=== PATIENT | male | born 1940 | race Caucasian/White ===

== ENCOUNTER → 2018-04-19 06:56 | Outpatient (CLI) | payer MEDICARE, OTHER, SELFPAY ==
[2018-04-19 07:56] LABS: AST(SGOT) 24 U/L (15-37); Alanine Aminotransfer ALT/SGPT 26 U/L (16-61); Albumin, Serum 3.6 g/dL (3.2-5.0); Alkaline Phosphatase 50 U/L (45-117); Bilirubin, Direct 0.14 mg/dL (0.00-0.30); Cholesterol 126 mg/dL (200); Globulin 3.3 g/dL (2.2-4.2); High Density Lipoprotein 50 mg/dL; Protein, Total 6.9 g/dL (6.4-8.2); Triglycerides 82 mg/dL; Very Low Density Lipoprotein 16 mg/dL (5-40)
== END ==
PROVIDERS: Family Provider Family Medicine; PCP Family Medicine; Visit Provider Internal Medicine Cardiovascular Disease
DX: I10 Essential (primary) hypertension (principal); E78.2 Mixed hyperlipidemia
CPT/HCPCS: 36415; 80061; 80076

== ENCOUNTER → 2018-05-01 06:09 | Outpatient (CLI) | payer MEDICARE, OTHER, SELFPAY ==
--- NOTE | 2018-05-01 16:20 | STRESSREP ---
Stress Test Report Exercise myocardial perfusion stress test. 78 year old man with a history of coronary artery disease status post pacemaker placement. Medications: Aspirin nitroglycerin rosuvastatin omeprazole. Stress protocol. Resting EKG demonstrates normal sinus rhythm with a rate of 60 bpm. Previous inferior infarct cannot be excluded resting blood pressures 130/84 mmHg. The patient exercised according to regular Macario protocol for total duration of 9 minutes maximum heart rate attained was 136 bpm is 95% maximum predicted heart rate the maximum workload attained was 10.1 metabolic equivalents. At rest there were no ST or T-wave changes noted suggest ischemia peak exercise upsloping ST changes only were noted with no meet the criteria for ischemia. No clinical angina was noted. The resting blood pressure 730/84 with a peak blood pressure 164/82 mmHg rate pressure product was 21,900. Myocardial perfusion protocol. 11.3 mCi of technetium 99m sestamibi was injected at rest. Patient exercised according to regular Macario protocol for total duration of 9 minutes. At peak exercise 33.1 mCi of technetium 99m sestamibi was injected stress images were obtained stress and rest images were reconstructed and compared in the short axis vertical long and horizontal long axis. Gated images were also obtained pre- Perfusion SPECT analysis: Review of the stress images demonstrate normal uptake of tracer noted in all areas of the myocardium. The resting images similarly demonstrate normal uptake of tracer noted in all areas of myocardium. No areas of reversibility noted suggest ischemia and no previous infarct is noted. Gated SPECT analysis: The gated ejection fraction is 58%. Conclusion: Normal pharmacologic myocardial perfusion stress test. Preserved ejection fraction.
== END ==
PROVIDERS: Family Provider Family Medicine; PCP Family Medicine; Visit Provider Internal Medicine Cardiovascular Disease
DX: I25.10 Atherosclerotic heart disease of native coronary artery without angina pectoris (principal)
CPT/HCPCS: 78452; 93017; A9500; A4216

== ENCOUNTER → 2018-06-08 10:03 | Outpatient (CLI) | payer MEDICARE, OTHER, SELFPAY ==
[2018-06-08 11:36] LABS: PSA,Total- Diagnostic 3.37 ng/mL (0.0-4.0)
== END ==
PROVIDERS: Family Provider Family Medicine; PCP Family Medicine; Visit Provider Nurse Practitioner Adult Health
DX: R97.20 Elevated prostate specific antigen [PSA] (principal)
CPT/HCPCS: 36415; 84153

== ENCOUNTER 2019-04-12 20:27 | Inpatient (IN) | payer MEDICARE, OTHER, SELFPAY ==
[2019-04-12] VITALS (7 sets, daily range): BP systolic 103–122; BP diastolic 63–80; PULSE 98–129; RESP 16–22; TEMP 38.8–38.9; O2SAT 94–98; BMI 25.1
[2019-04-12 21:32] LABS: Lactic Acid 1.7 mmol/L (0.4-2.0)
[2019-04-12 21:39] LABS: Absolute Lymphocyte Count 0.38 X10^3/uL (0.83-4.51); Absolute Neutrophil Count 9.5 X10^3/uL (2.0-7.7); Basophil# 0.02 X10^3/uL; Basophil% 0.2 % (0-1); Eosinophil# 0.04 X10^3/uL; Eosinophils% 0.4 % (0-5); Hematocrit 44.1 % (40-54); Hemoglobin 15.2 g/dL (13.0-16.5); Lymphocyte # 0.38 X10^3/ul (4.0); Lymphocyte % 3.8 % (19-41); Mean Corp Hgb Conc 34.5 g/dL (32-36); Mean Corpuscular Hgb 30.9 pg (27.0-32.0); Mean Corpuscular Volume 89.6 fL (80-94); Mean Platelet Vol. 10.1 fl (6.2-12.0); Monocyte# 0.19 X10^3/uL; Monocyte% 1.9 % (0-10); NRBC Flagged by Analyzer 0 % (0-5); Neutrophil # 9.46 X10^3/uL (2.7-7.7); Neutrophil % 93.3 % (47-70); POSITIVE DIFFERENTIAL YES; Platelet Count 160 K/mm3 (150-450); RBC Distribution Width CV 12.3 % (11.6-14.6); RBC Distribution Width SD 40.7 fl (35.1-43.9); Red Blood Count 4.92 M/mm3 (4.6-6.2); White Blood Count 10.1 K/mm3 (4.4-11.0)
[2019-04-12 21:43] LABS: International Normalized Ratio 1.1; Partial Thromboplast Time 25.7 Seconds (24.1-36.2); Prothrombin Time (Protime)PT. 13.8 SECONDS (11.7-14.9)
--- NOTE | 2019-04-12 21:45 | RAD_ITS ---
STUDY: X-RAY CHEST REASON FOR EXAM: Male, 79 years old. Cough TECHNIQUE: Frontal and lateral views COMPARISON: January 04, 2017 FINDINGS: Stable sternotomy wires and left-sided pacemaker. The lungs are expanded. Mild right basilar interstitial prominence. Stable right upper lobe granulomas similar to previous study. Normal size heart. Normal mediastinum and mina. Normal visualized pulmonary arteries. Normal visualized aortic arch and descending thoracic aorta. Mild degenerative changes of the thoracic spine. Normal visualized ribs, clavicles, and shoulders. There is no demonstrated abnormality of the visualized soft tissue structures of the upper abdomen. RAD/Chest PA and Lateral IMPRESSION: Mild right basilar interstitial prominence. Electronically Signed: Aashish Reyes DO at 21:58 EDT Tel [phone], Service support ,
[2019-04-12 21:47] LABS: ALB/GLOB Ratio 1.1 RATIO (0.9-2.4); AST(SGOT) 24 U/L (15-37); Alanine Aminotransfer ALT/SGPT 22 U/L (16-61); Albumin, Serum 3.8 g/dL (3.2-5.0); Alkaline Phosphatase 56 U/L (45-117); Anion Gap 7 (5-15); BUN 18 mg/dL (7-18); BUN/Creat Ratio 14.5 RATIO (10-20); Calcium,Total 8.4 mg/dL (8.5-10.1); Chloride 107 mmol/L (98-107); Creatinine, Serum 1.24 mg/dL (0.70-1.30); EST Glomerular Filtration Rate 60 mL/min (>60); Est Glom Filt Rate - Afr Amer 72 mL/min (>60); Estimated Creatinine Clearance 48.31 ml/min; Globulin 3.4 g/dL (2.2-4.2); Glucose 118 mg/dL (74-106); Potassium 3.4 mmol/L (3.5-5.1); Protein, Total 7.2 g/dL (6.4-8.2); Sodium Level 136 mmol/L (136-145)
[2019-04-12 21:51] LABS: Differential Indicated SCAN CRITERIA MET
[2019-04-12 22:17] LABS: Anisocytosis RARE; Platelet Estimate ADEQUATE (ADEQ)
[2019-04-12] MEDS: 0.9% Normal Saline 1,000 ML 999 ML IV (22:24)
[2019-04-12] MEDS: Acetaminophen 500 MG Tablet 1000 MG PO (22:24)
[2019-04-12] MEDS: Ondansetron 4 MG/2 ML Vial IV (22:24)
[2019-04-12 22:33] LABS: Mucous, Urine 0 SEEN /hpf (<or=2+); Squamous Epithelial Cells - UA 0 SEEN /hpf (0-5)
[2019-04-12 22:35] LABS: Color, Urine Yellow (Yellow); Glucose, Dipstick Normal (Normal); Ketone-Dipstick Negative (Negative); Leukocyte Esterase-Dipstick 100 /ul (Negative); Nitrite-Dipstick Positive (Negative); Occult Blood-Urine 25 /ul (Negative); Protein-Dipstick 30 mg/dl (Negative); Specific Gravity, Urine 1.005 (1.002-1.030); Urine Bilirubin Dipstick Negative (Negative); Urine Clarity Cloudy (Clear); Urine Urobilinogen 4 mg/dl (Normal)
[2019-04-12 22:41] LABS: Bacteria 2+ /hpf (None Seen); Red Blood Cells-Urine 0-5 SEEN /hpf (0-5); White Blood Cells 50-100 SEEN /hpf (0-5)
[2019-04-12] MEDS: Ceftriaxone 1 GM/50 ML BAG IV (22:57)
--- NOTE | 2019-04-12 23:36 | PCM.HP.STD ---
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 His took his temperature today and it was 103 and therefore brought him into the ER today. In the ER he was found to meet Sirs criteria with tachycardia and his fever. He does not have a white count however on labs UA demonstrated UTI. He was given a dose of IV Rocephin and started on some gentle fluids. Lactic acid was 1.7. Chest x-ray was also obtained because he has a history of coughing the last several days and this was essentially normal without a sign of consolidation or pneumonia. Past Medical History Past Medical History (Chronic Problems): Chronic Problems (Last Reviewed 04/18/18 @ 15:24 by Bill Asif MD) Valvular heart disease (Chronic) Presence of permanent cardiac pacemaker (Chronic) Mobitz (type) II atrioventricular block (Chronic) PPM placement Peripheral vascular disease (Chronic) endarterectomy 09/27/2006 Atherosclerosis of [place] coronary artery of [place] heart without angina pectoris (Chronic) PTCA of RCA 1998; CABG with DINERO to LAD, SVG to RCA 09/27/2006; Hypertension (Chronic) GERD (gastroesophageal reflux disease) (Chronic) Hyperlipidemia (Chronic) Medical History: Medical History (Last Reviewed 04/18/18 @ 15:24 by Bill Asif MD) Mobitz (type) II atrioventricular block (Chronic) I44.1 PPM placement Peripheral vascular disease (Chronic) I73.9 endarterectomy 09/27/2006 Atherosclerosis of [place] coronary artery of [place] heart without angina pectoris (Chronic) I25.10 PTCA of RCA 1998; CABG with DINERO to LAD, SVG to RCA 09/27/2006; Hypertension (Chronic) I10 GERD (gastroesophageal reflux disease) (Chronic) K21.9 Hyperlipidemia (Chronic) E78.5 Fever and chills (Acute) R50.9 Weakness (Acute) R53.1 Mitral valve prolapse I34.1 History of left heart catheterization Z98.890 Allergies No Known Allergies Allergy (Verified 04/12/19 20:28) Home Medications: Ambulatory Orders Medication Instructions Recorded Aspirin [Aspirin, Baby] 81 mg PO DAILY@0800 11/10/14 Nitroglycerin (INPATIENT USE) 0.4 mg SUBLINGUAL Q5M PRN 01/03/17 [Nitrostat] lisinopril 2.5 mg tablet 5 mg PO DAILY tab 04/18/18 Omeprazole [Prilosec] 20 mg PO DAILY 04/13/19 Rosuvastatin Calcium [Crestor] 40 mg PO DAILY 04/13/19 Surgical History: Surgical History (Last Reviewed 04/18/18 @ 15:24 by Bill Asif MD) Presence of permanent cardiac pacemaker (Chronic) Z95.0 H/O endarterectomy Z98.890 Hx of CABG Z95.1 Surgical History: cholecystectomy, coronary bypass surgery Psychiatric History: No pertinent psych hx Smoking Status: Never smoker Alcohol: None Drugs: None - *Family History Maternal Family History: Family History (Last Reviewed 04/18/18 @ 15:24 by Bill Asif MD) Mother Cancer History Items: Cancer Paternal Family History: Family History (Last Reviewed 04/18/18 @ 15:24 by Bill Asif MD) Mother Cancer History Items: Heart Disease Sibling Family History: Family History (Last Reviewed 04/18/18 @ 15:24 by Bill Asif MD) Mother Cancer History Items: No pertinent history Review of Systems Constitutional: Reports: Chills, Fever, Weakness. Denies: Weight Change HEENT: Denies: Head Aches, Sinus Congestion, Sinus Drainage Cardiovascular: Denies: Chest Pain, Palpitations Respiratory: Reports: Cough. Denies: Shortness of breath at rest, Sputum production Gastrointestinal: Denies: Abdominal Pain, Nausea, Vomiting Genitourinary: Reports: Dysuria. Denies: Frequency, Hematuria Musculoskeletal: Denies: Joint Pain, Joint Tenderness Skin: Denies: Rash, Wounds Neurological: Denies: Numbness, Tingling, Focal weakness Psychiatric: Denies: Anxiety, Depression Hematologic/ Lymphatic: Denies: Easy Bruising, Easy Bleeding VTE Information - Inpt Only VTE Present on Admission: No - Physical Exam General: Alert, Oriented x3, Cooperative, No apparent distress HEENT: Atraumatic, PERRLA, EOMI, Normocephalic Oral: Moist Mucosa Neck: Supple, No JVD Lungs: Clear to auscultation, Normal air movement, No rhonchi, No wheeze, No rales Cardiovascular: Regular rate, Regular Rhythm, Normal S1, Normal S2, No murmurs Abdomen: Soft, Non Tender, Non-Distended, No Hepato-splenomegaly Extremities: No edema, Capillary Refill Less than 3 Seconds Skin: No rashes, No breakdown Neurological: Neuro grossly intact, Sensory exam intact to light touch and pain Psych/Mental Status: Normal Affect, Appropriate Vital Signs Temp Pulse Resp BP Pulse Ox 101.8 F H 102 H 20 H 114/71 96 04/12/19 23:01 04/12/19 23:00 04/12/19 23:00 04/12/19 23:00 04/12/19 23:00 Oxygen Flow Rate (L/min) 2 Oxygen Delivery Method Nasal Cannula Weight: 170 lb Body Mass Index (BMI) 25.1 Laboratory Tests Past 24 Hrs 04/12/19 04/12/19 04/12/19 20:55 20:55 20:55 WBC 10.1 RBC 4.92 Hgb 15.2 Hct 44.1 MCV 89.6 MCH 30.9 MCHC 34.5 RDW Std Deviation 40.7 RDW Coeff of Donell 12.3 Plt Count 160 MPV 10.1 Immature Gran % (Auto) 0.400 Neut % (Auto) 93.3 H Lymph % (Auto) 3.8 L [place] % (Auto) 1.9 Eos % (Auto) 0.4 Baso % (Auto) 0.2 Absolute Neuts (auto) 9.5 H Absolute Lymphs (auto) 0.38 L Absolute Nucleated RBC 0.00 Nucleated RBC % 0 Differential Comment SEE COMMENT Platelet Estimate ADEQUATE Anisocytosis RARE PT 13.8 INR 1.1 APTT 25.7 Sodium Potassium Chloride Carbon Dioxide Anion Gap BUN Creatinine Estim Creat Clear Calc Est GFR (MDRD) Af Amer Est GFR (MDRD) Non-Af BUN/Creatinine Ratio Glucose Lactic Acid 1.7 Calcium Total Bilirubin AST ALT Alkaline Phosphatase Total Protein Albumin Globulin Albumin/Globulin Ratio Urine Color Urine Clarity Urine pH Ur Specific [place] Urine Protein Urine Glucose (UA) Urine Ketones Urine Occult Blood Urine Nitrite Urine Bilirubin Urine Urobilinogen Ur Leukocyte Esterase Urine RBC Urine WBC Ur Squamous Epith Cells Urine Bacteria Urine Mucus 04/12/19 04/12/19 20:55 22:30 WBC RBC Hgb Hct MCV MCH MCHC RDW Std Deviation RDW Coeff of [place] Plt Count MPV Immature Gran % (Auto) Neut % (Auto) Lymph % (Auto) [place] % (Auto) Eos % (Auto) Baso % (Auto) Absolute Neuts (auto) Absolute Lymphs (auto) Absolute Nucleated RBC Nucleated RBC % Differential Comment Platelet Estimate Anisocytosis PT INR APTT Sodium 136 Potassium 3.4 L Chloride 107 Carbon Dioxide 22.0 Anion Gap 7 BUN 18 Creatinine 1.24 Estim Creat Clear Calc 48.31 Est GFR (MDRD) Af Amer 72 Est GFR (MDRD) Non-Af 60 BUN/Creatinine Ratio 14.5 Glucose 118 H Lactic Acid Calcium 8.4 L Total Bilirubin 0.90 AST 24 ALT 22 Alkaline Phosphatase 56 Total Protein 7.2 Albumin 3.8 Globulin 3.4 Albumin/Globulin Ratio 1.1 Urine Color Yellow Urine Clarity Cloudy Urine pH 7.0 Ur Specific [place] 1.005 Urine Protein 30 H Urine Glucose (UA) Normal Urine Ketones Negative Urine Occult Blood 25 H Urine Nitrite Positive H Urine Bilirubin Negative Urine Urobilinogen 4 H Ur Leukocyte Esterase 100 H Urine RBC 0-5 SEEN Urine WBC 50-100 SEEN Ur Squamous Epith Cells 0 SEEN Urine Bacteria 2+ Urine Mucus 0 SEEN Assessment/Plan All Active Problems (Last Reviewed 04/18/18 @ 15:24 by Bill Asif MD) Fever and chills (Acute) Weakness (Acute) 1. Sepsis secondary to UTI -Continue with Rocephin -IV fluids at 75, lactate is normal -Blood cultures and urine cultures are pending 2. HLD/HTN/Mobitz type II AV block status post pacemaker placement -Blood pressure and vital signs are stable -Continue with his home blood pressure medications -Continue with aspirin 3. GERD -Stable -Continue with PPI DVT: Lovenox Code Visit Inpatient E&M: 97267 Init Hosp L2
--- NOTE | 2019-04-12 23:40 | ED.VISSUMM ---
- ER Visit Summary Date of Service: 04/12/19 Chief Complaint: Fever History of Present Illness: The patient is a [address] Marv Rojas and Dr. Asif. He reports he has a fever that began today. States that yesterday he had a cough and a sore throat. However, those symptoms have resolved. He denies any abdominal pain. Reports he been nauseated and vomited 3 times today. No blood in his emesis. He had one episode of diarrhea. No blood in the stools. He denies any dysuria or frequency. He does complain of generalized weakness and confusion. Physical Examination: Vitals: 102.0, 114/78, 102, 20, 96% room air which is not hypoxic. General: Well-nourished and well-developed. Head: Normocephalic atraumatic. Neck: Supple, no lymphadenopathy. No JVD. Nontender. Cardiovascular: Regular rate and rhythm. No murmurs. Respiratory: No respiratory distress. Clear to auscultation bilaterally. Abdominal: Soft, nontender, nondistended, normal bowel sounds. No guarding, rebound, or peritoneal signs. Back: Nontender. No CVA tenderness. Extremities: Nontender, no edema. Skin: Normal color, no rash. Neurologic: Alert and oriented ?3. Cranial nerves II through XII are intact. Normal strength and sensation. Psych: Normal affect. Test Results: CBC shows segmented with a 93 lymphs at 4. Chem-7 shows potassium 3.4, glucose 118, calcium 8.4. LFTs are normal. Coags are normal. UA does show an infection. Chest x-ray shows chronic changes. Emergency Department Course and Treatment: Patient was given a liter of normal saline. He was given Tylenol p.o. and Rocephin IV. He had urine and blood cultures sent. Treatment Plan: Patient was discussed with Dr. Browning. He will be admitted to the hospital for further evaluation and treatment. Disposition: Admitted in improved condition. Impression: 1. Sepsis. 2. UTI. This note was generated with [employer] software. It may contain incorrect words, spelling, and punctuation that were not noted in review of the chart prior to signing
[2019-04-13] VITALS (14 sets, daily range): BP systolic 92–119; BP diastolic 49–65; PULSE 75–90; RESP 15–22; TEMP 36.8–38.7; O2SAT 94–100; BMI 25.2
[2019-04-13] MEDS: 0.9% Normal Saline 1,000 ML 75 ML IV ×2 (01:48→15:22)
[2019-04-13 06:46] LABS: Absolute Lymphocyte Count 0.42 X10^3/uL (0.83-4.51); Absolute Neutrophil Count 10.4 X10^3/uL (2.0-7.7); Basophil# 0.02 X10^3/uL; Basophil% 0.2 % (0-1); Eosinophil# 0.09 X10^3/uL; Eosinophils% 0.8 % (0-5); Hematocrit 38.8 % (40-54); Hemoglobin 13.2 g/dL (13.0-16.5); Lymphocyte # 0.42 X10^3/ul (4.0); Lymphocyte % 3.6 % (19-41); Mean Corpuscular Hgb 30.8 pg (27.0-32.0); Mean Corpuscular Volume 90.4 fL (80-94); Mean Platelet Vol. 9.9 fl (6.2-12.0); Monocyte# 0.53 X10^3/uL; Monocyte% 4.6 % (0-10); NRBC Flagged by Analyzer 0 % (0-5); Neutrophil # 10.37 X10^3/uL (2.7-7.7); Neutrophil % 90.1 % (47-70); POSITIVE DIFFERENTIAL YES; POSITIVE MORPHOLOGY YES; Platelet Count 121 K/mm3 (150-450); RBC Distribution Width CV 12.8 % (11.6-14.6); RBC Distribution Width SD 41.8 fl (35.1-43.9); Red Blood Count 4.29 M/mm3 (4.6-6.2); White Blood Count 11.5 K/mm3 (4.4-11.0)
[2019-04-13 06:58] LABS: Differential Indicated SCAN CRITERIA MET
[2019-04-13 07:16] LABS: Anion Gap 5 (5-15); BUN 18 mg/dL (7-18); BUN/Creat Ratio 16.1 RATIO (10-20); Calcium,Total 7.8 mg/dL (8.5-10.1); Chloride 108 mmol/L (98-107); Creatinine, Serum 1.12 mg/dL (0.70-1.30); EST Glomerular Filtration Rate 67 mL/min (>60); Est Glom Filt Rate - Afr Amer 81 mL/min (>60); Estimated Creatinine Clearance 53.48 ml/min; Glucose 99 mg/dL (74-106); Potassium 3.8 mmol/L (3.5-5.1); Sodium Level 139 mmol/L (136-145)
--- NOTE | 2019-04-13 08:37 | PCM.PROGNOTE ---
Subjective: Chief complaint: Follow-up after admission for acute cystitis with sepsis. Patient seen and examined. No acute events overnight. Today, he feels better, complains of some dysuria. Denies any more fever. He denied cough or sputum production. He has no more nausea. Denies abdominal pain, constipation or diarrhea. His blood pressure has been borderline but he is asymptomatic, other vital signs are stable. - Physical Exam General: Alert, Oriented x3, Cooperative, No apparent distress HEENT: Atraumatic, PERRLA, EOMI, Normocephalic Oral: Moist Mucosa, No Gingival or Mucosal Lesions/ Ulcerations Neck: Supple, No JVD, Negative Carotid Bruits, Trachea Midline, Thyroid Normal Size and Texture Lungs: Clear to auscultation, Normal air movement, No rhonchi, No rales, Diminished Cardiovascular: Regular rate, Regular Rhythm, Normal S1, Normal S2, PMI Normal Abdomen: Bowel Sounds Present, Soft, Non Tender, Non-Distended, No Hepato-splenomegaly Extremities: No clubbing, No cyanosis, No edema Skin: No rashes, No breakdown Lymphatic: No Cervical, Supraclavicular, or Inguinal Adenopathy Neurological: Cranial nerves II-XII grossly intact, Motor Exam 5/5 strength throughout Psych/Mental Status: Normal Affect, Appropriate, Alert and oriented to time, place, person, mood and affect Vital Signs Temp Pulse Resp BP Pulse Ox 99.0 F 83 20 H 94/51 L 94 04/13/19 05:30 04/13/19 07:10 04/13/19 05:30 04/13/19 05:30 04/13/19 05:30 Oxygen Flow Rate (L/min) 2 Oxygen Delivery Method Room Air Weight: 170 lb 10.205 oz Body Mass Index (BMI) 25.2 Intake and Output for Last 24 Hours 04/11/19 04/12/19 04/13/19 23:59 23:59 23:59 Intake Total 259 / 259 Balance 259 / 259 Laboratory Tests Past 24 Hrs 04/12/19 04/12/19 04/12/19 20:55 20:55 20:55 WBC 10.1 RBC 4.92 Hgb 15.2 Hct 44.1 MCV 89.6 MCH 30.9 MCHC 34.5 RDW Std Deviation 40.7 RDW Coeff of [place]ell 12.3 Plt Count 160 MPV 10.1 Immature Gran % (Auto) 0.400 Neut % (Auto) 93.3 H Lymph % (Auto) 3.8 L [place] % (Auto) 1.9 Eos % (Auto) 0.4 Baso % (Auto) 0.2 Absolute Neuts (auto) 9.5 H Absolute Lymphs (auto) 0.38 L Absolute Nucleated RBC 0.00 Nucleated RBC % 0 Differential Comment SEE COMMENT Platelet Estimate ADEQUATE Anisocytosis RARE PT 13.8 INR 1.1 APTT 25.7 Sodium Potassium Chloride Carbon Dioxide Anion Gap BUN Creatinine Estim Creat Clear Calc Est GFR (MDRD) Af Amer Est GFR (MDRD) Non-Af BUN/Creatinine Ratio Glucose Lactic Acid 1.7 Calcium Total Bilirubin AST ALT Alkaline Phosphatase Total Protein Albumin Globulin Albumin/Globulin Ratio Urine Color Urine Clarity Urine pH Ur Specific [place] Urine Protein Urine Glucose (UA) Urine Ketones Urine Occult Blood Urine Nitrite Urine Bilirubin Urine Urobilinogen Ur Leukocyte Esterase Urine RBC Urine WBC Ur Squamous Epith Cells Urine Bacteria Urine Mucus 04/12/19 04/12/19 04/13/19 20:55 22:30 05:34 WBC 11.5 H RBC 4.29 L Hgb 13.2 Hct 38.8 L MCV 90.4 MCH 30.8 MCHC 34.0 RDW Std Deviation 41.8 RDW Coeff of [place] 12.8 Plt Count 121 L MPV 9.9 Immature Gran % (Auto) 0.700 Neut % (Auto) 90.1 H Lymph % (Auto) 3.6 L [place] % (Auto) 4.6 Eos % (Auto) 0.8 Baso % (Auto) 0.2 Absolute Neuts (auto) 10.4 H Absolute Lymphs (auto) 0.42 L Absolute Nucleated RBC 0.00 Nucleated RBC % 0 Differential Comment COMMENT Platelet Estimate Anisocytosis PT INR APTT Sodium 136 Potassium 3.4 L Chloride 107 Carbon Dioxide 22.0 Anion Gap 7 BUN 18 Creatinine 1.24 Estim Creat Clear Calc 48.31 Est GFR (MDRD) Af Amer 72 Est GFR (MDRD) Non-Af 60 BUN/Creatinine Ratio 14.5 Glucose 118 H Lactic Acid Calcium 8.4 L Total Bilirubin 0.90 AST 24 ALT 22 Alkaline Phosphatase 56 Total Protein 7.2 Albumin 3.8 Globulin 3.4 Albumin/Globulin Ratio 1.1 Urine Color Yellow Urine Clarity Cloudy Urine pH 7.0 Ur Specific [place] 1.005 Urine Protein 30 H Urine Glucose (UA) Normal Urine Ketones Negative Urine Occult Blood 25 H Urine Nitrite Positive H Urine Bilirubin Negative Urine Urobilinogen 4 H Ur Leukocyte Esterase 100 H Urine RBC 0-5 SEEN Urine WBC 50-100 SEEN Ur Squamous Epith Cells 0 SEEN Urine Bacteria 2+ Urine Mucus 0 SEEN 04/13/19 05:34 WBC RBC Hgb Hct MCV MCH MCHC RDW Std Deviation RDW Coeff of [place] Plt Count MPV Immature Gran % (Auto) Neut % (Auto) Lymph % (Auto) [place] % (Auto) Eos % (Auto) Baso % (Auto) Absolute Neuts (auto) Absolute Lymphs (auto) Absolute Nucleated RBC Nucleated RBC % Differential Comment Platelet Estimate Anisocytosis PT INR APTT Sodium 139 Potassium 3.8 Chloride 108 H Carbon Dioxide 26.0 Anion Gap 5 BUN 18 Creatinine 1.12 Estim Creat Clear Calc 53.48 Est GFR (MDRD) Af Amer 81 Est GFR (MDRD) Non-Af 67 BUN/Creatinine Ratio 16.1 Glucose 99 Lactic Acid Calcium 7.8 L Total Bilirubin AST ALT Alkaline Phosphatase Total Protein Albumin Globulin Albumin/Globulin Ratio Urine Color Urine Clarity Urine pH Ur Specific [place] Urine Protein Urine Glucose (UA) Urine Ketones Urine Occult Blood Urine Nitrite Urine Bilirubin Urine Urobilinogen Ur Leukocyte Esterase Urine RBC Urine WBC Ur Squamous Epith Cells Urine Bacteria Urine Mucus Medical Necessity - Tobacco Use Smoking Status: Never smoker Tobacco Use: Non-smoker Assessment/Plan This is a 79 years old male patient presented to the emergency room because of fever and weakness, found to have acute cystitis with sepsis and he was admitted for treatment. #1 acute cystitis/sepsis: He is on IV Rocephin. On admission, patient was febrile but this morning, he has normal fever. Blood pressure is borderline, asymptomatic, other vital signs are stable. Blood and urine cultures are pending. Plan to continue same treatment. #2 Mobitz type II AV block: Status post pacemaker. Heart rate stable, no symptoms. #3 CAD status post stents and CABG: Stable, no chest pain or shortness of breath. Continue aspirin, statins and lisinopril. #4 hypertension: Blood pressure is borderline, patient is asymptomatic. He is only on 2.5 mg of lisinopril. #5 hyperlipidemia: Continue statins. #6 GERD: Continue PPI. #7 peripheral vascular disease: Stable, continue aspirin and statins. #8 DVT prophylaxis: Subcu Lovenox. This note was generated with [employer] dictation software. It may contain incorrect words, spelling, and punctuation that were not noted in checking the note before signing. Code Visit Inpatient E&M: 55981 Subs Hosp L2
[2019-04-13] MEDS: Enoxaparin 40 MG/0.4 ML Syringe SC (09:08)
[2019-04-13] MEDS: Pantoprazole Sodium 20 MG Tablet PO (09:11)
--- NOTE | 2019-04-13 11:24 | CASEMGMT ---
RAUL BELTRAN assessment: Face to Face with patient for initial transition planning/care coordination assessment. RAUL BELTRAN introduced self and role at [facility], pt voices understanding and consents to assessment at this time. Pt is lying in bed in no distress at this time. Pt is A/Ox4 at this time and answers all questions appropriately at this time. Care providers, pharmacy, and demographics verified at this time. PCP: Crystal Specialists: Laya, cardio Preferred Pharmacy: [facility] Insurance: [facility] A/B, [employer] Prescription Benefit: Pt states does not have Rx coverage and states no concerns with getting meds at this time. Living Will/HPOA: Pt states has LW/HPOA and is aware that they are not currently on file at [facility] at this time. Pt states , Viviane Whitfield, is HPOA. LNOK: Viviane Whitfield, ; Chula Whitfield III, son Living Arrangements: Pt states lives with in 2 story home with bedroom on 2nd floor and states no concerns at home at this time. Pt states is normally independent with ADL's. Transportation: Pt states drives self and states no transportation concerns at this time. DME/HHC: Pt states has grab bars and shower chair and states no need for any further DME at this time. Pt states no hx of HHC or SNF in the past. Pt states no concerns with going home at time of discharge. Pt states is retired. Pt states does not smoke but does drink ETOH occasionally. Pt states no further concerns/needs at this time. CM to follow PT/OT evals and for any further discharge planning/needs. Advised pt to ask for CM if any further questions/concerns/needs arise, voices understanding. Pt Goal: Home Plan: [place] RAUL BELTRAN
[2019-04-13] MEDS: Acetaminophen 325 MG Tablet 650 MG PO ×2 (14:50→21:40)
[2019-04-13] MEDS: Atorvastatin Calcium 80 MG Tablet PO (21:40)
[2019-04-14] VITALS (9 sets, daily range): BP systolic 118–134; BP diastolic 67–72; PULSE 67–94; RESP 16–17; TEMP 36.7–37.4; O2SAT 93–100
[2019-04-14] MEDS: 0.9% Normal Saline 1,000 ML 75 ML IV ×2 (04:40→15:28)
[2019-04-14 06:44] LABS: Absolute Lymphocyte Count 0.65 X10^3/uL (0.83-4.51); Absolute Neutrophil Count 12.9 X10^3/uL (2.0-7.7); Basophil# 0.02 X10^3/uL; Basophil% 0.1 % (0-1); Eosinophil# 0.01 X10^3/uL; Eosinophils% 0.1 % (0-5); Hematocrit 37.2 % (40-54); Hemoglobin 12.6 g/dL (13.0-16.5); Lymphocyte # 0.65 X10^3/ul (4.0); Lymphocyte % 4.4 % (19-41); Mean Corp Hgb Conc 33.9 g/dL (32-36); Mean Corpuscular Hgb 30.7 pg (27.0-32.0); Mean Corpuscular Volume 90.5 fL (80-94); Mean Platelet Vol. 10.7 fl (6.2-12.0); Monocyte# 0.94 X10^3/uL; Monocyte% 6.4 % (0-10); NRBC Flagged by Analyzer 0 % (0-5); Neutrophil % 87.1 % (47-70); POSITIVE MORPHOLOGY YES; Platelet Count 87 K/mm3 (150-450); Red Blood Count 4.11 M/mm3 (4.6-6.2); White Blood Count 14.8 K/mm3 (4.4-11.0)
[2019-04-14 07:17] LABS: Differential Indicated SCAN CRITERIA MET
[2019-04-14 07:36] LABS: Differential Comment SCANNED
--- NOTE | 2019-04-14 08:23 | PN_ITS ---
Subjective: Chief complaint: Follow-up after admission for acute cystitis with sepsis, developed gram-negative bacteremia. Patient seen and examined. No acute events overnight. Patient complained of urinary retention, needed straight cath last night. Again today, he complained of urinary retention. He mentioned that he takes Flomax at home but it was not listed on his home medication list. He still having spikes of fever. Other vital signs are stable. - Physical Exam General: Alert, Oriented x3, Cooperative, No apparent distress HEENT: Atraumatic, PERRLA, EOMI, Normocephalic Oral: Moist Mucosa, No Gingival or Mucosal Lesions/ Ulcerations Neck: Supple, No JVD, Negative Carotid Bruits, Trachea Midline, Thyroid Normal Size and Texture Lungs: Clear to auscultation, Normal air movement, No rhonchi, No wheeze, No rales Cardiovascular: Regular rate, Regular Rhythm, Normal S1, Normal S2, PMI Normal Abdomen: Bowel Sounds Present, Soft, Non Tender, Non-Distended, No Hepato- splenomegaly Extremities: No clubbing, No cyanosis, No edema Skin: No rashes, No breakdown Lymphatic: No Cervical, Supraclavicular, or Inguinal Adenopathy Neurological: Cranial nerves II-XII grossly intact, Neuro grossly intact Psych/Mental Status: Normal Affect, Appropriate, Alert and oriented to time, place, person, mood and affect Vital Signs Temp Pulse Resp BP Pulse Ox 98.0 F 77 17 119/67 100 04/14/19 04:45 04/14/19 07:51 04/14/19 04:45 04/14/19 04:45 04/14/19 04:45 Oxygen Flow Rate (L/min) 2 Oxygen Delivery Method Room Air Weight: 170 lb 10.205 oz Body Mass Index (BMI) 25.2 Intake and Output for Last 24 Hours 04/12/19 04/13/19 04/14/19 23:59 23:59 23:59 Intake Total 2293 / 2990 1072 / 1072 Output Total 725 / 725 Balance 2293 / 2990 347 / 347 Microbiology Past 72 Hours 04/12/19 22:43 Blood Culture - Preliminary Blood Culture (Wb) - Right Hand GNR lactose operating room assistant 04/12/19 22:30 Urine Culture - Preliminary Urine, Clean Catch Presumptive E. coli Laboratory Tests Past 24 Hrs 07/27/19 05:15 WBC 14.8 H RBC 4.11 L Hgb 12.6 L Hct 37.2 L MCV 90.5 MCH 30.7 MCHC 33.9 RDW Std Deviation 43.0 RDW Coeff of Donell 13.0 Plt Count 87 L MPV 10.7 Immature Gran % (Auto) 1.900 H Neut % (Auto) 87.1 H Lymph % (Auto) 4.4 L [place] % (Auto) 6.4 Eos % (Auto) 0.1 Baso % (Auto) 0.1 Absolute Neuts (auto) 12.9 H Absolute Lymphs (auto) 0.65 L Absolute Nucleated RBC 0.00 Nucleated RBC % 0 Differential Comment SCANNED Microbiology 04/12/19 22:43 Blood Culture (Wb) - Right Hand Blood Culture - Preliminary GNR lactose operating room assistant 04/12/19 22:30 Urine, Clean Catch Urine Culture - Preliminary Presumptive E. coli Medical Necessity - Tobacco Use Smoking Status: Never smoker Tobacco Use: Non-smoker Assessment/Plan This is a 79 years old male patient presented to the emergency room because of fever and weakness, found to have acute cystitis with sepsis and he was admitted for treatment. #1 acute cystitis/sepsis: He is on IV Rocephin. He is still having spikes of fever, white blood cell count is trending up. Other vital signs are stable. Urine culture revealed presumptive E. coli, final is pending. Blood culture revealed gram-negative rods, final is pending. Plan to continue same treatment, repeat CBC and BMP tomorrow morning. #2 gram-negative bacteremia: Likely source is the acute cystitis. Patient had a history of E. coli bacteremia back in 2015. He is on IV Rocephin as above. Plan to repeat blood culture today. #3 urinary retention: In context of history of benign prostatic hypertrophy, patient states that he takes Flomax at home. Plan for straight catheterization as needed, start Flomax. 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 Heart rate stable, no symptoms. #5 CAD status post stents and CABG: Stable, no chest pain or shortness of breath. Continue aspirin, statins and lisinopril. #6 hypertension: Blood pressure stable, continue lisinopril. #7 hyperlipidemia: Continue statins. #8 GERD: Continue PPI. #9 peripheral vascular disease: Stable, continue aspirin and statins. #10 DVT prophylaxis: Subcu Lovenox. This note was generated with [employer] dictation software. It may contain incorrect words, spelling, and punctuation that were not noted in checking the note before signing. Code Visit Inpatient E&M: 24201 Subs Hosp L3
[2019-04-14] MEDS: Aspirin 81 MG TAB.CHEW PO (08:43)
[2019-04-14] MEDS: Lisinopril 5 MG Tablet PO (08:44)
[2019-04-14] MEDS: Pantoprazole Sodium 20 MG Tablet PO (08:44)
[2019-04-14] MEDS: Tamsulosin HCl 0.4 MG Capsule PO (11:46)
--- NOTE | 2019-04-14 14:47 | NURSING ---
Straight cathed patient at this time for 550 - bladder scanned at 1410 for 552. Patient had begun to have pressure and had two failed attempts at voiding.
[2019-04-14] MEDS: Atorvastatin Calcium 80 MG Tablet PO (21:31)
[2019-04-15] VITALS (9 sets, daily range): BP systolic 116–133; BP diastolic 69–78; PULSE 73–80; RESP 16–18; TEMP 36.7–37.2; O2SAT 94–96
--- NOTE | 2019-04-15 01:30 | NURSING ---
REPORT GIVEN TO Janette ARMAS RN AT THIS TIME.
--- NOTE | 2019-04-15 01:33 | NURSING ---
Taking over patient care at this time from Cecily Henry RN
[2019-04-15 05:25] LABS: Absolute Lymphocyte Count 0.74 X10^3/uL (0.83-4.51); Absolute Neutrophil Count 8.6 X10^3/uL (2.0-7.7); Basophil# 0.02 X10^3/uL; Basophil% 0.2 % (0-1); Eosinophil# 0.09 X10^3/uL; Eosinophils% 0.9 % (0-5); Hematocrit 36.3 % (40-54); Hemoglobin 12.2 g/dL (13.0-16.5); Lymphocyte # 0.74 X10^3/ul (4.0); Lymphocyte % 7.1 % (19-41); Mean Corp Hgb Conc 33.6 g/dL (32-36); Mean Corpuscular Hgb 30.7 pg (27.0-32.0); Mean Corpuscular Volume 91.4 fL (80-94); Mean Platelet Vol. 10.5 fl (6.2-12.0); Monocyte# 0.84 X10^3/uL; Monocyte% 8.1 % (0-10); NRBC Flagged by Analyzer 0 % (0-5); Neutrophil # 8.56 X10^3/uL (2.7-7.7); Neutrophil % 82.7 % (47-70); Platelet Count 86 K/mm3 (150-450); RBC Distribution Width CV 12.8 % (11.6-14.6); RBC Distribution Width SD 43.4 fl (35.1-43.9); Red Blood Count 3.97 M/mm3 (4.6-6.2); White Blood Count 10.4 K/mm3 (4.4-11.0)
[2019-04-15 05:50] LABS: Anion Gap 9 (5-15); BUN 12 mg/dL (7-18); BUN/Creat Ratio 12.2 RATIO (10-20); Calcium,Total 7.9 mg/dL (8.5-10.1); Chloride 110 mmol/L (98-107); Creatinine, Serum 0.99 mg/dL (0.70-1.30); EST Glomerular Filtration Rate 78 mL/min (>60); Est Glom Filt Rate - Afr Amer 94 mL/min (>60); Glucose 103 mg/dL (74-106); Potassium 3.5 mmol/L (3.5-5.1); Sodium Level 142 mmol/L (136-145)
[2019-04-15] MEDS: 0.9% Normal Saline 1,000 ML 75 ML IV (06:18)
--- NOTE | 2019-04-15 08:12 | PCM.PROGNOTE ---
Subjective: Chief complaint: Follow-up after admission for acute cystitis, sepsis and E. coli bacteremia. Patient seen and examined. No acute events overnight. Today, he is feeling better, no complaints. He has been able to urinate after started on Flomax. Denies fever chills. His vital signs are stable. - Physical Exam General: Alert, Oriented x3, Cooperative, No apparent distress HEENT: Atraumatic, PERRLA, EOMI, Normocephalic Oral: Moist Mucosa, No Gingival or Mucosal Lesions/ Ulcerations Neck: Supple, No JVD, Negative Carotid Bruits, Trachea Midline, Thyroid Normal Size and Texture Lungs: Clear to auscultation, Normal air movement, No rhonchi, No wheeze, No rales Cardiovascular: Regular rate, Regular Rhythm, Normal S1, Normal S2, PMI Normal Abdomen: Bowel Sounds Present, Soft, Non Tender, Non-Distended, No Hepato-splenomegaly Extremities: No clubbing, No cyanosis, No edema Skin: No rashes, No breakdown Lymphatic: No Cervical, Supraclavicular, or Inguinal Adenopathy Neurological: Cranial nerves II-XII grossly intact, Neuro grossly intact Psych/Mental Status: Normal Affect, Appropriate Vital Signs Temp Pulse Resp BP Pulse Ox 98.1 F 73 16 116/69 96 04/15/19 03:15 04/15/19 07:22 04/15/19 03:15 04/15/19 03:15 04/15/19 03:15 Oxygen Flow Rate (L/min) 2 Oxygen Delivery Method Room Air Weight: 170 lb 10.205 oz Body Mass Index (BMI) 25.2 Intake and Output for Last 24 Hours 04/13/19 04/14/19 04/15/19 23:59 23:59 23:59 Intake Total 2293 / 2990 3682 / 3682 475 / 475 Output Total 1825 / 1825 350 / 350 Balance 2293 / 2990 1857 / 1857 125 / 125 Microbiology Past 72 Hours 04/12/19 22:30 Urine Culture - Final Urine, Clean Catch Presumptive E. coli 04/12/19 22:43 Blood Culture - Preliminary Blood Culture (Wb) - Right Hand GNR lactose email marketing executive Laboratory Tests Past 24 Hrs 04/15/19 04/15/19 05:05 05:05 WBC 10.4 RBC 3.97 L Hgb 12.2 L Hct 36.3 L MCV 91.4 MCH 30.7 MCHC 33.6 RDW Std Deviation 43.4 RDW Coeff of Donell 12.8 Plt Count 86 L MPV 10.5 Immature Gran % (Auto) 1.000 H Neut % (Auto) 82.7 H Lymph % (Auto) 7.1 L [place] % (Auto) 8.1 Eos % (Auto) 0.9 Baso % (Auto) 0.2 Absolute Neuts (auto) 8.6 H Absolute Lymphs (auto) 0.74 L Absolute Nucleated RBC 0.00 Nucleated RBC % 0 Sodium 142 Potassium 3.5 Chloride 110 H Carbon Dioxide 23.0 Anion Gap 9 BUN 12 Creatinine 0.99 Estim Creat Clear Calc 60.50 Est GFR (MDRD) Af Amer 94 Est GFR (MDRD) Non-Af 78 BUN/Creatinine Ratio 12.2 Glucose 103 Calcium 7.9 L Medical Necessity - Tobacco Use Smoking Status: Never smoker Tobacco Use: Non-smoker Assessment/Plan This is a 79 years old male patient presented to the emergency room because of fever and weakness, found to have acute cystitis with sepsis, E. coli bacteremia and he was admitted for treatment. #1 E. coli acute cystitis/sepsis: Remained on IV Rocephin. Has been afebrile overnight, other vitals stable. White blood cell count is back to normal. Urine culture revealed E. coli which was pansensitive. Plan to continue same treatment, anticipate discharge home tomorrow awaiting results of the repeat blood culture. #2 E. coli bacteremia: Likely source is the acute cystitis. On IV Rocephin as above. Initial blood culture revealed E. coli, it was pansensitive, sensitive to Rocephin. Repeat blood cultures pending. Patient had a history of E. coli bacteremia back in 2014. Plan to completion, awaiting results of repeat blood culture. #3 urinary retention: Started on Flomax, patient has been able to urinate, improving. 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 Heart rate stable, no symptoms. #5 CAD status post stents and CABG: Stable, no chest pain or shortness of breath. Continue aspirin, statins and lisinopril. #6 hypertension: Blood pressure stable, continue lisinopril. #7 hyperlipidemia: Continue statins. #8 GERD: Continue PPI. #9 peripheral vascular disease: Stable, continue aspirin and statins. #10 DVT prophylaxis: Subcu Lovenox. This note was generated with [employer] dictation software. It may contain incorrect words, spelling, and punctuation that were not noted in checking the note before signing. Code Visit Inpatient E&M: 95555 Subs Hosp L2
[2019-04-15] MEDS: Lisinopril 5 MG Tablet PO (10:02)
[2019-04-15] MEDS: Pantoprazole Sodium 20 MG Tablet PO (10:02)
[2019-04-15] MEDS: Aspirin 81 MG TAB.CHEW PO (10:02)
[2019-04-15] MEDS: Tamsulosin HCl 0.4 MG Capsule PO (17:28)
[2019-04-15] MEDS: Atorvastatin Calcium 80 MG Tablet PO (21:10)
[2019-04-16] MEDS: 0.9% NaCl Peripheral Flush Adult/Peds IV (00:24)
[2019-04-16 02:50] VITALS: BP 113/67; PULSE 78; RESP 18; TEMP 37; O2SAT 94
[2019-04-16 03:01] VITALS: PULSE 79
[2019-04-16 07:06] VITALS: PULSE 68
[2019-04-16 07:45] LABS: Bedside Glucose 130 mg/dL (70-110)
[2019-04-16 08:12] VITALS: BP 130/75; PULSE 76; RESP 16; TEMP 37.1; O2SAT 95
[2019-04-16] MEDS: Aspirin 81 MG TAB.CHEW PO (08:15)
[2019-04-16] MEDS: Lisinopril 5 MG Tablet PO (08:15)
[2019-04-16] MEDS: Pantoprazole Sodium 20 MG Tablet PO (08:21)
--- NOTE | 2019-04-16 08:40 | DCINST_ITS ---
You will use the following diet at home:: Cardiac Your food should be the consistency of: Regular Discharge Activity: Return to Normal Activity Weight Bearing Status: Weight bearing as tolerated Call your doctor if you observe: Fever of 101 or Higher, Shortness of breath, Dizziness, Fainting spells, Chest pain, Increased palpitations (irregular heartbeat), Uncontrolled pain Allergies/Adverse Reactions: Allergies No Known Allergies Allergy (Verified 04/12/19 20:28) Medications to take at Discharge Aspirin [Aspirin, Baby] 81 mg PO DAILY@0800 11/10/14 Nitroglycerin (INPATIENT USE) [Nitrostat] 0.4 mg SUBLINGUAL Q5M PRN 01/03/17 lisinopril 2.5 mg tablet 5 mg PO DAILY tab 04/18/18 Omeprazole [Prilosec] 20 mg PO DAILY 04/13/19 Rosuvastatin Calcium [Crestor] 40 mg PO DAILY 04/13/19 Cefdinir [Omnicef [equiv]] 300 mg PO Q12H #20 cap 04/16/19 Tamsulosin HCl [Flomax] 0.4 mg PO DAILY@1730 #90 cap 04/16/19 The following prescriptions were given: Tamsulosin HCl [Flomax] 0.4 mg PO DAILY@1730 #90 cap Transmission Status: Pending to [id number] Cefdinir [Omnicef [equiv]] 300 mg PO Q12H #20 cap Transmission Status: Pending to [id number] Primary Care Physician: Marv Rojas III, MD [Primary Care Provider] - Please follow up with your Primary Care Physician in: 1 week. Test Results: Test results from this visit will be discussed in further detail at your follow- up appointment, if applicable.
--- NOTE | 2019-04-16 10:46 | DS.PCM_ITS ---
Discharge Date and Diagnosis Date of Admission: 04/12/19 Date of Discharge: 04/16/19 - Primary Discharge Diagnosis #1 E. coli acute cystitis/sepsis. #2 E. coli bacteremia. #3 urinary retention/benign prostatic hypertrophy. - Secondary Discharge Diagnosis Chronic Problems (Last Updated 04/13/19 @ 08:39 by Lenny Ring MD) Valvular heart disease (Chronic) Presence of permanent cardiac pacemaker (Chronic) Mobitz (type) II atrioventricular block (Chronic) PPM placement Peripheral vascular disease (Chronic) endarterectomy 09/27/2006 Atherosclerosis of [place] coronary artery of [place] heart without angina pectoris (Chronic) PTCA of RCA 1998; CABG with DINERO to LAD, SVG to RCA 09/27/2006; Hypertension (Chronic) GERD (gastroesophageal reflux disease) (Chronic) Hyperlipidemia (Chronic) Hospital Course and Treatment Imaging Results: Clinical Impression(s) from Imaging Studies Chest X-Ray 04/12/19 21:45 IMPRESSION: Mild right basilar interstitial prominence. Electronically Signed: Aashish Reyes DO at 21:58 EDT Tel [phone], Service support , Operations: None Procedures: None Summary of Care Provided: Patient seen and examined on the day of discharge and appeared to be stable to be discharged home. He denies any more complaints, has been able to urinate w ithout difficulties. He has been afebrile for more than 48 hours, other vital signs are stable. The patient is a 79 year old M admitted because of fever and weakness and he was found to have sepsis secondary to E. coli acute cystitis and that was complicated by E. coli bacteremia. Patient was treated with IV Rocephin and IV fluids. Patient did have sepsis based on fever, tachycardia, leukocytosis. His lactic acid was normal. Urine culture revealed presumptive E. coli that was pansensitive. Initial blood culture revealed E. coli and this is attributed to urinary tract infection. With above-mentioned treatment, patient symptoms improved and he remained afebrile for more than 48 hours. His white blood cell count returned back to normal. Repeat blood cultures showed no growth in 48 hours. Patient had mild diarrhea, C. difficile was negative. According to the patient, he has been taking Flomax at home for prostate enlargement. Patient did have urine retention during his admission that needed straight catheterization. He was started back on Flomax and he did well and he was able to urinate without difficulties. Patient discharged home in a stable medical condition, discharged on Omnicef 300 mg p.o. twice daily for more than 10 days of treatment to complete total of 2 weeks of treatment for E. coli bacteremia, discharged on Flomax daily, maintained on previous home medications without any changes, recommended follow-up with PCP in 1 week. - Physical Exam General: Alert, Oriented x3, Cooperative, No apparent distress HEENT: Atraumatic, PERRLA, EOMI, Normocephalic Oral: Moist Mucosa, No Gingival or Mucosal Lesions/ Ulcerations Neck: Supple, No JVD, Negative Carotid Bruits, Trachea Midline, Thyroid Normal Size and Texture Lungs: Clear to auscultation, Normal air movement, No rhonchi, No wheeze, No rales, Diminished Cardiovascular: Regular rate, Regular Rhythm, Normal S1, Normal S2, PMI Normal Abdomen: Bowel Sounds Present, Soft, Non Tender, Non-Distended, No Hepato- splenomegaly Extremities: No clubbing, No cyanosis, No edema Skin: No rashes, No breakdown Lymphatic: No Cervical, Supraclavicular, or Inguinal Adenopathy Neurological: Cranial nerves II-XII grossly intact, Neuro grossly intact Vital Signs Temp Pulse Resp BP Pulse Ox 98.7 F 76 16 130/75 H 95 04/16/19 08:12 04/16/19 08:12 04/16/19 08:12 04/16/19 08:12 04/16/19 08:12 Oxygen Flow Rate (L/min) 2 Oxygen Delivery Method Room Air Weight: 170 lb 10.205 oz Body Mass Index (BMI) 25.2 Intake and Output for Last 24 Hours 04/14/19 04/15/19 04/16/19 23:59 23:59 23:59 Intake Total 3682 / 3682 2212 / 2212 Output Total 1825 / 1825 2850 / 2850 1100 / 1100 Balance 1857 / 1857 -638 / -638 -1100 / -1100 Microbiology Past 72 Hours 04/14/19 08:51 Blood Culture - Preliminary Blood Culture (Wb) - Anticubital Right No growth in 48 hours. 04/14/19 08:46 Blood Culture - Preliminary Blood Culture (Wb) - Right Hand No growth in 48 hours. 04/15/19 13:55 C. difficile DNA Amplification - Final Stool 04/12/19 22:43 Blood Culture - Preliminary Blood Culture (Wb) - Right Hand Escherichia coli 04/12/19 20:55 Blood Culture - Preliminary Blood Culture (Wb) - Anticubital Right No growth in 48 hours. 04/12/19 22:30 Urine Culture - Final Urine, Clean Catch Presumptive E. coli POC Glucose 04/12/19 20:43 POC Glucose 130 H Discharge Activity: Return to Normal Activity Weight Bearing Status: Weight bearing as tolerated Call your doctor if you observe: Fever of 101 or Higher, Shortness of breath, Dizziness, Fainting spells, Chest pain, Increased palpitations (irregular heartbeat), Uncontrolled pain Home Medications: Medications to take at Discharge Aspirin [Aspirin, Baby] 81 mg PO DAILY@0800 11/10/14 Nitroglycerin (INPATIENT USE) [Nitrostat] 0.4 mg SUBLINGUAL Q5M PRN 01/03/17 lisinopril 2.5 mg tablet 5 mg PO DAILY tab 04/18/18 Omeprazole [Prilosec] 20 mg PO DAILY 04/13/19 Rosuvastatin Calcium [Crestor] 40 mg PO DAILY 04/13/19 Cefdinir [Omnicef [equiv]] 300 mg PO Q12H #20 cap 04/16/19 Tamsulosin HCl [Flomax] 0.4 mg PO DAILY@1730 #90 cap 04/16/19 Following Prescrptions Were Given to Patient: Tamsulosin HCl [Flomax] 0.4 mg PO DAILY@1730 #90 cap Transmission Status: Received by [id number] Cefdinir [Omnicef [equiv]] 300 mg PO Q12H #20 cap Transmission Status: Received by [id number] Primary Care Physician: Marv Rojas III, MD [Primary Care Provider] - Please follow up with your Primary Care Physician in: 1 week. Please Follow Up With: Dr Marv Rojas Disposition: Home Minutes spent on discharge:: 32 Patient Condition:: Stable Medical Necessity - Tobacco Use Smoking Status: Never smoker Tobacco Use: Non-smoker Meaningful Use Info Meaningful Use Diagnoses (Choose all that apply): None applicable Code Visit Inpatient E&M: 19115 Disch Hosp
--- NOTE | 2019-04-17 14:03 | CASEMGMT ---
RAUL CM DC PHONE CALL DC DATE: 04/16/19 DC Disposition: Home Diagnosis on Discharge: E.Coli cystitis/sepsis LACE/STRATA: 06/21 Attempted call to home phone. No answer, and machine did not have name identifier. Ibis MORAN RN ACM
== END 2019-04-16 10:02 | disposition home or self-care (01) | DRG 872 ==
LOC: ED 21:09 → PCU 23:44
PROVIDERS: Admitting Provider Family Medicine; Emergency Provider Emergency Medicine; Family Provider Family Medicine; PCP Family Medicine; Visit Provider Hospitalist
DX: A41.51 Sepsis due to Escherichia coli [E. coli] (principal); N30.00 Acute cystitis without hematuria; I25.10 Atherosclerotic heart disease of native coronary artery without angina pectoris; K21.9 Gastro-esophageal reflux disease without esophagitis; I10 Essential (primary) hypertension; I73.9 Peripheral vascular disease, unspecified; E78.5 Hyperlipidemia, unspecified; N40.1 Benign prostatic hyperplasia with lower urinary tract symptoms; R33.8 Other retention of urine; I44.1 Atrioventricular block, second degree; Z95.0 Presence of cardiac pacemaker; Z95.5 Presence of coronary angioplasty implant and graft; Z95.1 Presence of aortocoronary bypass graft; Z79.82 Long term (current) use of aspirin
CPT/HCPCS: 36415; 71046; 80048; 80053; 81001; 82962; 83605; 85025; 85610; 85730; 87040; 87077; 87086; 87088; 87186; 87493; 94760; 97161; 97166; 99285; J7030; A4216; J0696; J2405

== ENCOUNTER → 2019-06-18 17:19 | Outpatient (CLI) | payer MEDICARE, OTHER, SELFPAY ==
[2019-04-19 08:38] VITALS: BMI 24.0
== END ==
PROVIDERS: Family Provider Family Medicine; PCP Family Medicine
DX: R82.998 Other abnormal findings in urine (principal)
CPT/HCPCS: 87086; 87088; 87186

== ENCOUNTER → 2019-07-16 09:06 | Outpatient (CLI) | payer MEDICARE, OTHER, SELFPAY ==
[2019-04-19 08:38] VITALS: BMI 24.0
[2019-07-16 11:19] LABS: PSA,Total- Diagnostic 3.01 ng/mL (0.0-4.0)
== END ==
PROVIDERS: Family Provider Family Medicine; PCP Family Medicine; Referring Provider Nurse Practitioner Adult Health; Visit Provider Nurse Practitioner Adult Health
DX: R97.20 Elevated prostate specific antigen [PSA] (principal)
CPT/HCPCS: 36415; 84153

== ENCOUNTER → 2020-01-22 08:36 | Outpatient (CLI) | payer MEDICARE, OTHER, SELFPAY ==
[2019-04-19 08:38] VITALS: BMI 24.0
[2020-01-22 10:13] LABS: PSA,Total- Diagnostic 2.82 ng/mL (0.0-4.0)
== END ==
PROVIDERS: PCP Family Medicine; Referring Provider Nurse Practitioner Adult Health; Visit Provider Nurse Practitioner Adult Health
DX: N40.3 Nodular prostate with lower urinary tract symptoms (principal)
CPT/HCPCS: 36415; 84153

== ENCOUNTER → 2022-06-02 | Outpatient (CLI) | payer MEDICARE, OTHER, SELFPAY ==
[2022-06-02 10:31] LABS: AST(SGOT) 20 U/L (15-37); Alanine Aminotransfer ALT/SGPT 25 U/L (16-61); Albumin, Serum 3.8 g/dL (3.2-5.0); Alkaline Phosphatase 50 U/L (45-117); Bilirubin, Direct 0.17 mg/dL (0.00-0.30); Cholesterol 126 mg/dL (200); Globulin 3.6 g/dL (2.2-4.2); High Density Lipoprotein 47 mg/dL; Protein, Total 7.4 g/dL (6.4-8.2); Triglycerides 75 mg/dL; Very Low Density Lipoprotein 15 mg/dL (5-40)
== END | disposition home or self-care (01) ==
PROVIDERS: PCP Family Medicine; Referring Provider Internal Medicine Cardiovascular Disease; Visit Provider Internal Medicine Cardiovascular Disease
DX: E78.00 Pure hypercholesterolemia, unspecified (principal)
CPT/HCPCS: 36415; 80061; 80076

== ENCOUNTER → 2023-10-05 | Outpatient (CLI) | payer MEDICARE, OTHER, SELFPAY ==
--- OUTSIDE RECORDS SUMMARY | 2023-10-05 06:31 | XMS RPT_ITS | CCD ---
Author Name Unknown Address [address] [place] [address] Organization [facility] Care Team Providers Care Machine Shop Lead Man Name Role Phone RAUL Fitzpatrick, Ksenia Rosenberg Unavailable Unavailable Jocelin Ruiz Unavailable Jocelin Ruiz Unavailable RAUL Fitzpatrick, Ksenia Rosenberg Unavailable Unavailable RAUL Fitzpatrick, Ksenia Rosenberg Unavailable Unavailable YOLANDA SOTO Unavailable Unavailable CEBUL III, CAROLE A Unavailable Unavailable RAUL Fitzpatrick, Ksenia Rosenberg Unavailable Unavailable RAUL Fitzpatrick, Ksenia Rosenberg Unavailable Unavailable RAUL Fitzpatrick, Ksenia Rosenberg Unavailable Unavailable Rufino Grimaldo Jr. Unavailable Terra Valdez Unavailable Natali Mcguire MD Primary Care Provider Rufino Grimaldo Jr. Unavailable Terra Valdez MD Unavailable [phone] Natali Mcguire MD Primary Care Provider [phone] NATALI MCGUIRE Primary Care Unavailable NATALI MCGUIRE Attending Unavailable NATALI MCGUIRE Primary Care Unavailable NATALI MCGUIRE Primary Care Unavailable NATALI MCGUIRE Referring Unavailable Allergies Allergy Classification Reported Allergen(s) Allergy Type Date of Onset Reaction(s) Facility (5 sources) NKDA drug allergy 05-22-2013 [facility] [employer] [facility] Work Phone: (5 sources) NKA drug allergy 05-22-2013 [facility] Work Phone: Medications Current Medications Medication Drug Class(es) Dates Sig (Normalized) Sig (Original) amoxicillin 875 mg oral tablet (17 sources) Penicillin-class Antibacterial Start: 08-17-2023 End: 08-24-2023 take 1 tablet by mouth twice daily amoxicillin (AMOXIL) 875 mg tablet Indications: Other acute nonsuppurative otitis media of left ear, recurrence not specified Take 1 tablet by mouth two times a day for 7 days. 14 tablet 0 08/17/2023 08/24/2023 Active Completed/Discontinued Medications Medication Drug Class(es) Dates Sig (Normalized) Sig (Original) aspirin 81 mg oral tablet (20 sources) Nonsteroidal Anti-inflammatory Drug Start: 01-15-2011 take 1 tablet by mouth once daily ASPIRIN 81 MG TABS One tablet by mouth daily ASPIRIN [id number] Brianna Ames Problems Active Problems Problem Classification Problem Date Documented Date Episodic/Chronic Cardiac dysrhythmias (8 sources) Sinus bradycardia; Translations: [Bradycardia, unspecified] Onset: 12-10-2016 12-10-2016 Chronic Conduction disorders (20 sources) Presence of cardiac pacemaker; Translations: [Atrioventricular block, first degree] Onset: 12-29-2016 01-11-2017 Chronic Coronary atherosclerosis and other heart disease (20 sources) 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; Translations: [Coronary arteriosclerosis] Onset: 01-15-2011 Resolved: 06-17-2015 06-16-2016 Chronic Disorders of lipid metabolism (20 sources) Hyperlipidemia; Translations: [Mixed hyperlipidemia] Onset: 05-25-2005 01-15-2011 Chronic Esophageal disorders (13 sources) Gastroesophageal reflux disease without esophagitis; Translations: [Gastro-esophageal reflux disease without esophagitis] Onset: 05-25-2005 07-01-2021 Chronic Essential hypertension (20 sources) Hypertensive disorder; Translations: [Essential hypertension] Onset: 08-28-2008 01-15-2011 Chronic Glaucoma (10 sources) 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; Translations: [Preglaucoma, unspecified, right eye] Onset: 07-01-2021 07-01-2021 Chronic Heart valve disorders (16 sources) Pulmonic valve regurgitation; Translations: [Mitral valve disorder] Onset: 01-15-2011 06-16-2016 Chronic Hyperplasia of prostate (13 sources) Benign prostatic hyperplasia; Translations: [Benign prostatic hyperplasia without lower urinary tract symptoms] Onset: 08-23-2005 Chronic Immunizations and screening for infectious disease (1 source) Vaccination needed; Translations: [Encounter for immunization] Episodic Other circulatory disease (8 sources) Disorder of carotid artery; Translations: [Occlusion and stenosis of unspecified carotid artery] Onset: 05-22-2013 05-22-2013 Chronic Other connective tissue disease (1 source) Unspecified disorder of synovium and tendon, left shoulder; Translations: [Unspecified disorder of synovium and tendon, left shoulder] Onset: 03-20-2018 Episodic Other injuries and conditions due to external causes (2 sources) Contusion; Translations: [Other injury of unspecified body region, initial encounter] Episodic Other skin disorders (2 sources) Disorder of left upper extremity; Translations: [Localized swelling, mass and lump, left upper limb] Episodic Other upper respiratory disease (11 sources) Allergic rhinitis; Translations: [Allergic rhinitis, unspecified] Onset: 08-23-2005 07-01-2021 Chronic Unclassified (5 sources) Placement of stent in coronary artery ; Translations: [Presence of coronary angioplasty implant and graft] Onset: 01-15-2011 06-16-2016 Unclassified (3 sources) Long-term drug therapy; Translations: [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] Onset: 01-15-2011 01-15-2011 Past or Other Problems Problem Classification Problem Date Documented Da te Episodic/Chronic Administrative/social admission (12 sources) Advance directive discussed with patient; Translations: [Other specified counseling] Onset: 01-01-2022 Episodic Coronary atherosclerosis and other heart disease (19 sources) Coronary angioplasty status; Translations: [Presence of aortocoronary bypass graft] Onset: 01-15-2011 01-15-2011 Episodic Diabetes mellitus without complication (14 sources) Hyperglycemia; Translations: [Hyperglycemia, unspecified] Onset: 07-01-2021 Episodic Inflammatory conditions of male genital organs (8 sources) Acute prostatitis; Translations: [Acute prostatitis] Onset: 11-18-2014 11-18-2014 Episodic Other aftercare (6 sources) Other usp (current) drug therapy; Translations: [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] Onset: 01-15-2011 01-15-2011 Episodic Other aftercare (11 sources) Patient encounter status; Translations: [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] Onset: 07-01-2021 07-01-2021 Episodic Other circulatory disease (5 sources) History of myocardial infarction; Translations: [Old myocardial infarction] Onset: 01-15-2011 01-15-2011 Episodic Other connective tissue disease (10 sources) Nontraumatic complete rupture of rotator cuff of left shoulder; Translations: [Complete rotator cuff tear or rupture of left shoulder, not specified as traumatic] Onset: 07-01-2021 07-01-2021 Episodic Other liver diseases (16 sources) Abnormal results of liver function studies; Translations: [Abnormal results of liver function studies] Onset: 01-15-2011 Resolved: 06-17-2015 01-15-2011 Episodic Other non-epithelial cancer of skin (10 sources) Malignant basal cell neoplasm of skin; Translations: [Basal cell carcinoma of skin, unspecified] Onset: 11-09-2017 07-01-2021 Episodic Other screening for suspected conditions (not mental disorders or infectious disease) (10 sources) Raised prostate specific antigen; Translations: [Elevated prostate specific antigen [PSA]] Onset: 04-26-2019 07-01-2021 Episodic Residual codes; unclassified (11 sources) Active living will ; Translations: [Other specified health status] Onset: 01-01-2022 Episodic Syncope (16 sources) Syncope and collapse; Translations: [Syncope and collapse] Onset: 01-15-2011 Resolved: 06-17-2015 01-15-2011 Episodic Results Test Name Value Interpretation Reference Range Facil ity Vital Signs Date Time Vital Sign Value Performing Clinician Bailee rae 01-19-2023 10:19-0400 Diastolic blood pressure 82 mm[Hg] Natali Mcguire MD Work Phone: [facility] 01-19-2023 10:19-0400 Systolic blood pressure 134 mm[Hg] Natali Mcguire MD Work Phone: [facility] 01-19-2023 09:55-0400 Body height 171.5 cm Natali Mcguire MD Work Phone: [facility] 01-19-2023 09:55-0400 Body weight 78.93 kg Natali Mcguire MD Work Phone: [facility] 01-19-2023 09:55-0400 Heart rate 64 /min Natali Mcguire MD Work Phone: [facility] 01-19-2023 09:55-0400 Respiratory rate 16 /min Natali Mcguire MD Work Phone: [facility] 02-06-2022 12:18-0400 Body temperature 96.3 [degF] Lizbeth Thakkar APRN.EXCEPTIONAL STUDENT EDUCATION AIDE Work Phone: [facility] 02-06-2022 12:18-0400 Body weight 79.2 kg Lizbeth Thakkar APRN.EXCEPTIONAL STUDENT EDUCATION AIDE Work Phone: [facility] 02-06-2022 12:18-0400 Diastolic blood pressure 86 mm[Hg] Lizbeth Thakkar APRN.EXCEPTIONAL STUDENT EDUCATION AIDE Work Phone: [facility] 02-06-2022 12:18-0400 Heart rate 62 /min Lizbeth Thakkar APRN.EXCEPTIONAL STUDENT EDUCATION AIDE Work Phone: [facility] 02-06-2022 12:18-0400 Respiratory rate 21 /min Lizbeth Thakkar APRN.EXCEPTIONAL STUDENT EDUCATION AIDE Work Phone: [facility] 02-06-2022 12:18-0400 SaO2% (BldA) [Mass fraction] 98 % Lizbeth Thakkar APRN.EXCEPTIONAL STUDENT EDUCATION AIDE Work Phone: [facility] 02-06-2022 12:18-0400 Systolic blood pressure 140 mm[Hg] Lizbeth Thakkar APRN.EXCEPTIONAL STUDENT EDUCATION AIDE Work Phone: [facility] 02-01-2022 09:43-0400 Diastolic blood pressure 76 mm[Hg] Mi Nurse Work Phone: [facility] 02-01-2022 09:43-0400 Heart rate 60 /min Mi Nurse Work Phone: [facility] 02-01-2022 09:43-0400 Systolic blood pressure 122 mm[Hg] Mi Nurse Work Phone: [facility] 01-01-2022 09:08-0400 Body height 171.5 cm Natali Mcguire MD Work Phone: [facility] 01-01-2022 09:08-0400 Body weight 78.02 kg Natali Mcguire MD Work Phone: [facility] 01-01-2022 09:08-0400 Diastolic blood pressure 74 mm[Hg] Natali Mcguire MD Work Phone: [facility] 01-01-2022 09:08-0400 Heart rate 64 /min Natali Mcguire MD Work Phone: [facility] 01-01-2022 09:08-0400 Respiratory rate 16 /min Natali Mcguire MD Work Phone: [facility] 01-01-2022 09:08-0400 Systolic blood pressure 112 mm[Hg] Natali Mcguire MD Work Phone: [facility] 03-11-2017 08:36-0400 BMI (Body Mass Index) 24.1 kg/m2 [facility] Work Phone: 03-11-2017 08:36-0400 BP Diastolic 86 mm[Hg] Jocelin Ruiz [facility] Work Phone: 03-11-2017 08:36-0400 BP Systolic 152 mm[Hg] Jocelin Ruiz [facility] Work Phone: 03-11-2017 08:36-0400 Height 177.8 cm Jocelin Ruiz [facility] Work Phone: 03-11-2017 08:36-0400 Pulse (Heart Rate) 78 /min Jocelin Ruiz [facility] Work Phone: 03-11-2017 08:36-0400 Respiratory Rate 18 /min Jocelin Ruiz [facility] Work Phone: 03-11-2017 08:36-0400 Weight 76.2 kg Jocelin Ruiz [facility] Work Phone: 12-29-2016 15:12-0400 BMI (Body Mass Index) 24.68 kg/m2 RAUL [facility] Work Phone: 12-29-2016 15:12-0400 Body weight 78.02 kg Ksenia Fitzpatrick RN [facility] Work Phone: 12-29-2016 15:12-0400 BP Diastolic 60 mm[Hg] Ksenia Fitzpatrick RN [facility] Work Phone: 12-29-2016 15:12-0400 BP Systolic 140 mm[Hg] Ksenia Fitzpatrick RN [facility] Work Phone: 12-29-2016 15:12-0400 Height 177.8 cm Ksenia Fitzpatrick RN [facility] Work Phone: 12-29-2016 15:12-0400 Pulse (Heart Rate) 60 /min Ksenia Fitzpatrick RN [facility] Work Phone: 12-29-2016 15:12-0400 Respiratory Rate 20 /min [facility] Work Phone: 12-29-2016 15:12-0400 Weight 78.02 kg Ksenia Fitzpatrick RN [facility] Work Phone: 12-10-2016 10:20-0400 Heart rate 41 /min Ksenia Fitzpatrick RN [facility] Work Phone: 06-17-2016 08:38-0400 BSA (Body Surface Area) 1.95 m2 Ksenia Fitzpatrick RN [facility] Work Phone: 11-18-2014 12:40-0500 Body Temperature 97.1 [degF] Ksenia Fitzpatrick RN [facility] Work Phone: 11-18-2014 12:40-0500 Pulse Oximetry 97 % Ksenia Fitzpatrick RN [facility] Work Phone: 05-01-2012 08:42-0400 Heart rate 426 ms Ksenia Fitzpatrick RN [facility] Work Phone: Encounters Encounter Date Encounter Type Care Provider Facility Start: 08-17-2023 Telephone encounter Loly Mina APRN.CNP Work Phone: [facility] Procedures Date Procedure Procedure Detail Performing Clinician Start: 02-08-2022 Dup-scan xtr veins unilateral/limited study Lizbeth Thakkar APRN.EXCEPTIONAL STUDENT EDUCATION AIDE Work Phone: Start: 11-09-2017 History of coronary artery bypass grafting S/P CABG x 2 Natali Mcguire MD Work Phone: Start: 06-03-2017 End: 06-06-2017 Program eval implantable in persn dual ld pacer Bill Asif MD Start: 06-03-2017 End: 06-06-2017 Pm device progr eval, dual Bill Asif MD Start: 03-11-2017 End: 04-12-2017 Follow Up Appt 6 months Shakira Hatfield Start: 03-11-2017 End: 04-12-2017 ZOË Asif MD Start: 03-11-2017 End: 04-12-2017 Follow Up Appt 6 months Shakira Hatfield Start: 03-11-2017 End: 04-12-2017 ZOË Asif MD Start: 02-18-2017 End: 04-12-2017 Follow Up Appt 3 months Radha jean PA-C Work Phone: Start: 02-18-2017 End: 04-12-2017 Pacer Clinic Radha Spaulding PA-C Work Phone: Start: 02-18-2017 End: 02-18-2017 Program eval implantable in persn dual ld pacer Radha Spaulding PA-C Work Phone: Start: 02-18-2017 End: 04-12-2017 Follow Up Appt 3 months Radha jean PA-C Work Phone: Start: 02-18-2017 End: 04-12-2017 Pacer Clinic Radha Spaulding PA-C Work Phone: Start: 02-18-2017 End: 02-18-2017 Pm device progr eval, dual Radha Spaulding PA-C Work Phone: Start: 01-11-2017 End: 04-12-2017 Follow Up Appt 1 month Bill Asif MD Start: 01-11-2017 End: 01-11-2017 Nurse, Teaching, Wound Check (no charge) Bill Asif MD Start: 01-11-2017 End: 04-12-2017 Pacer Clinic Bill Asif MD Start: 01-11-2017 End: 04-12-2017 Follow Up Appt 1 month Bill Asif MD Start: 01-11-2017 End: 01-11-2017 Nurse, Teaching, Wound Check (no charge) Bill Asif MD Start: 01-11-2017 End: 04-12-2017 Pacer Clinic Bill Asif MD Start: 12-29-2016 End: 12-29-2016 Urinalysis Ksenia Fitzpatrick RN Start: 12-29-2016 End: 12-29-2016 Documentation of current medications Ksenia Fitzpatrick RN Start: 12-29-2016 End: 12-29-2016 *BMP Bill Asif MD Start: 12-29-2016 End: 12-29-2016 *UA - Urinalysis w/o Micro Bill Asif MD Start: 12-29-2016 End: 12-29-2016 CBC W Auto Differential panel - Blood Bill Asif MD Start: 12-29-2016 End: 04-12-2017 Chest x-ray Bill Asif MD Start: 12-29-2016 End: 04-12-2017 Ecg routine ecg w/least 12 lds w/i&r Bill Asif MD Start: 12-29-2016 End: 04-12-2017 Follow Up Appt 3 months Shakira Hatfield Start: 12-29-2016 End: 12-29-2016 INR in Platelet poor plasma by Coagulation assay Bill Asif MD Start: 12-29-2016 End: 04-12-2017 MMShakira Aisf MD Start: 12-29-2016 End: 04-12-2017 Pacemaker Primary Insertion Bill Asfi MD Start: 12-29-2016 End: 12-29-2016 *BMP Bill Asif MD Start: 12-29-2016 End: 12-29-2016 *UA - Urinalysis w/o Micro Bill Asif MD Start: 12-29-2016 End: 12-29-2016 CBC W Auto Differential panel - Blood Bill Asif MD Start: 12-29-2016 End: 04-12-2017 Chest x-ray Bill Asif MD Start: 12-29-2016 End: 12-29-2016 Coagulation factor induced.INR assay in platelet poor plasma Bill Asif MD Start: 12-29-2016 End: 04-12-2017 Electrocardiogram, complete Bill Asif MD Start: 12-29-2016 End: 04-12-2017 Follow Up Appt 3 months Shakira Hatfield Start: 12-29-2016 End: 04-12-2017 MMM Bill Asif MD Start: 12-29-2016 End: 04-12-2017 Pacemaker Primary Insertion Bill Asif MD Start: 12-10-2016 End: 12-22-2016 24 hour holter monitor Radha irwin PA-C Work Phone: Start: 12-10-2016 End: 12-10-2016 CIRILO Spaulding PA-C Work Phone: Start: 12-10-2016 End: 12-10-2016 Ecg routine ecg w/least 12 lds w/i&r Radha Spaulding PA-C Work Phone: Start: 12-10-2016 End: 12-10-2016 Follow Up Appt 3 months Radha jean PA-C Work Phone: Start: 12-10-2016 End: 12-22-2016 24 hour holter monitor Radha irwin PA-C Work Phone: Start: 12-10-2016 End: 12-10-2016 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 Radha Spaulding PA-C Work Phone: Start: 12-10-2016 End: 12-10-2016 Electrocardiogram, complete Radha Spaulding PA-C Work Phone: Start: 12-10-2016 End: 12-10-2016 Follow Up Appt 3 months Radha jean PA-C Work Phone: Start: 08-20-2016 End: 08-24-2016 *Hepatic Function Panel Shakira Hatfield Start: 08-20-2016 End: 08-24-2016 Lipid 1996 panel - Serum or Plasma Bill Asif MD Start: 08-20-2016 End: 08-24-2016 *Hepatic Function Panel Shakira Hatfield Start: 08-20-2016 End: 08-24-2016 Lipid panel [AGGREGATE] Shakira Hatfield Start: 06-17-2016 End: 06-17-2016 Follow Up Appt 6 months Shakira Hatfield Start: 06-17-2016 End: 06-17-2016 MMM Bill Asif MD Start: 06-17-2016 End: 06-17-2016 Follow Up Appt 6 months Shakira Hatfield Start: 06-17-2016 End: 06-17-2016 MMM Bill Asif MD Start: 01-15-2016 End: 02-19-2016 *Hepatic Function Panel Shakira Hatfield Start: 01-15-2016 End: 02-19-2016 Lipid 1996 panel - Serum or Plasma Bill Asif MD Start: 01-15-2016 End: 02-19-2016 *Hepatic Function Panel Shakira Hatfield Start: 01-15-2016 End: 02-19-2016 Lipid panel [AGGREGATE] Shakira Hatfield Start: 07-16-2015 End: 07-16-2015 *Hepatic Function Panel Shakira Hatfield Start: 07-16-2015 End: 07-16-2015 Lipid 1996 panel - Serum or Plasma Bill Asif MD Start: 07-16-2015 End: 07-16-2015 *Hepatic Function Panel Shakira Hatfield Start: 07-16-2015 End: 07-16-2015 Lipid panel [AGGREGATE] Shakira Hatfield Start: 06-17-2015 End: 06-17-2015 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 Bill Asif MD Start: 06-17-2015 End: 06-18-2015 Documentation of current medications Bill Asif MD Start: 06-17-2015 End: 06-17-2015 Follow Up Appt 1 year Bill Asif MD Start: 06-17-2015 End: 06-17-2015 CIRILO Asif MD Start: 06-17-2015 End: 06-18-2015 Documentation of current medications Bill Asif MD Start: 06-17-2015 End: 06-17-2015 Follow Up Appt 1 year Bill Asif MD Start: 11-18-2014 End: 12-02-2014 Bacteria identified in Urine by Culture Terra Valdez MD Start: 11-18-2014 End: 11-19-2014 Documentation of current medications Terra Valdez MD Start: 11-18-2014 End: 11-19-2014 Documentation of current medications Terra Valdez MD Start: 11-18-2014 End: 12-02-2014 Urine culture, bacteria Terra Flores Start: 08-19-2014 End: 01-13-2015 *Hepatic Function Panel Shakira Hatfield Start: 08-19-2014 End: 01-13-2015 Lipid 1996 panel - Serum or Plasma Bill Asif MD Start: 08-19-2014 End: 01-13-2015 *Hepatic Function Panel Shakira Hatfield Start: 08-19-2014 End: 01-13-2015 Lipid panel [AGGREGATE] Shakira Hatfield Start: 06-11-2014 End: 06-11-2014 CIRILO Asif MD Start: 06-11-2014 End: 06-11-2014 Follow Up Appt 1 year Bill Asif MD Start: 06-11-2014 End: 06-11-2014 CIRILO Asif MD Start: 06-11-2014 End: 06-11-2014 Follow Up Appt 1 year Bill Asif MD Start: 02-17-2014 End: 03-15-2014 *Hepatic Function Panel Shakira Hatfield Start: 02-17-2014 End: 03-15-2014 Lipid 1996 panel - Serum or Plasma Bill Asif MD Start: 02-17-2014 End: 03-15-2014 *Hepatic Function Panel Shakira Hatfield Start: 02-17-2014 End: 03-15-2014 Lipid panel [AGGREGATE] Shakira Hatfield Start: 11-19-2013 End: 11-19-2013 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 Radha Spaulding PA-C Work Phone: Start: 11-19-2013 End: 11-19-2013 Follow Up Appt 6 months Radha jean PA-C Work Phone: Start: 11-19-2013 End: 11-19-2013 CIRILO Spaulding PA-C Work Phone: Start: 11-19-2013 End: 11-19-2013 Follow Up Appt 6 months Radha jean PA-C Work Phone: Start: 07-20-2013 End: 09-17-2013 *Hepatic Function Panel Shakira Hatfield Start: 07-20-2013 End: 09-17-2013 Lipid 1996 panel - Serum or Plasma Bill Asif MD Start: 07-20-2013 End: 09-17-2013 *Hepatic Function Panel Shakira Hatfield Start: 07-20-2013 End: 09-17-2013 Lipid panel [AGGREGATE] Shakira Hatfield Start: 05-22-2013 End: 11-06-2013 Carotid duplex Bill Asif MD Start: 05-22-2013 End: 05-22-2013 Follow Up Appt 6 months Shakira Hatfield Start: 05-22-2013 End: 05-22-2013 ZOË Asif MD Start: 05-22-2013 End: 11-06-2013 Nuclear stress test -exercise Bill Asif MD Start: 05-22-2013 End: 11-06-2013 Carotid duplex Bill Asif MD Start: 05-22-2013 End: 05-22-2013 Follow Up Appt 6 months Shakira Hatfield Start: 05-22-2013 End: 05-22-2013 MMShakira Asif MD Start: 05-22-2013 End: 11-06-2013 Nuclear stress test -exercise Bill Asif MD Start: 01-31-2013 End: 02-14-2013 *Hepatic Function Panel Chico Simmons MD Start: 01-31-2013 End: 02-14-2013 Lipid 1996 panel - Serum or Plasma Chico Simmons MD Start: 01-31-2013 End: 02-14-2013 *Hepatic Function Panel Chico Simmons MD Start: 01-31-2013 End: 02-14-2013 Lipid panel [AGGREGATE] Chico Simmons MD Start: 11-13-2012 End: 11-13-2012 Follow Up Appt 6 months Chico Simmons MD Start: 11-13-2012 End: 11-13-2012 Follow Up Appt 6 months Chico Simmons MD Start: 07-26-2012 End: 11-13-2012 *Hepatic Function Panel Chico Simmons MD Start: 07-26-2012 End: 11-13-2012 Lipid 1996 panel - Serum or Plasma Chico Simmons MD Start: 07-26-2012 End: 11-13-2012 *Hepatic Function Panel Chico Simmons MD Start: 07-26-2012 End: 11-13-2012 Lipid panel [AGGREGATE] Chico Simmons MD Start: 05-01-2012 End: 05-01-2012 Follow Up Appt 6 months Chico Simmons MD Start: 05-01-2012 End: 05-01-2012 Follow Up Appt 6 months Chico Simmons MD Start: 04-06-2012 End: 04-20-2012 *Hepatic Function Panel Chico Simmons MD Start: 04-06-2012 End: 04-20-2012 Lipid 1996 panel - Serum or Plasma Chico Simmons MD Start: 04-06-2012 End: 04-20-2012 *Hepatic Function Panel Chico Simmons MD Start: 04-06-2012 End: 04-20-2012 Lipid panel [AGGREGATE] Chico Simmons MD Start: 11-01-2011 End: 11-01-2011 Follow Up Appt 6 months Chico Simmons MD Start: 11-01-2011 End: 11-01-2011 Alcoholism counseling Ksenia Fitzpatrick RN Start: 11-01-2011 End: 11-01-2011 Follow Up Appt 6 months Chico Simmons MD Start: 01-15-2011 Placement of stent in coronary artery Status post cardiac stent placement Ksenia Fitzpatrick RN Start: 01-15-2011 Placement of stent in coronary artery Status post cardiac stent placement Ksenia Fitzpatrick RN Plan of Treatment Date Care Activity Detail Author Start: 11-13-2028 Urine microalbumin profile [facility] Start: 01-12-2026 DIABETES SCREEN DIABETES SCREEN [facility] Start: 01-12-2026 Diabetes Screening Diabetes Screening [facility] Start: 12-17-2024 DIABETES SCREEN DIABETES SCREEN [facility] Start: 01-13-2024 Hepatitis B surface antibody level LDL CHOLESTEROL [facility] Start: 05-20-2023 Covid-19 Vaccine ( season) Covid-19 Vaccine () [facility] Start: 05-20-2023 Influenza vaccination INFLUENZA (Season Ended) [facility] Start: 12-27-2022 End: 02-26-2023 Cobalamin (Vitamin B12) [Mass/volume] in Serum or Plasma VITAMIN B12 BLOOD Lab Routine Medication management GERD without esophagitis Expected: 12/27/2022, Expires: 02/26/2023 [facility] Work Phone: Immunizations Immunization Date Immunization Notes Care Provider Fa cili 01-01-2022 pneumococcal polysaccharide vaccine, 23 valent Natali Mcguire MD Work Phone: [facility] 09-02-2021 COVID-19 vaccine, ag e 12+ yr ([employer] - PURPLE TOP) Natali Mcguire MD Work Phone: [facility] 06-15-2021 influenza, high dose seasonal, preservative-free Natali Mcguire MD Work Phone: [facility] 06-15-2021 zoster vaccine recombinant Natali Mcguire MD Work Phone: [facility] 04-01-2021 zoster vaccine recombinant Natali Mcguire MD Work Phone: [facility] 11-26-2020 COVID-19 vaccine, fu ll dose (MODERNA) Natali Mcguire MD Work Phone: [facility] 10-30-2020 COVID-19 vaccine, fu ll dose (MODERNA) Natali Mcguire MD Work Phone: [facility] 07-01-2020 influenza, high dose seasonal, preservative-free Natali Mcguire MD Work Phone: [facility] 07-10-2019 influenza, high dose seasonal, preservative-free Natali Mcguire MD Work Phone: [facility] 11-13-2018 tetanus toxoid, redu ej diphtheria toxoid, and acellular pertussis vaccine, adsorbed Natali Mcguire MD Work Phone: [facility] 07-12-2018 influenza, high dose seasonal, preservative-free Natali Mcguire MD Work Phone: [facility] 06-13-2017 influenza, high dose seasonal, preservative-free Natali Mcguire MD Work Phone: [facility] 06-21-2016 influenza, high dose seasonal, preservative-free Natali Mcguire MD Work Phone: [facility] 06-26-2015 pneumococcal conjuga te vaccine, 13 valent Natali Mcguire MD Work Phone: [facility] 06-17-2015 influenza, high dose seasonal, preservative-free Natali Mcguire MD Work Phone: [facility] 06-19-2014 influenza, seasonal, injectable, preservative free Natali Mcguire MD Work Phone: [facility] 04-17-2012 zoster vaccine, live Natali Mcguire MD Work Phone: [facility] 05-01-2009 pneumococcal polysaccharide vaccine, 23 valent Natali Mcguire MD Work Phone: [facility] Work Phone: 07-28-2008 influenza virus vacc ine, unspecified formulation Natali Mcguire MD Work Phone: [facility] 07-25-2007 influenza virus vacc ine, unspecified formulation Natali Mcguire MD Work Phone: [facility] Work Phone: 07-18-2006 influenza virus vacc ine, unspecified formulation Natali Mcguire MD Work Phone: [facility] 05-30-2006 tetanus and diphther ia toxoids, adsorbed, preservative free, for adult use (2 Lf of tetanus toxoid and 2 Lf of diphtheria toxoid) Natali Mcguire MD Work Phone: [facility] Work Phone: 08-11-2004 pneumococcal polysaccharide vaccine, 23 valent Natali Mcguire MD Work Phone: [facility] Work Phone: Payers Date Payer Category Payer Unknown [employer] [id number] 2007-Present [phone] [address] [place] [address] Indemnity [id number] 2007 Unknown [employer] [id number] 2007-Present [phone] [address] [place] [address] Indemnity [id number] 2007 Unknown [id number] 2005 Medicare MEDICARE MEDICAR E A AND B [id number] 2005-Present [phone] [place] [address] Medicare [id number] 2005 Medicare MEDICARE MEDICAR E A AND B [id number] 2005-Present [phone] [place] [address] Medicare [id number] 2005 Medicare [id number] Social History Date Type Detail Facility Start: 11-13-2018 End: 01-19-2023 Tobacco smoking status NHIS Never smoked tobacco [facility] Work Phone: Start: 01-01-2022 End: 08-17-2023 Alcohol intake Current drinker of alcohol (finding) [facility] Start: 08-27-2020 End: 01-01-2022 Alcohol intake [facility] Work Phone: Start: 1940 Sex Assigned At Not on file [facility] Start: 12-22-2021 End: 01-01-2022 Exposure to SARS-CoV-2 (event) Not sure [facility] Start: 01-27-2022 End: 02-06-2022 Exposure to SARS-CoV-2 (event) Unable to assess [facility] Work Phone: Start: 11-13-2018 End: 01-19-2023 Tobacco use and exposure Smokeless tobacco non-user [facility] Start: 08-27-2020 End: 08-17-2023 Tobacco use panel [facility] Work Phone: Adult Depression Screening Assessment 0 [facility] Work Phone: Clinical Notes 04-20-2012 to 08-17-2023 Telephone Encounter - Loly Hurtado APRN.CNP - 08/17/2023 7:24 PM Tyler Mcguire MD - 01/19/2023 9:44 AM EDTTelephone Encounter - Kiara Hare RN - 01/13/2023 11:11 AM EDT Note Date & Type Note Facility 08-17-2023 Miscellaneous Notes I advised patient of his positive COVID status. His symptoms have been present for a week or longer per his . He can take antibiotic as prescribed. Follow up with PCP as needed. Loly Hurtado APRN.CNP documented in this encounter [facility] 08-17-2023 Note HNO ID: [id number] Author: Loly Hurtado APRN.CNP Service: ? Author Type: Nurse Practitioner Type: Progress Notes Filed: 08/17/2023 10:08 AM Note Text: Subjective HPI Chula Whitfield is a 83 year old male who presents with cough, nasal congestion, drainage, and left ear and neck pain for the past 4 days. He had a fever the first day of the illness but it has since resolved. He has been taking Nyquil at home for symptoms. His is currently ill with with URI symptoms. Review of Systems Constitutional: Negative for chills, fever and malaise/fatigue. HENT: Positive for congestion, ear pain and hearing loss. Negative for sore throat. Respiratory: Positive for cough. Negative for shortness of breath. Cardiovascular: Negative for chest pain. Musculoskeletal: Positive for neck pain. Neurological: Negative for dizziness and headaches. BP 138/82 Pulse 71 Temp 36.6 ?C (97.8 ?F) (Tympanic) Resp 16 Wt 77.9 kg (171 lb 12.8 oz) SpO2 97% BMI 26.51 kg/m? PAST MEDICAL HISTORY Diagnosis Date Advance directive discussed with patient 01/01/2022 Discussed 12/2021 ASHD (arteriosclerotic heart disease) 11/09/2017 OR 2007 Atherosclerosis of coronary artery of [place] heart without angina pectoris 06/26/2015 Benign prostatic hyperplasia with urinary frequency 08/23/2005 Dr. 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 07/01/2021 History of OR (myocardial infarction) 1998 Hyperlipidemia, mixed 05/25/[address] 01/01/2022 DPA: Viviane () Medicare annual wellness visit, subsequent 01/01/2022 Medicare Part B: 01/17/2005 Last Done: 01/01/2022 Nontraumatic complete tear of left rotator cuff 07/01/2021 Never had surgery S/P CABG x 2 11/09/2017 Skin cancer, basal cell 11/09/2017 10/06/17, R side of neck 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 Leslie FAGAN SURG CHOLECYSTECTOMY W/CHOLANGIOGRAPHY 07/29/08 [facility] SURGERY STAGE 1- UP 5 SPECIMENS 12/17/13 SCC left forehead PACEMAKER 01/03/2017 PAST SURGICAL HISTORY OF 2006 open heart surgery XCAPSL CTRC RMVL INSJ IO LENS PROSTH W/O ECP 04/11/13 Cataract Extraction with PC IOL per Dr. Doan ALLERGIES Patient has no known allergies. MEDICATIONS montelukast (SINGULAIR) 10 mg tablet Take 1 tablet by mouth daily at bedtime. beta-carotene,A,-vits C,E/mins (OCUVITE ORAL) Take by mouth. lisinopril (ZESTRIL, PRINIVIL) 10 mg tablet Take 0.5 tablets by mouth once daily. Per [facility] MULTIVITAMIN ORAL Take by mouth. latanoprost (XALATAN) 0.005 % ophthalmic solution tamsulosin ER (FLOMAX) 0.4 mg cap TAKE 1 CAPSULE BY MOUTH EVERY DAY AT 530PM Omeprazole Magnesium 20 mg cpDR Take by mouth once daily. docusate sodium (STOOL SOFTENER) 100 mg capsule 3 capsules once daily. nitroglycerin sublingual (NITROSTAT) 0.4 mg SL tablet Dissolve 1 tablet under the tongue as needed. DISSOLVE ON TONGUE FOR CHEST PAIN. IF NO PAIN RELIEF, CALL 911 Aspirin 81 mg Tab Take 81 mg by mouth once daily. rosuvastatin calcium(CRESTOR 40 MG TAB) Take one(1) tablet daily in the evening. amoxicillin (AMOXIL) 875 mg tablet Take 1 tablet by mouth two times a day for 7 days. benzonatate (TESSALON PERLE) 100 mg capsule Take 2 capsules by mouth three times a day as needed for up to 10 days. FAMILY HISTORY Problem Relation Age of Onset Cancer Mother Ischemic Heart Disease Paternal Uncle Social History Tobacco Use Smoking status: Never Smokeless tobacco: Never Substance Use Topics Alcohol use: Yes Alcohol/week: 2.0 standard drinks of alcohol Types: 2 Cans of Beer (12oz) per week Drug use: No Objective Physical Exam Vitals and nursing note reviewed. Constitutional: General: He is not in acute distress. Appearance: Normal appearance. He is not ill-appearing. HENT: Right Ear: Tympanic membrane, ear canal and external ear normal. Left Ear: Ear canal and external ear normal. A middle ear effusion is present. Tympanic membrane is injected. Nose: Nose normal. Mouth/Throat: Pharynx: Uvula midline. No oropharyngeal exudate or posterior oropharyngeal erythema. Cardiovascular: Rate and Rhythm: Normal rate and regular rhythm. Heart sounds: Normal heart sounds. Pulmonary: Effort: Pulmonary effort is normal. No respiratory distress. Breath sounds: Normal breath sounds. (more content not included)... [facility] 06-23-2023 Note HNO ID: [id number] Author: Georgina Ceballos LPN Service: ? Author Type: ? Type: Progress Notes Filed: 06/23/2023 1:48 PM Note Text: Scan on 06/23/2023 9:48 AM by Provider, Jose PAHerbC: Consultation - Cardiology [facility] 01-19-2023 Note HNO ID: [id number] Author: Natali Mcguire MD Service: ? Author Type: Physician Type: Progress Notes Filed: 01/20/2023 7:18 PM Note Text: Medicare Yearly Visit Medical B eligibilty date 01/17/2005 Date of last exam 01/01/2022 PAST MEDICAL HISTORY PAST MEDICAL HISTORY Diagnosis Date Advance directive discussed with patient 01/01/2022 Discussed 12/2021 Allergic rhinitis, cause unspecified 08/23/2005 ASHD (arteriosclerotic heart disease) 11/09/2017 OR 2007 Atherosclerosis of coronary artery of [place] heart without angina pectoris 06/26/2015 BPH without obstruction/lower urinary tract symptoms 08/23/2005 Cardiac pacemaker 11/09/2017 2007: Mobitz II CORONARY ATHEROSCLER UNSPEC VESSEL Dr Asif Diverticulosis of colon (without mention of hemorrhage) Elevated blood sugar 07/01/2021 Elevated PSA 04/26/2019 04/24/19: PSA 12.09 Esophageal reflux Essential hypertension 08/28/2008 GERD without esophagitis 05/25/2005 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 07/01/2021 History of OR (myocardial infarction) 1998 Hyperlipidemia Hyperlipidemia, mixed 05/25/2005 Hypertension HYPERTROPHY PROSTATE W/O OBST 08/23/2005 Medicare annual wellness visit, subsequent 01/01/2022 Medicare Part B: 01/17/2005 Last Done: 01/01/2022 Nontraumatic complete tear of left rotator cuff 07/01/2021 Never had surgery Old myocardial infarction 1998 S/P CABG x 2 11/09/2017 Shoulder pain left impingement, rotator cuff Skin cancer, basal cell 11/09/2017 10/06/17, R side of neck Squamous cell cancer of scalp and skin of neck TMJ click right PAST SURGICAL HISTORY PAST SURGICAL HISTORY Procedure Laterality Date ANGIOPLASTY 1998 stent COLONOSCOPY FLX DX W/COLLJ SPEC WHEN PFRMD 05/17/07 repeat due 2016 COLONOSCOPY FLX DX W/COLLJ SPEC WHEN PFRMD 05/31/2017 Colonoscopy CORONARY ARTERY BYP W/VEIN AND ARTERY GRAFT 4 VEIN 09/25 x4, [facility], Dr. Nelson LAP SURG CHOLECYSTECTOMY W/CHOLANGIOGRAPHY 07/29/08 [facility] SURGERY STAGE 1- UP 5 SPECIMENS 12/17/13 SCC left forehead PACEMAKER 01/03/2017 PAST SURGICAL HISTORY OF 2006 open heart surgery XCAPSL CTRC RMVL INSJ IO LENS PROSTH W/O ECP 04/11/13 Cataract Extraction with PC IOL per Dr. Doan ALLERGIES: Patient has no known allergies. Medications reviewed: Yes FAMILY HISTORY FAMILY HISTORY Problem Relation Age of Onset Cancer Mother Ischemic Heart Disease Paternal Uncle SOCIAL HISTORY: SOCIAL HISTORY Social History Tobacco Use Smoking status: Never Smoker Smokeless tobacco: Never Used Substance Use Topics Alcohol use: Yes Alcohol/week: 5.0 standard drinks Types: 2 Cans of Beer (12oz) per week Drug use: No Chula works out regularly several times per week with walking and light weights. He watches his diet for sodium, low fat and low cholesterol most of the time. List of current specialists seen: Dr. Asif (cardio) Dr. Lainez (Urologiy) Shyla Newton (Derm) End of Live Planning discussed including patients advanced directive wishes: Yes I am willing to follow Chula's advanced directives. PHQ-2 / Depression screen Depression Screening 11/09/2017 11/13/2018 01/01/2022 01/19/2023 PHQ-2 Score 0 0 0 0 Depression screening tool completed and reviewed. Based on score and interview, patient is not at risk for depression. Screening tool discussed with patient, and I recommended no further intervention at this time. Functional Ability/Safety Screen 1. Was the patient's timed Up and Go test unsteady or longer than 30 seconds? No 2. Does the patient need help with the phone, transportation, shopping,preparing meals, housework, laundry, medications or managing money? No 3. Does your home have rugs in the hallway, lack of grab bars in the bathroom, lack of handrails on the stairs or have poor lighting? No Hearing Evaluation: hard of hearing PHYSICAL EXAM BP 140/88 (BP Site: Left Arm, BP Position: Sitting, BP Cuff Size: Regular Adult) Pulse 64 Resp 16 Ht 171.5 cm (5' 7.5 ) Wt 78.9 kg (174 lb) BMI 26.85 kg/m? Alert and oriented X 3: YES Body mass index is 26.85 kg/m?. Visual acuity: seeing optho See below ASSESSMENT/PLAN: 82 year old male The following prevention plan was discussed during the office visit and provided to the patient: See below Natali Mcguire MD Chief Complaint Patient presents with: Medicare Wellness Exam HPI Chula Whitfield is a 82 year old male who presents here today for Chronic Medical Conditions. and Medicare Annual Visit. Office visit - medicare wellness Patient with Hc of CAD seing Cardio, HTN, Hyperlipidemia, GERD, allergic rhinitis, pacemaker in place, elevated PSA seeing Urology, BPH, Hx of skin cancer seeing Derm, S/P CABG Patient has been doing well for the most part. Any concerns today - noticed some drainage. Office visit - medicare wellness 12/2021 Patient with Hc of CAD seing Cardio, HTN, Hyperlipidemia, GERD, allergic rhinitis, pacemaker in place, elevated (more content not included)... [facility] 01-19-2023 History of Presen t illness Narrative Medicare Yearly Visit Medical B eligibilty date 01/17/2005 Date of last exam 01/01/2022 PAST MEDICAL HISTORY PAST MEDICAL HISTORY Diagnosis Date Advance directive discussed with patient 01/01/2022 Discussed 12/2021 Allergic rhinitis, cause unspecified 08/23/2005 ASHD (arteriosclerotic heart disease) 11/09/2017 OR 2007 Atherosclerosis of coronary artery of [place] heart without angina pectoris 06/26/2015 BPH without obstruction/lower urinary tract symptoms 08/23/2005 Cardiac pacemaker 11/09/2017 2007: Mobitz II CORONARY ATHEROSCLER UNSPEC VESSEL Dr Asif Diverticulosis of colon (without mention of hemorrhage) Elevated blood sugar 07/01/2021 Elevated PSA 04/26/2019 04/24/19: PSA 12.09 Esophageal reflux Essential hypertension 08/28/2008 GERD without esophagitis 05/25/2005 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 07/01/2021 History of OR (myocardial infarction) 1998 Hyperlipidemia Hyperlipidemia, mixed 05/25/2005 Hypertension HYPERTROPHY PROSTATE W/O OBST 08/23/2005 Medicare annual wellness visit, subsequent 01/01/2022 Medicare Part B: 01/17/2005 Last Done: 01/01/2022 Nontraumatic complete tear of left rotator cuff 07/01/2021 Never had surgery Old myocardial infarction 1998 S/P CABG x 2 11/09/2017 Shoulder pain left impingement, rotator cuff Skin cancer, basal cell 11/09/2017 10/06/17, R side of neck Squamous cell cancer of scalp and skin of neck TMJ click right PAST SURGICAL HISTORY PAST SURGICAL HISTORY Procedure Laterality Date ANGIOPLASTY 1998 stent COLONOSCOPY FLX DX W/COLLJ SPEC WHEN PFRMD 05/17/07 repeat due 2016 COLONOSCOPY FLX DX W/COLLJ SPEC WHEN PFRMD 05/31/2017 Colonoscopy CORONARY ARTERY BYP W/VEIN & ARTERY GRAFT 4 VEIN 09/25 x4, [facility], Dr. Nelson LAPS SURG CHOLECYSTECTOMY W/CHOLANGIOGRAPHY 07/29/08 [facility] SURGERY STAGE 1- UP 5 SPECIMENS 12/17/13 SCC left forehead PACEMAKER 01/03/2017 PAST SURGICAL HISTORY OF 2006 open heart surgery XCAPSL CTRC RMVL INSJ IO LENS PROSTH W/O ECP 04/11/13 Cataract Extraction with PC IOL per Dr. Doan ALLERGIES: Patient has no known allergies. Medications reviewed: Yes FAMILY HISTORY FAMILY HISTORY Problem Relation Age of Onset Cancer Mother Ischemic Heart Disease Paternal Uncle SOCIAL HISTORY: SOCIAL HISTORY Social History Tobacco Use Smoking status: Never Smoker Smokeless tobacco: Never Used Substance Use Topics Alcohol use: Yes Alcohol/week: 5.0 standard drinks Types: 2 Cans of Beer (12oz) per week Drug use: No Merle works out regularly several times per week with walking and light weights. He watches his diet for sodium, low fat and low cholesterol most of the time. List of current specialists seen: Dr. Asif (cardio) Dr. Lainez (Urologiy) Shyla Newton (Derm) End of Live Planning discussed including patients advanced directive wishes: Yes I am willing to follow Chula's advanced directives. PHQ-2 / Depression screen Depression Screening 11/09/2017 11/13/2018 01/01/2022 01/19/2023 PHQ-2 Score 0 0 0 0 Depression screening tool completed and reviewed. Based on score and interview, patient is not at risk for depression. Screening tool discussed with patient, and I recommended no further intervention at this time. Functional Ability/Safety Screen 1. Was the patient's timed Up and Go test unsteady or longer than 30 seconds? No 2. Does the patient need help with the phone, transportation, shopping,preparing meals, housework, laundry, medications or managing money? No 3. Does your home have rugs in the hallway, lack of grab bars in the bathroom, lack of handrails on the stairs or have poor lighting? No Hearing Evaluation: hard of hearing PHYSICAL EXAM BP 140/88 (BP Site: Left Arm, BP Position: Sitting, BP Cuff Size: Regular Adult) Pulse 64 Resp 16 Ht 171.5 cm (5' 7.5 ) Wt 78.9 kg (174 lb) BMI 26.85 kg/m Alert and oriented X 3: YES Body mass index is 26.85 kg/m . Visual acuity: seeing optho See below ASSESSMENT/PLAN: 82 year old male The following prevention plan was discussed during the office visit and provided to the patient: See below Natali Mcguire MD Chief Complaint Patient presents with: Medicare Wellness Exam HPI Chula Whitfield is a 82 year old male who presents here today for Chronic Medical Conditions. and Medicare Annual Visit. Office visit - medicare wellness Patient with Hc of CAD seing Cardio, HTN, Hyperlipidemia, GERD, allergic rhinitis, pacemaker in place, elevated PSA seeing Urology, BPH, Hx of skin cancer seeing Derm, S/P CABG Patient has been doing well for the most part. Any concerns today - noticed some drainage. Office visit - medicare wellness 12/2021 Patient with Hc of CAD seing Cardio, HTN, Hyperlipidemia, GERD, allergic rhinitis, pacemaker in place, elevated PSA seeing Urology, BPH, Hx of skin cancer seeing Derm, S/P CABG Past medical history, appointments, medications, allergies reviewed. Previous Medical History PAST MEDICAL HISTORY Diagnosis Date Advance directive discussed with patient 01/01/2022 Discussed 12/2021 ASHD (arteriosclerotic heart disease) 11/09/2017 OR 2007 Atherosclerosis of coronary artery of [place] heart without angina pectoris 06/26/2015 Benign prostatic hyperplasia with urinary frequency 08/23/2005 Dr. 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 07/01/2021 History of OR (myocardial infarction) 1998 Hyperlipidemia, mixed 05/25/[address] 01/01/2022 DPA: Viviane () Medicare annual wellness visit, subsequent 01/01/2022 Medicare Part B: 01/17/2005 Last Done: 01/01/2022 Nontraumatic complete tear of left rotator cuff 07/01/2021 Never had surgery S/P CABG x 2 11/09/2017 Skin cancer, basal cell 11/09/2017 10/06/17, R side of neck Squamous cell cancer of scalp and skin of neck TMJ click right Previous Surgical History PAST SURGICAL HISTORY Procedure Laterality Date ANGIOPLASTY 1998 stent COLONOSCOPY FLX DX W/COLLJ SPEC WHEN PFRMD 05/17/07 repeat due 2016 COLONOSCOPY FLX DX W/COLLJ SPEC WHEN PFRMD 05/31/2017 Colonoscopy CORONARY ARTERY BYP W/VEIN & ARTERY GRAFT 4 VEIN 09/25 x4, [facility], Dr. Nelson LAPS SURG CHOLECYSTECTOMY W/CHOLANGIOGRAPHY 07/29/08 [facility] SURGERY STAGE 1- UP 5 SPECIMENS 12/17/13 SCC left forehead PACEMAKER 01/03/2017 PAST SURGICAL HISTORY OF 2006 open heart surgery XCAPSL CTRC RMVL INSJ IO LENS PROSTH W/O ECP 04/11/13 Cataract Extraction with PC IOL per Dr. Doan Family History FAMILY HISTORY Problem Relation Age of Onset Cancer Mother Ischemic Heart Disease Paternal Uncle Patient Allergies ALLERGIES No Known Allergies Current Medications Current Outpatient Medications on File Prior to Visit Medication Sig lisinopril (ZESTRIL, PRINIVIL) 10 mg tablet Take 0.5 tablets by mouth once daily. Per [facility] MULTIVITAMIN ORAL Take by mouth. latanoprost (XALATAN) 0.005 % ophthalmic solution tamsulosin ER (FLOMAX) 0.4 mg cap TAKE 1 CAPSULE BY MOUTH EVERY DAY AT 530PM Omeprazole Magnesium 20 mg cpDR Take by mouth once daily. docusate sodium (STOOL SOFTENER) 100 mg capsule 3 capsules once daily. nitroglycerin sublingual (NITROSTAT) 0.4 mg SL tablet Dissolve 1 tablet under the tongue as needed. DISSOLVE ON TONGUE FOR CHEST PAIN. IF NO PAIN RELIEF, CALL 911 Aspirin 81 mg Tab Take 162 mg by mouth twice daily. rosuvastatin calcium(CRESTOR 40 MG TAB) Take one(1) tablet daily in the evening. No current facility-administered medications on file prior to visit. Social History Social History Tobacco Use Smoking status: Never Smokeless tobacco: Never Substance Use Topics Alcohol use: Yes Alcohol/week: 5.0 standard drinks Types: 2 Cans of Beer (12oz) per week Drug use: No Review of Symptoms REVIEW OF SYSTEMS GENERAL: No weight loss, malaise or fevers HEENT: Negative for frequent or significant headaches, No changes in hearing or vision, no nose bleeds or other nasal problems. Continues to have a lot of post nasal drainage. No sore throat. NECK: Negative for lumps, goiter, pain and significant neck swelling RESPIRATORY: Negative for cough, hemoptysis, wheezing, COPD, dyspnea or shortness of breath CARDIOVASCULAR: Negative for chest pain, leg swelling, hypertension, CHF or palpitations GI: No nausea, vomiting, or diarrhea, No heartburn or reflux symptoms, and no blood : No history of dysuria, blood MUSCULOSKELETAL: Negative for joint pain or swelling, back pain or muscle pain SKIN: Negative for lesions, rash, and itching PSYCH: Negative for sleep disturbance, mood disorder and recent psychosocial stressors HEMATOLOGY/LYMPHOLOGY: Negative for prolonged bleeding, bruising easily or swollen nodes ENDOCRINE: Negative for cold or heat intolerance, polyuria, polydipsia and goiter NEURO: No history of headaches, syncope, paralysis, seizures or tremors EXAM: BP 140/88 (BP Site: Left Arm, BP Position: Sitting, BP Cuff Size: Regular Adult) Pulse 64 Resp 16 Ht 171.5 cm (5' 7.5 ) Wt 78.9 kg (174 lb) BMI 26.85 kg/m BP 134/82 Pulse 64 Resp 16 Ht 171.5 cm (5' 7.5 ) Wt 78.9 kg (174 lb) BMI 26.85 kg/m Last 5 Encounter Wt Readings: Date: Wt: 01/19/2023 78.9 kg (174 lb) 02/06/2022 79.2 kg (174 lb 9.6 oz) 01/01/2022 78 kg (172 lb) 07/01/2021 78.5 kg (173 lb) 11/17/2020 77.6 kg (171 lb) General Appearance: Well appearing, alert, in no acute distress, well-hydrated, well nourished.. Skin: Skin color, texture, turgor normal, no suspicious rashes or lesions. Head: Normocephalic, no masses, lesions, tenderness or abnormalities. Eyes: Anicteric sclera. Pupils are equally round and reactive to light. Extraocular movements are intact. . Ears: External ears, TM's normal, canals clear. Nose/Sinuses: Nares normal, septum midline, mucosa normal, no drainage or sinus tenderness. Oropharynx: Lips, mucosa, and tongue normal, teeth and gums normal, oropharynx normal. Neck: Supple, no adenopathy; thyroid symmetric, normal size, no bruits. Lungs: Lungs clear to auscultation. No wheezing, rhonchi, rales.. Heart: RRR without murmur, gallop, or rubs. No ectopy. Abdomen: Normal abdominal exam, Abdomen soft, non-tender. Bowel sounds normal. No masses, organomegaly. Extremities: No deformities, edema, skin discoloration, . Good capillary refill. . Musculoskeletal: Muscular strength intact, No joint swelling, deformity, or tenderness. Peripheral Pulses: Normal. Neurologic: Gait normal. Reflexes normal and symmetric. Sensation to light touch and crainal nerves 2-12 intact.. Genitalia: Normal, Penis normal. No urethral discharge. Scrotum normal to palpation. No hernia.. Health Maintenance List ADVANCE DIRECTIVE DISCUSSION due on 09/19/2022 DEPRESSION ASSESSMENT Never done LDL CHOLESTEROL due on 01/13/2024 DIABETES SCREEN due on 01/12/2026 DTAP,TDAP,TD(2 - Td or Tdap) due on 11/13/2028 INFLUENZA Completed SHINGRIX VACCINE Completed COVID-19 VACCINE Completed PNEUMOCOCCAL: 65+ Completed Data reviewed Component Latest Ref Rng & Units 12/17/2021 01/12/2023 WBC 3.70 - 11.00 k/uL 7.14 RBC 4.20 - 6.00 m/uL 4.90 Hemoglobin 13.0 - 17.0 g/dL 14.5 Hematocrit 39.0 - 51.0 % 44.9 MCV 80.0 - 100.0 fL 91.6 MCH 26.0 - 34.0 pg 29.6 MCHC 30.5 - 36.0 g/dL 32.3 RDW-CV 11.5 - 15.0 % 12.5 Platelet Count 150 - 400 k/uL 194 MPV 9.0 - 12.7 fL 10.4 Neut% % 61.5 Abs Neut (ANC) 1.45 - 7.50 k/uL 4.40 Lymph% % 26.1 Abs Lymph 1.00 - 4.00 k/uL 1.86 Bullitt% % 10.1 Abs [place] <0.87 k/uL 0.72 Eosin% % 1.3 Abs Eosin <0.46 k/uL 0.09 Baso% % 0.6 Abs Baso <0.11 k/uL 0.04 Immature Gran % % 0.4 IMMATURE GRANS (ABS) <0.10 k/uL 0.03 NRBC /100 WBC 0.0 Absolute nRBC <0.01 k/uL <0.01 DTYPE Auto Protein, Total 6.3 - 8.0 g/dL 6.9 6.6 Albumin 3.9 - 4.9 g/dL 4.2 4.3 Calcium 8.5 - 10.2 mg/dL 9.0 8.8 Bilirubin, Total 0.2 - 1.3 mg/dL 0.7 0.7 Alkaline Phosphatase 38 - 113 U/L 46 47 AST 14 - 40 U/L 22 28 ALT 10 - 54 U/L 13 15 Glucose 74 - 99 mg/dL 91 93 BUN 9 - 24 mg/dL 19 17 Creatinine 0.73 - 1.22 mg/dL 1.13 1.11 Sodium 136 - 144 mmol/L 139 140 Potassium 3.7 - 5.1 mmol/L 4.4 4.2 Chloride 97 - 105 mmol/L 104 106 (H) CO2 22 - 30 mmol/L 27 25 Anion Gap 9 - 18 mmol/L 8 (L) 9 eGFR >=60 mL/min/1.73m 65 66 Color Yellow Yellow Clarity Clear Clear Glucose, Urine Trace, Negative Negative Bilirubin, Urine Negative Negative Ketones, Urine Trace, Negative Negative Specific [place], Ur 1.005 - 1.030 1.025 Hemoglobin/Blood,Ur Negative, Trace Negative pH, Urine 5.0 - 8.0 6.5 Protein, Urine Trace, Negative Trace Urobilinogen Negative 1+ (A) Nitrites Negative Negative Leukest Negative, 25 Keny/uL Negative WBC, Urine 0-5 /HPF 0-5 /HPF RBC, Urine 0-3 /HPF 0-3 /HPF Epithelial Cells /HPF Few Total Cholesterol, Nonfasting <200 mg/dL 126 124 Triglycerides, Nonfasting <150 mg/dL 75 77 HDL Cholesterol, Nonfasting >39 mg/dL 37 (L) 39 (L) LDL Cholesterol, Nonfasting <100 mg/dL 74 70 Non HDL Cholesterol, Nonfasting <130 mg/dL 89 85 VLDL Cholesterol, Nonfasting <30 mg/dL 15 15 Total Chol/HDL Ratio, Nonfasting <5.10 mg/dL 3.41 3.18 LDL/HDL Ratio, Nonfasting <2.54 mg/dL 2.00 1.79 Hemoglobin A1C 4.3 - 5.6 % 5.4 5.1 Estimated Average Glucose mg/dL 108 100 Vitamin B12 232 - 1,245 pg/mL 481 489 Magnesium 1.7 - 2.3 mg/dL 2.2 2.2 A/P ASSESSMENT/PLAN: 1. Medicare annual wellness visit, subsequent - ICD9: V70.0, ICD10: Z00.00 (primary diagnosis) - Counseled on healthy diet and regular exercise - Follow up for annual exam in one year 2. Essential hypertension - ICD9: 401.9, ICD10: I10 - good control - Continue current medication(s) - Recommended regular aerobic exercise. - Recommend home blood pressure monitoring, to bring results in on next visit - Goal of BP <130/80 3. Hyperlipidemia, mixed - ICD9: 272.2, ICD10: E78.2 - good control - Encouraged following a low fat, low cholesterol diet. - Discussed the benefits of regular aerobic exercise and weight loss. - Encouraged following a low carbohydrate, healthy oil intake diet. - Continue current therapy. 4. GERD without esophagitis - ICD9: 530.81, ICD10: K21.9 - controlled with diet. 5. Atherosclerosis of coronary artery of [place] heart without angina pectoris, unspecified vessel or lesion type - ICD9: 414.01, ICD10: I25.10 - clinically stable no changes and follows with cardio 6. Elevated blood sugar - ICD9: 790.29, ICD10: R73.9 - controlled with life style changes. 7. Cardiac pacemaker - ICD9: V45.01, ICD10: Z95.0 - as per #5 8. Benign prostatic hyperplasia with urinary frequency - ICD9: 600.01, 788.41, ICD10: N40.1, R35.0 - management per Urology 9. Advance directive discussed with patient - ICD9: V65.49, ICD10: Z71.89 - needs to bring in copies. 10. Allergic rhinitis, unspecified seasonality, unspecified trigger - ICD9: 477.9, ICD10: J30.9 - will trial singulair 10 mg QHS Requested Prescriptions Signed Prescriptions Disp Refills montelukast (SINGULAIR) 10 mg tablet 90 tablet 1 Sig: Take 1 tablet by mouth daily at bedtime. F/u in a year for WAE sooner if issues. I spent a total of 40 minutes on the date of the service which included preparing to see the patient, [id number] patient care, completing clinical documentation, performing a medically appropriate examination, counseling and educating the patient/family/caregiver and ordering medications, tests, or procedures. Natali Mcguire MD documented in this encounter [facility] 01-13-2023 Miscellaneous Notes notified of lab results. Voiced understanding. Kiara Hare, RN Please let patient know his labs are within normal limits. documented in this encounter [facility] 12-28-2022 Miscellaneous Notes Spouse was notified Anuja Ritchie Ma Let patient know labs and urine test ordered. Does not need to fast. Pt. would like Labs ordered before upcoming appointment. Please advise. Call Pt. back with information. documented in this encounter [facility] 12-04-2022 Note HNO ID: [id number] Author: Jana Thakkar MA Service: ? Author Type: Punch Press Operator Type: Progress Notes Filed: 12/04/2022 7:49 PM Note Text: Scan on 12/02/2022 9:46 AM by External Provider: Consultation - DENITA Thakkar MA [facility] 12-04-2022 History of Presen t illness Narrative Scan on 12/02/2022 9:46 AM by External Provider: Consultation - DENITA Thakkar MA documented in this encounter [facility] 02-06-2022 History of Presen t illness Narrative Images from the original note were not included. Subjective HPI ROS Objective Physical Exam Constitutional: Appearance: Normal appearance. Pulmonary: Effort: Pulmonary effort is normal. Skin: General: Skin is warm. Comments: bruising noted in this area Right arm 10 inches Left arm 11 inches Neurological: Mental Status: He is alert. 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 07/01/2021 History of OR (myocardial infarction) 1998 Hyperlipidemia, mixed 05/25/[address] 01/01/2022 DPA: Viviane () Medicare annual wellness visit, subsequent 01/01/2022 Medicare Part B: 01/17/2005 Last Done: 01/01/2022 Nontraumatic complete tear of left rotator cuff 07/01/2021 Never had surgery S/P CABG x 2 11/09/2017 Skin cancer, basal cell 11/09/2017 10/06/17, R side of neck Squamous cell cancer of scalp and skin of neck TMJ click right PAST SURGICAL HISTORY Procedure Laterality Date ANGIOPLASTY 1998 stent COLONOSCOPY FLX DX W/COLLJ SPEC WHEN PFRMD 05/17/07 repeat due 2016 COLONOSCOPY FLX DX W/COLLJ SPEC WHEN PFRMD 05/31/2017 Colonoscopy CORONARY ARTERY BYP W/VEIN & ARTERY GRAFT 4 VEIN 09/25 x4, [facility], Dr. Nelson [facility] SURG CHOLECYSTECTOMY W/CHOLANGIOGRAPHY 07/29/08 MOHS SURGERY STAGE 1- UP 5 SPECIMENS 12/17/13 SCC left forehead PACEMAKER 01/03/2017 PAST SURGICAL HISTORY OF 2006 open heart surgery XCAPSL CTRC RMVL INSJ IO LENS PROSTH W/O ECP 04/11/13 Cataract Extraction with PC IOL per Dr. Doan ALLERGIES Patient has no known allergies. MEDICATIONS lisinopril (ZESTRIL, PRINIVIL) 10 mg tablet Take 0.5 tablets by mouth once daily. Per [facility] MULTIVITAMIN ORAL Take by mouth. latanoprost (XALATAN) 0.005 % ophthalmic solution tamsulosin ER (FLOMAX) 0.4 mg cap TAKE 1 CAPSULE BY MOUTH EVERY DAY AT 530PM Omeprazole Magnesium 20 mg cpDR Take by mouth once daily. docusate sodium (STOOL SOFTENER) 100 mg capsule 3 capsules once daily. nitroglycerin sublingual (NITROSTAT) 0.4 mg SL tablet Dissolve 1 tablet under the tongue as needed. DISSOLVE ON TONGUE FOR CHEST PAIN. IF NO PAIN RELIEF, CALL 911 Aspirin 81 mg Tab Take 162 mg by mouth twice daily. rosuvastatin calcium(CRESTOR 40 MG TAB) Take one(1) tablet daily in the evening. FAMILY HISTORY Problem Relation Age of Onset Cancer Mother Ischemic Heart Disease Paternal Uncle Social History Tobacco Use Smoking status: Never Smoker Smokeless tobacco: Never Used Substance Use Topics Alcohol use: Yes Alcohol/week: 5.0 standard drinks Types: 2 Cans of Beer (12oz) per week Drug use: No ASSESSMENT/PLAN: 1. Bruising - ICD9: 924.9, ICD10: T14.8XXA (primary diagnosis) - US DVT UPPER LT 2. Localized swelling, mass and lump, left upper limb - ICD9: 782.2, ICD10: R22.32 - US DVT UPPER LT Ultrasound is scheduled for Tuesday. No treatment at this time until test results come back. Care plan will be devised at this time. Lizbeth Thakkar APRN.EXCEPTIONAL STUDENT EDUCATION AIDE documented in this encounter [facility] 02-01-2022 Miscellaneous Notes BP ok. No further changes. Will monitor. Manual Readin/76 Pulse: 60 Reason for blood pressure check - Medication adjustment Patient is: Taking medication as prescribed Yes Took medication today Yes If no, date medication last taken N/A Experiencing side effects No BP was low at last appt 01/01/22. Lisinopril was decreased to 5mg daily. Tolerating medication change well. Denies any chest pain, shortness of breath, dizziness, or headaches. No caffeine use. No personal history of tobacco use; no current exposure. Alert and oriented. Pt has been identified by name and birthdate: Yes Allergies reviewed: Yes Latex allergy: no. Medication - prescribed and OTC reviewed and updated: Yes Do you need any prescription refills prior to your next visit: No Health Maintenance: Reviewed and not up to date and provider notified Patient advised to continue with current medications and would be contacted if any further instructions after review by PCP. Stacey Alcocer LPN documented in this encounter [facility] 02-01-2022 History of Presen t illness Narrative Manual Readin/76 Pulse: 60 Reason for blood pressure check - Medication adjustment Patient is: Taking medication as prescribed Yes Took medication today Yes If no, date medication last taken N/A Experiencing side effects No BP was low at last appt 01/01/22. Lisinopril was decreased to 5mg daily. Tolerating medication change well. Denies any chest pain, shortness of breath, dizziness, or headaches. No caffeine use. No personal history of tobacco use; no current exposure. Alert and oriented. Pt has been identified by name and birthdate: Yes Allergies reviewed: Yes Latex allergy: no. Medication - prescribed and OTC reviewed and updated: Yes Do you need any prescription refills prior to your next visit: No Health Maintenance: Reviewed and not up to date and provider notified Patient advised to continue with current medications and would be contacted if any further instructions after review by PCP. Stacey Alcocer LPN documented in this encounter [facility] 01-01-2022 Instructions Natali Mcguire MD - 01/01/2022 9:27 AM EDT With your lisinopril 10 mg starting cutting in 1/2 and take 1/2 a tab daily. Bring in copy of living will and power of ip technology transactions attorney for health care for you and spouse. documented in this encounter [facility] 01-01-2022 History of Presen t illness Narrative Medicare Yearly Visit Medical B eligibilty date 01/17/2005 Date of last exam NA PAST MEDICAL HISTORY Diagnosis Date Advance directive discussed with patient 01/01/2022 Discussed 12/2021 Allergic rhinitis, cause unspecified 08/23/2005 ASHD (arteriosclerotic heart disease) 11/09/2017 OR 2007 Atherosclerosis of coronary artery of [place] heart without angina pectoris 06/26/2015 BPH without obstruction/lower urinary tract symptoms 08/23/2005 Cardiac pacemaker 11/09/2017 2007: Mobitz II CORONARY ATHEROSCLER UNSPEC VESSEL Dr Asif Diverticulosis of colon (without mention of hemorrhage) Elevated blood sugar 07/01/2021 Elevated PSA 04/26/2019 04/24/19: PSA 12.09 Esophageal reflux Essential hypertension 08/28/2008 GERD without esophagitis 05/25/2005 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 07/01/2021 History of OR (myocardial infarction) 1998 Hyperlipidemia Hyperlipidemia, mixed 05/25/2005 Hypertension HYPERTROPHY PROSTATE W/O OBST 08/23/2005 Medicare annual wellness visit, subsequent 01/01/2022 Medicare Part B: 01/17/2005 Last Done: 01/01/2022 Nontraumatic complete tear of left rotator cuff 07/01/2021 Never had surgery Old myocardial infarction 1998 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 Nelson LAPS SURG CHOLECYSTECTOMY W/CHOLANGIOGRAPHY 07/29/08 MOHS SURGERY STAGE 1- UP 5 SPECIMENS 12/17/13 SCC left forehead PACEMAKER 01/03/2017 PAST SURGICAL HISTORY OF 2006 open heart surgery XCAPSL CTRC RMVL INSJ IO LENS PROSTH W/O ECP 04/11/13 Cataract Extraction with PC IOL per Dr. Doan ALLERGIES: Patient has no known allergies. Medications reviewed: Yes FAMILY HISTORY Problem Relation Age of Onset Cancer Mother Ischemic Heart Disease Paternal Uncle SOCIAL HISTORY: Social History Tobacco Use Smoking status: Never Smoker Smokeless tobacco: Never Used Substance Use Topics Alcohol use: Yes Alcohol/week: 5.0 standard drinks Types: 2 Cans of Beer (12oz) per week Drug use: No Merle works out regularly several times per week with walking and light weights. He watches his diet for sodium, low fat and low cholesterol most of the time. List of current specialists seen: Dr. Asif (cardio) Dr. Lainez (Urologiy) End of Live Planning discussed including patients advanced directive wishes: Yes I am willing to follow Chula's advanced directives. PHQ-2 / Depression screen Depression Screening 03/17/2016 11/09/2017 11/13/2018 01/01/2022 PHQ-2 Score 0 0 0 0 Depression screening tool completed and reviewed. Based on score and interview, patient is not at risk for depression. Screening tool discussed with patient, and I recommended no further intervention at this time. Functional Ability/Safety Screen 1. Was the patient's timed Up and Go test unsteady or longer than 30 seconds? No 2. Does the patient need help with the phone, transportation, shopping,preparing meals, housework, laundry, medications or managing money? No 3. Does your home have rugs in the hallway, lack of grab bars in the bathroom, lack of handrails on the stairs or have poor lighting? No Hearing Evaluation: hard of hearing PHYSICAL EXAM BP 112/74 (BP Site: Left Arm, BP Position: Sitting, BP Cuff Size: Regular Adult) Pulse 64 Resp 16 Ht 171.5 cm (5' 7.5 ) Wt 78 kg (172 lb) BMI 26.54 kg/m Alert and oriented X 3: YES Body mass index is 26.54 kg/m . Visual acuity: seeing optho See below ASSESSMENT/PLAN: 81 year old male The following prevention plan was discussed during the office visit and provided to the patient: See below Natali Mcguire MD Chief Complaint Patient presents with: Medicare Wellness Exam HPI Chula Whitfield is a 81 year old male who presents here today for Medicare Annual Visit. Patient with Hc of CAD seing Cardio, HTN, Hyperlipidemia, GERD, allergic rhinitis, pacemaker in place, elevated PSA seeing Urology, BPH, Hx of skin cancer seeing Derm, S/P CABG Concerns: Left knee pain x 2 weeks; is getting better; thinks he twisted. Has has issues with nasal drainage for quite some time. Past medical history, appointments, medications, allergies reviewed. Previous Medical History PAST MEDICAL HISTORY Diagnosis Date Allergic rhinitis, cause unspecified 08/23/2005 ASHD (arteriosclerotic heart disease) 11/09/2017 OR 2006 Atherosclerosis of coronary artery of [place] heart without angina pectoris 06/26/2015 BPH without obstruction/lower urinary tract symptoms 08/23/2005 Cardiac pacemaker 11/09/2017 2007: Mobitz II CORONARY ATHEROSCLER UNSPEC VESSEL Dr Asif Diverticulosis of colon (without mention of hemorrhage) Elevated blood sugar 07/01/2021 Elevated PSA 04/26/2019 04/24/19: PSA 12.09 Esophageal reflux Essential hypertension 08/28/2008 GERD without esophagitis 05/25/2005 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 07/01/2021 History of OR (myocardial infarction) 1998 Hyperlipidemia Hyperlipidemia, mixed 05/25/2005 Hypertension HYPERTROPHY PROSTATE W/O OBST 08/23/2005 Nontraumatic complete tear of left rotator cuff 07/01/2021 Never had surgery Old myocardial infarction 1998 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 Nelson COLONOSCOP W/ OR W/O [facility] SPEC 05/17/07 repeat due 2016 COLONOSCOP W/ OR W/O [facility] SPEC 05/31/2017 Colonoscopy LAP CHOLECYSTECT/CHOLANGIOGRAPHY 07/29/08 MOH SURGERY STAGE 1- UP 5 SPECIMENS 12/17/13 SCC left forehead PACEMAKER 01/03/2017 PAST SURGICAL HISTORY OF 2006 open heart surgery REMV CATARACT EXTRACAP,INSERT LENS 04/11/13 Cataract Extraction with PC IOL per Dr. Doan Family History FAMILY HISTORY Problem Relation Age of Onset Cancer Mother Ischemic Heart Disease Paternal Uncle Patient Allergies ALLERGIES No Known Allergies Current Medications Current Outpatient Medications on File Prior to Visit Medication Sig MULTIVITAMIN ORAL Take by mouth. lisinopril (ZESTRIL, PRINIVIL) 10 mg tablet Take 1 tablet by mouth once daily. Per [facility] latanoprost (XALATAN) 0.005 % ophthalmic solution tamsulosin ER (FLOMAX) 0.4 mg cap TAKE 1 CAPSULE BY MOUTH EVERY DAY AT 530PM Omeprazole Magnesium 20 mg cpDR Take by mouth once daily. docusate sodium (STOOL SOFTENER) 100 mg capsule 3 capsules once daily. nitroglycerin sublingual (NITROSTAT) 0.4 mg SL tablet Dissolve 1 tablet under the tongue as needed. DISSOLVE ON TONGUE FOR CHEST PAIN. IF NO PAIN RELIEF, CALL 911 Aspirin 81 mg Tab Take 162 mg by mouth twice daily. rosuvastatin calcium(CRESTOR 40 MG TAB) Take one(1) tablet daily in the evening. No current facility-administered medications on file prior to visit. Social History Social History Tobacco Use Smoking status: Never Smoker Smokeless tobacco: Never Used Substance Use Topics Alcohol use: Yes Alcohol/week: 5.0 standard drinks Types: 2 Cans of Beer (12oz) per week Drug use: No Review of Symptoms REVIEW OF SYSTEMS GENERAL: No weight loss, malaise or fevers HEENT: Negative for frequent or significant headaches, No changes in hearing or vision, no nose bleeds. Has chronic post nasal drainage. NECK: Negative for lumps, goiter, pain and significant neck swelling RESPIRATORY: Negative for cough, hemoptysis, wheezing, COPD, dyspnea or shortness of breath CARDIOVASCULAR: Negative for chest pain, leg swelling, hypertension, CHF or palpitations GI: No nausea, vomiting, or diarrhea, No heartburn or reflux symptoms and no blood : No history of dysuria, blood MUSCULOSKELETAL: see HPI SKIN: Negative for lesions, rash, and itching PSYCH: Negative for sleep disturbance, mood disorder and recent psychosocial stressors HEMATOLOGY/LYMPHOLOGY: Negative for prolonged bleeding, bruising easily or swollen nodes ENDOCRINE: Negative for cold or heat intolerance, polyuria, polydipsia and goiter NEURO: No history of headaches, syncope, paralysis, seizures or tremors EXAM: BP 112/74 (BP Site: Left Arm, BP Position: Sitting, BP Cuff Size: Regular Adult) Pulse 64 Resp 16 Ht 171.5 cm (5' 7.5 ) Wt 78 kg (172 lb) BMI 26.54 kg/m Last 5 Encounter Wt Readings: Date: Wt: 01/01/2022 78 kg (172 lb) 07/01/2021 78.5 kg (173 lb) 11/17/2020 77.6 kg (171 lb) 11/15/2019 78 kg (172 lb) 04/24/2019 75.3 kg (166 lb) General Appearance: Well appearing, alert, in no acute distress, well-hydrated, well nourished.. Skin: Skin color, texture, turgor normal, no suspicious rashes or lesions. Head: Normocephalic, no masses, lesions, tenderness or abnormalities. Eyes: Anicteric sclera. Pupils are equally round and reactive to light. Extraocular movements are intact. . Ears: External ears, TM's normal, canals clear. Neck: Supple, no adenopathy; thyroid symmetric, normal size, no bruits. Lungs: Lungs clear to auscultation. No wheezing, rhonchi, rales.. Heart: RRR without murmur, gallop, or rubs. No ectopy. Abdomen: Normal abdominal exam, Abdomen soft, non-tender. Bowel sounds normal. No masses, organomegaly. Extremities: No deformities, edema, skin discoloration, Musculoskeletal: Muscular strength intact, No joint swelling, deformity, or tenderness. Peripheral Pulses: Normal. Neurologic: Gait normal. Reflexes normal and symmetric. Sensation to light touch and crainal nerves 2-12 intact.. Genitalia: Normal, Penis normal. No urethral discharge. Scrotum normal to palpation. No hernia.. Health Maintenance List ADVANCE DIRECTIVE DISCUSSION Never done LDL CHOLESTEROL due on 12/17/2022 DIABETES SCREEN due on 12/17/2024 DTAP,TDAP,TD(2 - Td or Tdap) due on 11/13/2028 INFLUENZA Completed PNEUMOVAX AGE 65 AND OVER WITH 5YR LOOKBACK Completed SHINGRIX VACCINE Completed COVID-19 VACCINE Completed MENINGOCOCCAL CONJUGATE Aged Out Data reviewed Component Latest Ref Rng & Units 11/10/2020 12/17/2021 WBC 3.70 - 11.00 k/uL 7.77 7.14 RBC 4.20 - 6.00 m/uL 4.95 4.90 Hemoglobin 13.0 - 17.0 g/dL 15.0 14.5 Hematocrit 39.0 - 51.0 % 45.3 44.9 MCV 80.0 - 100.0 fL 91.5 91.6 MCH 26.0 - 34.0 pg 30.3 29.6 MCHC 30.5 - 36.0 g/dL 33.1 32.3 RDW-CV 11.5 - 15.0 % 12.5 12.5 Platelet Count 150 - 400 k/uL 212 194 MPV 9.0 - 12.7 fL 10.5 10.4 Neut% % 61.5 Abs Neut (ANC) 1.45 - 7.50 k/uL 4.40 Lymph% % 26.1 Abs Lymph 1.00 - 4.00 k/uL 1.86 [place]% % 10.1 Abs [place] <0.87 k/uL 0.72 Eosin% % 1.3 Abs Eosin <0.46 k/uL 0.09 Baso% % 0.6 Abs Baso <0.11 k/uL 0.04 Immature Gran % % 0.4 IMMATURE GRANS (ABS) <0.10 k/uL 0.03 NRBC /100 WBC 0.0 Absolute nRBC <0.01 k/uL <0.01 <0.01 DTYPE Auto Protein, Total 6.3 - 8.0 g/dL 6.8 6.9 Albumin 3.9 - 4.9 g/dL 4.3 4.2 Calcium 8.5 - 10.2 mg/dL 8.9 9.0 Bilirubin, Total 0.2 - 1.3 mg/dL 0.5 0.7 Alkaline Phosphatase 38 - 113 U/L 49 46 AST 14 - 40 U/L 23 22 Glucose 74 - 99 mg/dL 104 (H) 91 BUN 9 - 24 mg/dL 21 19 Creatinine 0.73 - 1.22 mg/dL 1.07 1.13 Sodium 136 - 144 mmol/L 140 139 Potassium 3.7 - 5.1 mmol/L 4.2 4.4 Chloride 97 - 105 mmol/L 107 (H) 104 CO2 22 - 30 mmol/L 24 27 Anion Gap 9 - 18 mmol/L 9 8 (L) ALT 10 - 54 U/L 13 13 eGFR- >60 eGFR-All Other Races . >60 eGFR >=60 mL/min/1.73m 65 Color Yellow Dark Yellow (A) Clarity Clear Slightly Cloudy (A) Glucose, Urine Negative Negative Bilirubin, Urine Negative Negative Ketones, Urine Negative Negative Specific [place], Ur 1.005 - 1.030 1.025 Hemoglobin/Blood,Ur Negative Negative pH, Urine 5.0 - 8.0 6.0 Protein, Urine Negative Negative Urobilinogen Negative 2+ (A) Nitrites Negative Negative Leukest Negative Negative WBC, Urine 0-5 /HPF 0-5 /HPF RBC, Urine 0-3 /HPF 0-3 /HPF Epithelial Cells /HPF Few Hyaline Cast 0 /LPF 1-3 /LPF (A) Cholesterol, Total <200 mg/dL 123 Triglyceride <150 mg/dL 54 HDL Cholesterol >39 mg/dL 48 LDL Cholesterol <100 mg/dL 64 Non HDL Cholesterol <130 mg/dL 75 Fasting Time hrs 10 VLDL Cholesterol <30 mg/dL 11 TC:HDL Ratio <5.10 2.56 LDL:HDL Ratio <2.54 1.33 Total Cholesterol, Nonfasting <200 mg/dL 126 Triglycerides, Nonfasting <150 mg/dL 75 HDL Cholesterol, Nonfasting >39 mg/dL 37 (L) LDL Cholesterol, Nonfasting <100 mg/dL 74 Non HDL Cholesterol, Nonfasting <130 mg/dL 89 VLDL Cholesterol, Nonfasting <30 mg/dL 15 Total Chol/HDL Ratio, Nonfasting <5.10 mg/dL 3.41 LDL/HDL Ratio, Nonfasting <2.54 mg/dL 2.00 Hemoglobin A1C 4.3 - 5.6 % 5.4 Estimated Average Glucose mg/dL 108 Vitamin B12 232-1,245 pg/mL 481 Magnesium 1.7 - 2.3 mg/dL 2.2 A/P ASSESSMENT/PLAN: 1. Medicare annual wellness visit, subsequent - ICD9: V70.0, ICD10: Z00.00 (primary diagnosis) - Counseled on healthy diet and regular exercise - Follow up for annual exam in one year - Discussed the COVID 2nd Booster. - Patient to return if knee pain does not resolve. 2. Essential hypertension - ICD9: 401.9, ICD10: I10 - good control - Recommended regular aerobic exercise. - Recommend home blood pressure monitoring, to bring results in on next visit - With getting dizzy with position changes and BP on the lower end of normal. Will have him cut his lisinopril back to 5 mg a day. - NV BP check in 4 weeks. - Goal of BP <130/80 3. Hyperlipidemia, mixed - ICD9: 272.2, ICD10: E78.2 - good control - Encouraged following a low fat, low cholesterol diet. - Discussed the benefits of regular aerobic exercise and weight loss. - Encouraged following a low carbohydrate, healthy oil intake diet. - Continue current therapy. 4. Elevated blood sugar - ICD9: 790.29, ICD10: R73.9 - Good control with diet. 5. Atherosclerosis of coronary artery of [place] heart without angina pectoris, unspecified vessel or lesion type - ICD9: 414.01, ICD10: I25.10 - Clinically doing well. No changes other then BP mediation. Cont f/u with cardio 6. BPH without obstruction/lower urinary tract symptoms - ICD9: 600.00, ICD10: N40.0 - Clinically stable 7. Living will in place - ICD9: V49.89, ICD10: Z78.9 - Advised to bring in copies. 8. Advance directive discussed with patient - ICD9: V65.49, ICD10: Z71.89 - As per #7 9. Need for vaccination - ICD9: V05.9, ICD10: Z23 - PNEUMOCOCCAL IMMUNIZATION PPSV 23: given F/u in a year for extensive exam I spent a total of 40 minutes on the date of the service which included preparing to see the patient, [id number] patient care, completing clinical documentation, performing a medically appropriate examination, counseling and educating the patient/family/caregiver and ordering medications, tests, or procedures. 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 Rotator cuff dysfunction 12/22/2010 Essential hypertension, benign 02/25/2006 08/28/2008 documented as of this encounter (statuses as of 08/18/2023) [facility] Diagnosis Medicare annual wellness visit, subsequent- Primary Routine general medical examination at a [facility] Essential hypertension Unspecified essential hypertension Hyperlipidemia, mixed Mixed hyperlipidemia Elevated blood sugar Other abnormal glucose Atherosclerosis of coronary artery of [place] heart without angina pectoris, unspecified vessel or lesion type BPH without obstruction/lower urinary tract symptoms Hypertrophy of prostate without urinary obstruction and other lower urinary tract symptoms (LUTS) Living will in place Advance directive discussed with patient Other specified counseling Need for vaccination Need for prophylactic vaccination and inoculation against unspecified single disease [facility] Diagnosis Essential hypertension- Primary Unspecified essential hypertension [facility] Diagnosis Bruising- Primary Contusion of unspecified site Localized swelling, mass and lump, left upper limb [facility] Diagnosis Bruising Contusion of unspecified site Localized swelling, mass and lump, left upper limb [facility] Diagnosis Benign prostatic hyperplasia with urinary frequency [facility] Diagnosis Atherosclerosis of coronary artery of [place] heart without angina pectoris, unspecified vessel or lesion type- Primary Elevated blood sugar Other abnormal glucose Essential hypertension Unspecified essential hypertension Hyperlipidemia, mixed Mixed hyperlipidemia Medication management Encounter for long-term (current) use of other medications GERD without esophagitis Esophageal reflux [facility]* Diagnosis Medicare annual wellness visit, subsequent- Primary Routine general medical examination at a health care facility Essential hypertension Unspecified essential hypertension Hyperlipidemia, mixed Mixed hyperlipidemia GERD without esophagitis Esophageal reflux Atherosclerosis of coronary artery of [place] heart without angina pectoris, unspecified vessel or lesion type Elevated blood sugar Other abnormal glucose Cardiac pacemaker Cardiac pacemaker in situ Benign prostatic hyperplasia with urinary frequency Advance directive discussed with patient Other specified counseling Allergic rhinitis, unspecified seasonality, unspecified trigger documented in this encounter [facility] for referral (narrative)* Diagnostic Procedure Only (Routine) - Authorized Specialty Diagnoses / Procedures Referred By Mojgan rodriguez Referred To Contact US IMAGING Diagnoses Bruising Localized swelling, mass and lump, left upper limb Procedures US DVT UPPER LT DUP-SCAN XTR VEINS UNILATERAL/LIMITED STUDY Lizbeth Thakkar APRN.EXCEPTIONAL STUDENT EDUCATION AIDE [address] [place] [address] Us Imaging Referral ID Status Reason Start Date Expiration Date Visits Requested Visits Authorized [id number] Authorized Auto-Generat ed Referral 02/06/2022 03/08/[address] [facility] for referral (narrative)* Diagnostic Procedure Only (Routine) - Closed Specialty Diagnoses / Procedures Referred By Mojgan rodriguez Referred To Contact US IMAGING Diagnoses Bruising Localized swelling, mass and lump, left upper limb Procedures US DVT UPPER LT DUP-SCAN XTR VEINS UNILATERAL/LIMITED STUDY Lizbeth Thakkar APRN.EXCEPTIONAL STUDENT EDUCATION AIDE [address] [place] [address] Us Imaging Referral ID Status Reason Start Date Expiration Date V isits Requested Visits Authorized [id number] Closed Auto-Generate d Referral 02/06/2022 03/08/[address] [facility] for visit Narrative* Diagnostic Procedure Only (Routine) - Closed Specialty Diagnoses / Procedures Referred By Mojgan t Referred To Contact US IMAGING Diagnoses Bruising Localized swelling, mass and lump, left upper limb Procedures US DVT UPPER LT DUP-SCAN XTR VEINS UNILATERAL/LIMITED STUDY Lizbeth Thakkar APRN.EXCEPTIONAL STUDENT EDUCATION AIDE [address] [place] [address] Us Imaging Referral ID Status Reason Start Date Expiration Date V isits Requested Visits Authorized [id number] Closed Auto-Generate d Referral 02/06/2022 03/08/2023 1 1 [facility] Summary Purpose Family History No Family History Records FoundNo Family History Records Found Advance Directives No Advanced Directives Records FoundDocuments on File Type Date Recorded 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 Advance Directive(s) 05/31/2017 10:05 AM Advance Directive(s) 05/16/2017 11:40 AM Documents on File Type Date Recorded 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 Advance Directive(s) 05/31/2017 10:05 AM Advance Directive(s) 05/16/2017 11:40 AM Documents on File Type Date Recorded 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 Advance Directive(s) 05/03/2023 1:34 PM Health Concerns Infection Onset Date Last Indicated Resolved Time COVID-19 Confirmed 08/17/2023 08/17/2023 Additional Source Comments (unrecognized sect ion and content) No Status Records FoundNo Status Records Found INFORMATION SOURCE (unrecogn ized section and content) DATE CREATED AUTHOR AUTHOR'S ORGANIZ ATION 08/19/2023 [facility] Source Comments (unrecognize d section and content) In the event this informatio n is protected by the Federal Confidentiality of Alcohol and Drug Abuse Patient Records regulations: The Federal rules restrict any use of the information to criminally investigate or prosecute any alcohol or drug abuse patient.[facility] event this information is protected by the Federal Confidentiality of Alcohol and Drug Abuse Patient Records regulations: The Federal rules restrict any use of the information to criminally investigate or prosecute any alcohol or drug abuse patient.[facility] the event this information is protected by the Federal Confidentiality of Alcohol and Drug Abuse Patient Records regulations: The Federal rules restrict any use of the information to criminally investigate or prosecute any alcohol or drug abuse patient.[facility] the event this information is protected by the Federal Confidentiality of Alcohol and Drug Abuse Patient Records regulations: The Federal rules restrict any use of the information to criminally investigate or prosecute any alcohol or drug abuse patient.[facility] the event this information is protected by the Federal Confidentiality of Alcohol and Drug Abuse Patient Records regulations: The Federal rules restrict any use of the information to criminally investigate or prosecute any alcohol or drug abuse patient.[facility] the event this information is protected by the Federal Confidentiality of Alcohol and Drug Abuse Patient Records regulations: The Federal rules restrict any use of the information to criminally investigate or prosecute any alcohol or drug abuse patient.[facility] the event this information is protected by the Federal Confidentiality of Alcohol and Drug Abuse Patient Records regulations: The Federal rules restrict any use of the information to criminally investigate or prosecute any alcohol or drug abuse patient.[facility] the event this information is protected by the Federal Confidentiality of Alcohol and Drug Abuse Patient Records regulations: The Federal rules restrict any use of the information to criminally investigate or prosecute any alcohol or drug abuse patient.[facility] the event this information is protected by the Federal Confidentiality of Alcohol and Drug Abuse Patient Records regulations: The Federal rules restrict any use of the information to criminally investigate or prosecute any alcohol or drug abuse patient.[facility] event this information is protected by the Federal Confidentiality of Alcohol and Drug Abuse Patient Records regulations: The Federal rules restrict any use of the information to criminally investigate or prosecute any alcohol or drug abuse patient.[facility] Reason for Visit (unrecogniz ed section and content) Reason Comments Blood Pressure Check Reason Comments Acute Visit bruise on left arm x 1 week Reason Comments Consult Consult GI Reason Comments Orders Reason Comments Results Care Teams (unrecognized sec tion and content) Machine Shop Lead Man Relationship Specialty Start Date End Date Natali Mcguire MD [address] [place], [place] [address] PCP - General Family Practice 07/01/21 Rufino Grimaldo Jr. [address] [phone] Physician Urology 11/19/14 Terra Valdez Physician Infectious Diseases 11/19/14 Machine Shop Lead Man Relationship Specialty Start Date End Date Natali Mcguire MD [address] [place], [place] [id number] PCP - General Family Practice 07/01/21 Rufino Grimaldo Jr. [address] [phone] Physician Urology 11/19/14 Terra Valdez Physician Infectious Diseases 11/19/14 Machine Shop Lead Man Relationship Specialty Start Date End Date Natali Mcguire MD [address], [place] [id number] PCP - General Family Practice 07/01/21 Rufino Grimaldo Jr. [address] [phone] Physician Urology 11/19/14 Terra Valdez Physician Infectious Diseases 11/19/14 Machine Shop Lead Man Relationship Specialty Start Date End Date Natali Mcguire MD [address] [facility] [place] [address] PCP - General Family Practice 07/01/21 Rufino Grimaldo Jr. [address] [phone] Physician Urology 11/19/14 Terra Valdez Physician Infectious Diseases 11/19/14 Machine Shop Lead Man Relationship Specialty Start Date End Date Natali Mcguire MD [address] [facility] [place] [address] PCP - General Family Medicine 07/01/21 Rufino Grimaldo Jr. [address] [phone] Physician Urology 11/19/14 Terra Valdez MD [address] [address] Physician Infectious Diseases 11/19/14 Machine Shop Lead Man Relationship Specialty Start Date End Date Natali Mcguire MD [address] [facility] [place] [address] PCP - General Family Medicine 07/01/21 Rufino Grimaldo Jr. 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 [address] [phone] Physician Urology 11/19/14 Terra Valdez MD [address] [phone] Physician Infectious Diseases 11/19/14 FOR RECORDS PERTAINING TO PATIENTS WHO ARE OR HAVE BEEN ENROLLED IN A CHEMICAL DEPENDENCY/SUBSTANCEABUSE PROGRAM, SOME INFORMATION MAY BE OMITTED. This clinical summary was aggregated from multiple sources. Caution should be exercised in using it in the provision of clinical care. This summary normalizes information from multiple sources, and as a consequence, information in this document may materially change the coding, format and clinical context of patient data. In addition, data may be omitted in some cases. CLINICAL DECISIONS SHOULD BE BASED ON THE PRIMARY CLINICAL RECORDS. [email or web address] provides no warranty or guarantee of the accuracy or completeness of information in this document.
--- NOTE | 2023-10-05 09:22 | STRESSREP ---
Stress Test Report Pharmacologic myocardial perfusion stress test. 83-year-old with a history of chest pain Resting EKG demonstrates sinus rhythm with a first-degree AV block with a rate of 60 bpm. Resting blood pressure is 130/88 mmHg. 0.4 mg of regadenoson was infused per usual protocol followed by rapid intravenous saline flush injection. Continuous EKG monitoring was performed. The maximum heart rate was 75 bpm which was 54% of max impacted heart rate the maximum workload was 1 metabolic equivalent. At rest there were no ST or T wave changes noted to suggest ischemia and at peak infusion nonspecific ST changes were noted which did not meet the criteria for ischemia. No clinical angina is noted. The final blood pressure was 110/66 mmHg. Myocardial perfusion protocol. 11.4 mCi of technetium 99m sestamibi was injected at rest. 0.4 mg of regadenoson was infused per usual protocol. At peak infusion 34.1 mCi of technetium 99m sestamibi was injected stress images were obtained stress and rest images were reconstructed and compared in the short axis vertical long and horizontal long axis. Gated images were also obtained. Perfusion SPECT analysis: Review of the stress images demonstrate normal uptake of tracer in most areas of the ventricle. There is an area in the apex and mid inferior wall with mildly reduced perfusion. The resting images demonstrate a similar pattern. A previous inferior and apical infarct cannot be completely excluded. There is GI uptake also noted. Conclusion: Probably normal pharmacologic myocardial perfusion stress test. Previous inferior apical infarct cannot be completely excluded. .
== END | disposition home or self-care (01) ==
LOC: CVS 06:28
PROVIDERS: PCP Family Medicine; Referring Provider Nurse Practitioner Gerontology; Visit Provider Nurse Practitioner Gerontology
DX: Z95.1 Presence of aortocoronary bypass graft (principal); R07.9 Chest pain, unspecified
CPT/HCPCS: 78452; 93017; A9500; A4216; J2785

== ENCOUNTER → 2023-10-06 | Outpatient (CLI) | payer MEDICARE, OTHER, SELFPAY ==
--- OUTSIDE RECORDS SUMMARY | 2023-10-06 08:55 | XMS RPT_ITS | CCD ---
Author Name Unknown Address [address] [facility] [address] [place] [address] Organization [facility] Care Team Providers Care Hand Bootmaker Name Role Phone RAUL Fitzpatrick, Ksenia Rosenberg [...] Grimaldo Jr. Unavailable Terra Valdez MD Unavailable [phone] Natali Mcguire MD Primary Care Provider [phone] NATALI MCGUIRE Primary Care Unavailable NATALI MCGUIRE Attending Unavailable NATALI MCGUIRE Primary Care Unavailable NATALI MCGUIRE Primary Care Unavailable NATALI MCGUIRE Referring Unavailable Allergies Allergy Classification Reported Allergen(s) Allergy Type Date of Onset Reaction(s) Facility (5 sources) NKDA drug allergy 05-22-2013 [facility] [employer] Work Phone: (5 sources) NKA drug allergy 05-22-2013 [employer] Work Phone: Medications Current Medications Medication Drug [...] TABS One tablet by mouth daily ASPIRIN [id number] Brianna Ames Problems Active Problems Problem Classification Problem Date Documented Date Episodic/Chronic Cardiac dysrhythmias (8 sources) Sinus bradycardia; Translations: [Bradycardia, unspecified] Onset: 12-10-2016 12-10-2016 Chronic Conduction disorders (20 sources) Presence of cardiac pacemaker; Translations: [Atrioventricular block, first degree] Onset: 12-29-2016 01-11-2017 Chronic Coronary atherosclerosis and other heart disease (20 sources) Atherosclerotic heart disease of [place] coronary artery without angina pectoris; Translations: [Coronary [...] (3 sources) Long-term drug therapy; Translations: [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] Onset: 01-15-2011 01-15-2011 Past [...] 11-18-2014 Episodic Other aftercare (6 sources) Other snf (current) drug therapy; Translations: [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] Onset: 01-15-2011 01-15-2011 Episodic Other aftercare (11 sources) Patient encounter status; Translations: [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] Onset: 07-01-2021 07-01-2021 Episodic [...] 82 mm[Hg] Natali Mcguire MD Work Phone: [facility] 01-19-2023 10:19-0400 Systolic blood pressure 134 mm[Hg] Natali Mcguire MD Work Phone: [facility] 01-19-2023 09:55-0400 Body height 171.5 cm Natali Mcguire MD Work Phone: [facility] 01-19-2023 09:55-0400 Body weight 78.93 kg Natali Mcguire MD Work Phone: [facility] 01-19-2023 09:55-0400 Heart rate 64 /min Natali Mcguire MD Work Phone: [facility] 01-19-2023 09:55-0400 Respiratory rate 16 /min Natali Mcguire MD Work Phone: [facility] 02-06-2022 12:18-0400 Body temperature 96.3 [degF] Lizbeth Thakkar APRN.WASTEWATER TECHNICIAN Work Phone: [facility] 02-06-2022 12:18-0400 Body weight 79.2 kg Lizbeth Thakkar APRN.WASTEWATER TECHNICIAN Work Phone: [facility] 02-06-2022 12:18-0400 Diastolic blood pressure 86 mm[Hg] Lizbeth Thakkar APRN.WASTEWATER TECHNICIAN Work Phone: [facility] 02-06-2022 12:18-0400 Heart rate 62 /min Lizbeth Thakkar APRN.WASTEWATER TECHNICIAN Work Phone: [facility] 02-06-2022 12:18-0400 Respiratory rate 21 /min Lizbeth Thakkar APRN.WASTEWATER TECHNICIAN Work Phone: [facility] 02-06-2022 12:18-0400 SaO2% (BldA) [Mass fraction] 98 % Lizbeth Thakkar APRN.WASTEWATER TECHNICIAN Work Phone: [facility] 02-06-2022 12:18-0400 Systolic blood pressure 140 mm[Hg] Lizbeth Thakkar APRN.WASTEWATER TECHNICIAN Work Phone: [facility] 02-01-2022 09:43-0400 Diastolic blood pressure 76 mm[Hg] Mi Nurse Work Phone: [facility] 02-01-2022 09:43-0400 Heart rate 60 /min Mi Nurse Work Phone: [facility] 02-01-2022 09:43-0400 Systolic blood pressure 122 mm[Hg] Mi Nurse Work Phone: [facility] 01-01-2022 09:08-0400 Body height 171.5 cm Natali Mcguire MD Work Phone: [facility] 01-01-2022 09:08-0400 Body weight 78.02 kg Natali Mcguire MD Work Phone: [facility] 01-01-2022 09:08-0400 Diastolic blood pressure 74 mm[Hg] Natali Mcguire MD Work Phone: [facility] 01-01-2022 09:08-0400 Heart rate 64 /min Natali Mcguire MD Work Phone: [facility] 01-01-2022 09:08-0400 Respiratory rate 16 /min Natali Mcguire MD Work Phone: [facility] 01-01-2022 09:08-0400 Systolic blood pressure 112 mm[Hg] Natali Mcguire MD Work Phone: [facility] 03-11-2017 08:36-0400 BMI (Body Mass Index) 24.1 kg/m2 [employer] [employer] Work Phone: 03-11-2017 08:36-0400 BP Diastolic 86 mm[Hg] Jocelin Ruiz [facility] Work Phone: 03-11-2017 08:36-0400 BP Systolic 152 mm[Hg] oJcelin Ruiz [facility] Work Phone: 03-11-2017 08:36-0400 Height 177.8 cm Jocelin Ruiz [facility] Work Phone: 03-11-2017 08:36-0400 Pulse (Heart Rate) 78 /min Jocelin Ruiz [facility] Work Phone: 03-11-2017 08:36-0400 Respiratory Rate 18 /min Jocelin Ruiz [facility] Work Phone: 03-11-2017 08:36-0400 Weight 76.2 kg Jocelin Ruiz [facility] Work Phone: 12-29-2016 15:12-0400 BMI (Body Mass Index) 24.68 kg/m2 RAUL [facility] Work Phone: 12-29-2016 15:12-0400 Body weight 78.02 kg Ksenia Fitzpatrick RN [facility] Work Phone: 12-29-2016 15:12-0400 BP Diastolic 60 mm[Hg] Ksenia Fitzpatrick RN [facility] Work Phone: 12-29-2016 15:12-0400 BP Systolic 140 mm[Hg] Ksenia Fitzpatrick RN [facility] Work Phone: 12-29-2016 15:12-0400 Height 177.8 cm Ksenia Fitzpatrick RN [facility] Work Phone: 12-29-2016 15:12-0400 Pulse (Heart Rate) 60 /min Ksenia Fitzpatrick RN [facility] Work Phone: 12-29-2016 15:12-0400 Respiratory Rate 20 /min [facility] Work Phone: 12-29-2016 15:12-0400 Weight 78.02 kg Ksenia Fitzpatrick RN [facility] Work Phone: 12-10-2016 10:20-0400 Heart rate 41 /min Ksenia Fitzpatrick RN [facility] Work Phone: 06-17-2016 08:38-0400 BSA (Body Surface Area) 1.95 m2 Ksenia Fitzpatrick RN [facility] Work Phone: 11-18-2014 12:40-0500 Body Temperature 97.1 [degF] Ksenia Fitzpatrick RN [facility] Work Phone: 11-18-2014 12:40-0500 Pulse Oximetry 97 % Ksenia Fitzpatrick RN [facility] Work Phone: 05-01-2012 08:42-0400 Heart rate 426 ms Ksenia Fitzpatrick RN [facility] Work Phone: Encounters Encounter Date Encounter Type Care Provider Facility Start: 08-17-2023 Telephone encounter Loly Mina APRN.CNP Work Phone: [facility] Procedures Date Procedure Procedure Detail Performing Clinician Start: 02-08-2022 Dup-scan xtr veins unilateral/limited study Lizbeth Thakkar APRN.WASTEWATER TECHNICIAN Work Phone: Start: 11-09-2017 History of coronary [...] Asif MD Start: 12-29-2016 End: 04-12-2017 MMShakira Asif MD Start: 12-29-2016 End: 04-12-2017 Pacemaker Primary Insertion Bill Asif MD Start: 12-29-2016 End: 12-29-2016 *BMP Bill [...] PA-C Work Phone: Start: 12-10-2016 End: 12-10-2016 [employer] Radha Spaulding PA-C Work Phone: Start: 12-10-2016 [...] 1996 panel - Serum or Plasma Bill sAif MD Start: 01-15-2016 End: 02-19-2016 *Hepatic Function [...] [AGGREGATE] Shakira Hatfield Start: 06-17-2015 End: 06-17-2015 SHEET TURNER Bill Asif MD Start: 06-17-2015 End: 06-18-2015 [...] [AGGREGATE] Shakira Hatfield Start: 11-19-2013 End: 11-19-2013 SHE[employer]URNER Radha Spaulding PA-C Work Phone: Start: 11-19-2013 [...] Detail Author Start: 11-13-2028 Urine microalbumin profile [facility] Start: 01-12-2026 DIABETES SCREEN DIABETES SCREEN [facility] Start: 01-12-2026 Diabetes Screening Diabetes Screening [facility] Start: 12-17-2024 DIABETES SCREEN DIABETES SCREEN [facility] Start: 01-13-2024 Hepatitis B surface antibody level LDL CHOLESTEROL [facility] Start: 05-20-2023 Covid-19 Vaccine ( season) Covid-19 Vaccine () [facility] Start: 05-20-2023 Influenza vaccination INFLUENZA (Season Ended) [facility] Start: 12-27-2022 End: 02-26-2023 Cobalamin (Vitamin B12) [Mass/volume] in Serum or Plasma VITAMIN B12 BLOOD Lab Routine Medication management GERD without esophagitis Expected: 12/27/2022, Expires: 02/26/2023 [facility] Work Phone: Immunizations Immunization Date Immunization Notes Care Provider Fa cili 01-01-2022 pneumococcal polysaccharide vaccine, 23 valent Natali Mcguire MD Work Phone: [facility] 09-02-2021 COVID-19 vaccine, ag e 12+ yr ([employer] - PURPLE TOP) Natali Mcguire MD Work Phone: [facility] 06-15-2021 influenza, high dose seasonal, preservative-free Natali Mcguire MD Work Phone: [facility] 06-15-2021 zoster vaccine recombinant Natali Mcguire MD Work Phone: [facility] 04-01-2021 zoster vaccine recombinant Natali Mcguire MD Work Phone: [facility] 11-26-2020 COVID-19 vaccine, fu ll dose (MODERNA) Natali Mcguire MD Work Phone: [facility] 10-30-2020 COVID-19 vaccine, fu ll dose (MODERNA) Natali Mcguire MD Work Phone: [facility] 07-01-2020 influenza, high dose seasonal, preservative-free Natali Mcguire MD Work Phone: [facility] 07-10-2019 influenza, high dose seasonal, preservative-free Natali Mcguire MD Work Phone: [facility] 11-13-2018 tetanus toxoid, redu ej diphtheria toxoid, and acellular pertussis vaccine, adsorbed Natali Mcguire MD Work Phone: [facility] 07-12-2018 influenza, high dose seasonal, preservative-free Natali Mcguire MD Work Phone: [facility] 06-13-2017 influenza, high dose seasonal, preservative-free Natali Mcguire MD Work Phone: [facility] 06-21-2016 influenza, high dose seasonal, preservative-free Natali Mcguire MD Work Phone: [facility] 06-26-2015 pneumococcal conjuga te vaccine, 13 valent Natali Mcguire MD Work Phone: [facility] 06-17-2015 influenza, high dose seasonal, preservative-free Natali Mcguire MD Work Phone: [facility] 06-19-2014 influenza, seasonal, injectable, preservative free Natali Mcguire MD Work Phone: [facility] 04-17-2012 zoster vaccine, live Natali Mcguire MD Work Phone: [facility] 05-01-2009 pneumococcal polysaccharide vaccine, 23 valent Natali Mcguire MD Work Phone: [facility] Work Phone: 07-28-2008 influenza virus vacc ine, unspecified formulation Natali Mcguire MD Work Phone: [facility] 07-25-2007 influenza virus vacc ine, unspecified formulation Natali Mcguire MD Work Phone: [facility] Work Phone: 07-18-2006 influenza virus vacc ine, unspecified formulation Natali Mcguire MD Work Phone: [facility] 05-30-2006 tetanus and diphther ia toxoids, adsorbed, preservative free, for adult use (2 Lf of tetanus toxoid and 2 Lf of diphtheria toxoid) Natali Mcguire MD Work Phone: [facility] Work Phone: 08-11-2004 pneumococcal polysaccharide vaccine, 23 valent Natali Mcguire MD Work Phone: [facility] Work Phone: Payers Date Payer Category Payer Unknown [employer] [id number] 2007-Present [phone] [address] [place] [address] Indemnity [id number] 2007 Unknown [employer] [id number] 2007-Present [phone] [address] [place] [address] Indemnity [id number] 2007 Unknown [id number] 2005 Medicare MEDICARE MEDICAR E A AND B [id number] 2005-Present [phone] [place] [address] Medicare [id number] 2005 Medicare MEDICARE MEDICAR E A AND B [id number] 2005-Present [phone] [place] [address] Medicare [id number] 2005 Medicare [id number] Social History Date Type Detail Facility Start: 11-13-2018 End: 01-19-2023 Tobacco smoking status NHIS Never smoked tobacco [facility] Work Phone: Start: 01-01-2022 End: 08-17-2023 Alcohol intake Current drinker of alcohol (finding) [facility] Start: 08-27-2020 End: 01-01-2022 Alcohol intake [facility] Work Phone: Start: 1940 Sex Assigned At Not on file [facility] Start: 12-22-2021 End: 01-01-2022 Exposure to SARS-CoV-2 (event) Not sure [facility] Start: 01-27-2022 End: 02-06-2022 Exposure to SARS-CoV-2 (event) Unable to assess [facility] Work Phone: Start: 11-13-2018 End: 01-19-2023 Tobacco use and exposure Smokeless tobacco non-user [facility] Start: 08-27-2020 End: 08-17-2023 Tobacco use panel [facility] Work Phone: Adult Depression Screening Assessment 0 [facility] Work Phone: Clinical Notes 04-20-2012 to 08-17-2023 [...] Loly Hurtado APRN.CNP documented in this encounter [facility] 08-17-2023 Note HNO ID: [id number] Author: Loly Hurtado APRN.CNP Service: ? Author [...] Discussed 12/2021 ASHD (arteriosclerotic heart disease) 11/09/2017 [place] 2007 Atherosclerosis of coronary artery of [place] heart without angina pectoris 06/26/2015 Benign prostatic hyperplasia with urinary frequency 08/23/2005 Dr. 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 Leslie FAGAN SURG CHOLECYSTECTOMY W/CHOLANGIOGRAPHY 07/29/08 [facility] SURGERY STAGE 1- UP 5 SPECIMENS [...] Normal breath sounds. (more content not included)... [facility] 06-23-2023 Note HNO ID: [id number] Author: Georgina Ceballos LPN Service: ? Author Type: ? Type: Progress Notes Filed: 06/23/2023 1:48 PM Note Text: Scan on 06/23/2023 9:48 AM by Provider, Jose PAHerbC: Consultation - Cardiology [facility] 01-19-2023 Note HNO ID: [id number] Author: Natali Mcguire MD Service: ? Author Type: Physician Type: Progress Notes Filed: 01/20/2023 7:18 PM Note Text: Medicare Yearly Visit Medical B eligibilty date 01/17/2005 Date of last exam 01/01/2022 PAST MEDICAL HISTORY PAST MEDICAL HISTORY Diagnosis Date Advance directive discussed with patient 01/01/2022 Discussed 12/2021 Allergic rhinitis, cause unspecified 08/23/2005 ASHD (arteriosclerotic heart disease) 11/09/2017 [place] 2007 Atherosclerosis of coronary artery of [place] heart without angina pectoris 06/26/2015 BPH without obstruction/lower urinary tract symptoms 08/23/2005 Cardiac pacemaker 11/09/2017 2007: Mobitz II CORONARY ATHEROSCLER UNSPEC VESSEL Dr Asif Diverticulosis of colon (without mention of hemorrhage) Elevated blood sugar 07/01/2021 Elevated PSA 04/26/2019 04/24/19: PSA 12.09 Esophageal reflux Essential hypertension 08/28/2008 GERD without esophagitis 05/25/2005 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 Nelson LAP SURG CHOLECYSTECTOMY W/CHOLANGIOGRAPHY [...] in place, elevated (more content not included)... [facility] 01-19-2023 History of Presen t illness Narrative Medicare Yearly Visit Medical B eligibilty date 01/17/2005 Date of last exam 01/01/2022 PAST MEDICAL HISTORY PAST MEDICAL HISTORY Diagnosis Date Advance directive discussed with patient 01/01/2022 Discussed 12/2021 Allergic rhinitis, cause unspecified 08/23/2005 ASHD (arteriosclerotic heart disease) 11/09/2017 [place] 2007 Atherosclerosis of coronary artery of [place] heart without angina pectoris 06/26/2015 BPH without obstruction/lower urinary tract symptoms 08/23/2005 Cardiac pacemaker 11/09/2017 2007: Mobitz II CORONARY ATHEROSCLER UNSPEC VESSEL Dr Asif Diverticulosis of colon (without mention of hemorrhage) Elevated blood sugar 07/01/2021 Elevated PSA 04/26/2019 04/24/19: PSA 12.09 Esophageal reflux Essential hypertension 08/28/2008 GERD without esophagitis 05/25/2005 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 Nelson LAPS SURG CHOLECYSTECTOMY W/CHOLANGIOGRAPHY [...] Discussed 12/2021 ASHD (arteriosclerotic heart disease) 11/09/2017 [place] 2007 Atherosclerosis of coronary artery of [place] heart without angina pectoris 06/26/2015 Benign prostatic hyperplasia with urinary frequency 08/23/2005 Dr. 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 Nelson LAPS SURG CHOLECYSTECTOMY W/CHOLANGIOGRAPHY [...] Abs Lymph 1.00 - 4.00 k/uL 1.86 [place]% % 10.1 Abs [place] <0.87 k/uL 0.72 [place]% % 1.3 Abs [...] Negative Ketones, Urine Trace, Negative Negative Specific [place], Ur 1.005 - 1.030 1.025 Hemoglobin/Blood,Ur Negative, [...] diet. 5. Atherosclerosis of coronary artery of [place] heart without angina pectoris, unspecified vessel or [...] which included preparing to see the patient, [id number] patient care, completing clinical documentation, performing a medically appropriate examination, counseling and educating the patient/family/caregiver and ordering medications, tests, or procedures. Natali Mcguire MD documented in this encounter [facility] 01-13-2023 Miscellaneous Notes notified of lab results. Voiced understanding. Kiara Hare, RN Please let patient know his labs are within normal limits. documented in this encounter [facility] 12-28-2022 Miscellaneous Notes Spouse was notified Anuja Ritchie Ma Let patient know labs and urine test ordered. Does not need to fast. Pt. would like Labs ordered before upcoming appointment. Please advise. Call Pt. back with information. documented in this encounter [facility] 12-04-2022 Note HNO ID: [id number] Author: Jana Thakkar MA Service: ? Author Type: Forensic Sergeant Type: Progress Notes Filed: 12/04/2022 7:49 PM Note Text: Scan on 12/02/2022 9:46 AM by External Provider: Consultation - DENITA Thakkar MA [facility] 12-04-2022 History of Presen t illness Narrative Scan on 12/02/2022 9:46 AM by External Provider: Consultation - DENITA Thakkar MA documented in this encounter [facility] 02-06-2022 History of Presen t illness Narrative [...] Discussed 12/2021 ASHD (arteriosclerotic heart disease) 11/09/2017 [place] 2007 Atherosclerosis of coronary artery of [place] heart without angina pectoris 06/26/2015 BPH without obstruction/lower urinary tract symptoms 08/23/2005 Cardiac pacemaker 11/09/2017 2007: Mobitz II Diverticulosis of colon (without mention of hemorrhage) Elevated blood sugar 07/01/2021 Elevated PSA 04/26/2019 04/24/19: PSA 12.09 Essential hypertension 08/28/2008 GERD without esophagitis 05/25/2005 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 Nelson [facility] SURG CHOLECYSTECTOMY W/CHOLANGIOGRAPHY 07/29/08 [facility] ST[facility] [...] be devised at this time. Lizbeth Thakkar APRN.WASTEWATER TECHNICIAN documented in this encounter [facility] 02-01-2022 Miscellaneous Notes BP ok. No further [...] Stacey Alcocer LPN documented in this encounter [facility] 02-01-2022 History of Presen t illness Narrative [...] Stacey Alcocer LPN documented in this encounter [facility] 01-01-2022 Instructions Natali Mcguire MD - 01/01/2022 9:27 AM EDT With your lisinopril 10 mg starting cutting in 1/2 and take 1/2 a tab daily. Bring in copy of living will and power of estate planning attorney for health care for you and spouse. documented in this encounter [facility] 01-01-2022 History of Presen t illness Narrative Medicare Yearly Visit Medical B eligibilty date 01/17/2005 Date of last exam NA PAST MEDICAL HISTORY Diagnosis Date Advance directive discussed with patient 01/01/2022 Discussed 12/2021 Allergic rhinitis, cause unspecified 08/23/2005 ASHD (arteriosclerotic heart disease) 11/09/2017 [place] 2007 Atherosclerosis of coronary artery of [place] heart without angina pectoris 06/26/2015 BPH without obstruction/lower urinary tract symptoms 08/23/2005 Cardiac pacemaker 11/09/2017 2007: Mobitz II CORONARY ATHEROSCLER UNSPEC VESSEL Dr Asif Diverticulosis of colon (without mention of hemorrhage) Elevated blood sugar 07/01/2021 Elevated PSA 04/26/2019 04/24/19: PSA 12.09 Esophageal reflux Essential hypertension 08/28/2008 GERD without esophagitis 05/25/2005 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 Nelson LAPS SURG CHOLECYSTECTOMY W/CHOLANGIOGRAPHY [...] unspecified 08/23/2005 ASHD (arteriosclerotic heart disease) 11/09/2017 [place] 2006 Atherosclerosis of coronary artery of [place] heart without angina pectoris 06/26/2015 BPH without obstruction/lower urinary tract symptoms 08/23/2005 Cardiac pacemaker 11/09/2017 2007: Mobitz II CORONARY ATHEROSCLER UNSPEC VESSEL Dr Asif Diverticulosis of colon (without mention of hemorrhage) Elevated blood sugar 07/01/2021 Elevated PSA 04/26/2019 04/24/19: PSA 12.09 Esophageal reflux Essential hypertension 08/28/2008 GERD without esophagitis 05/25/2005 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 Nelson COLONOSCOP W/ OR W/O [...] Abs Lymph 1.00 - 4.00 k/uL 1.86 [place]% % 10.1 Abs [place] <0.87 k/uL 0.72 [place]% % 1.3 Abs [...] Negative Negative Ketones, Urine Negative Negative Specific [place], Ur 1.005 - 1.030 1.025 Hemoglobin/Blood,Ur Negative [...] diet. 5. Atherosclerosis of coronary artery of [place] heart without angina pectoris, unspecified vessel or [...] which included preparing to see the patient, [id number] patient care, completing clinical documentation, performing a medically appropriate examination, counseling and educating the patient/family/caregiver and ordering medications, tests, or procedures. Natali Mcguire MD documented in this encounter [facility] documented as of this encounter (statuses as of 01/02/2022) [facility]08-02-2012 History of Past illness Narrative* Problem Noted Date Resolved Date Incisional hernia 04/20/2012 11/09/2017 Overview: Sternotomy scar, Krishna eval 05/2012, plan watchful waiting. Rotator cuff dysfunction 12/22/2010 019 Essential hypertension, benign 02/25/2006 1 10/29/2007 documented as of this encounter (statuses as of 02/01/2022) [facility]08-02-2012 History of Past illness Narrative* Problem Noted Date Resolved Date Incisional hernia 04/20/2012 11/09/2017 Overview: Sternotomy scar, Krishna eval 05/2012, plan watchful waiting. Rotator cuff dysfunction 12/22/2010 019 Essential hypertension, benign 02/25/2006 1 10/29/2007 documented as of this encounter (statuses as of 02/01/2022) [facility]08-02-2012 History of Past illness Narrative* Problem Noted Date Resolved Date Incisional hernia 04/20/2012 11/09/2017 Overview: Sternotomy scar, Krishna eval 05/2012, plan watchful waiting. Rotator cuff dysfunction 12/22/2010 019 Essential hypertension, benign 02/25/2006 1 10/29/2007 documented as of this encounter (statuses as of 02/06/2022) [facility]08-02-2012 History of Past illness Narrative* Problem Noted Date Resolved Date Incisional hernia 04/20/2012 11/09/2017 Overview: Sternotomy scar, Krishna eval 05/2012, plan watchful waiting. Rotator cuff dysfunction 12/22/2010 019 Essential hypertension, benign 02/25/2006 1 10/29/2007 documented as of this encounter (statuses as of 02/09/2022) [facility]08-02-2012 History of Past illness Narrative* Problem Noted Date Resolved Date Incisional hernia 04/20/2012 11/09/2017 Overview: Sternotomy scar, Krishna eval 05/2012, plan watchful waiting. Rotator cuff dysfunction 12/22/2010 019 Essential hypertension, benign 02/25/2006 1 10/29/2007 documented as of this encounter (statuses as of 12/04/2022) [facility]08-02-2012 History of Past illness Narrative* Problem Noted Date Resolved Date Incisional hernia 04/20/2012 11/09/2017 Overview: Sternotomy scar, Krishna eval 05/2012, plan watchful waiting. Rotator cuff dysfunction 12/22/2010 019 Essential hypertension, benign 02/25/2006 1 10/29/2007 documented as of this encounter (statuses as of 12/28/2022) [facility]08-02-2012 History of Past illness Narrative* Problem Noted Date Resolved Date Incisional hernia 04/20/2012 11/09/2017 Overview: Sternotomy scar, Krishna eval 05/2012, plan watchful waiting. 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 Rotator cuff dysfunction 12/22/2010 019 Essential hypertension, benign 02/25/2006 1 10/29/2007 documented as of this encounter (statuses as of 01/21/2023) [facility]08-[facility]-2012 History of Past illness Narrative* Problem Noted Date Diagnosed Date Resolved Date Incisional hernia 04/20/2012 11/09/2017 Overview: Sternotomy scar, Krishna eval 05/2012, plan watchful waiting. Rotator cuff dysfunction 12/22/2010 Essential hypertension, benign 02/25/2006 08/28/2008 documented as of this encounter (statuses as of 08/18/2023) [facility] Diagnosis Medicare annual wellness visit, subsequent- Primary Routine general medical examination at a [facility] Essential hypertension Unspecified essential hypertension Hyperlipidemia, mixed Mixed hyperlipidemia Elevated blood sugar Other abnormal glucose Atherosclerosis of coronary artery of [place] heart without angina pectoris, unspecified vessel or lesion type BPH without obstruction/lower urinary tract symptoms Hypertrophy of prostate without urinary obstruction and other lower urinary tract symptoms (LUTS) Living will in place Advance directive discussed with patient Other specified counseling Need for vaccination Need for prophylactic vaccination and inoculation against unspecified single disease documented [facility] this [facility] Diagnosis Essential hypertension- Primary Unspecified essential hypertension [facility] Diagnosis Bruising- Primary Contusion of unspecified site Localized swelling, mass and lump, left upper limb documented [facility] this [facility] Diagnosis Bruising Contusion of unspecified site Localized swelling, mass and lump, left upper limb documented [facility] this [facility] Diagnosis Benign prostatic hyperplasia with urinary frequency [facility] Diagnosis Atherosclerosis of coronary artery of [place] heart without angina pectoris, unspecified vessel or lesion type- Primary Elevated blood sugar Other abnormal glucose Essential hypertension Unspecified essential hypertension Hyperlipidemia, mixed Mixed hyperlipidemia Medication management Encounter for long-term (current) use of other medications GERD without esophagitis Esophageal reflux documented in this [facility] Diagnosis Medicare annual wellness visit, subsequent- Primary Routine general medical examination at a health care facility Essential hypertension Unspecified essential hypertension Hyperlipidemia, mixed Mixed hyperlipidemia GERD without esophagitis Esophageal reflux Atherosclerosis of coronary artery of [place] heart without angina pectoris, unspecified vessel or lesion type Elevated blood sugar Other abnormal glucose Cardiac pacemaker Cardiac pacemaker in situ Benign prostatic hyperplasia with urinary frequency Advance directive discussed with patient Other specified counseling Allergic rhinitis, unspecified seasonality, unspecified trigger documented in this encounter [facility] for referral (narrative)* Diagnostic Procedure Only (Routine) - Authorized Specialty Diagnoses / Procedures Referred By Mojgan rodriguez Referred To Contact US IMAGING Diagnoses Bruising Localized swelling, mass and lump, left upper limb Procedures US DVT UPPER LT DUP-SCAN XTR VEINS UNILATERAL/LIMITED STUDY Lizbeth Thakkar APRN.WASTEWATER TECHNICIAN [address] [place] [address] Us Imaging Referral ID Status Reason Start Date Expiration Date Visits Requested Visits Authorized [id number] Authorized Auto-Generat ed Referral 02/06/2022 03/08/2023 1 1 [facility] for referral (narrative)* Diagnostic Procedure Only (Routine) - Closed Specialty Diagnoses / Procedures Referred By Mojgan rodriguez Referred To Contact US IMAGING Diagnoses Bruising Localized swelling, mass and lump, left upper limb Procedures US DVT UPPER LT DUP-SCAN XTR VEINS UNILATERAL/LIMITED STUDY Lizbeth Thakkar APRN.WASTEWATER TECHNICIAN [address] [place] [address] Us Imaging Referral ID Status Reason Start Date Expiration Date V isits Requested Visits Authorized [id number] Closed Auto-Generate d Referral 02/06/2022 03/08/2023 1 1 [facility] for visit Narrative* Diagnostic Procedure Only (Routine) - Closed Specialty Diagnoses / Procedures Referred By Mojgan t Referred To Contact US IMAGING Diagnoses Bruising Localized swelling, mass and lump, left upper limb Procedures US DVT UPPER LT DUP-SCAN XTR VEINS UNILATERAL/LIMITED STUDY Lizbeth Thakkar APRN.WASTEWATER TECHNICIAN [address] [place] [address] Us Imaging Referral ID Status Reason Start Date Expiration Date V isits Requested Visits Authorized [id number] Closed Auto-Generate d Referral 02/06/2022 03/08/2023 1 1 [facility] Summary Purpose Family History No Family History Records FoundNo Family History Records Found Advance Directives No Advanced Directives Records FoundDocuments on File Type Date Recorded 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 Advance Directive(s) 05/31/2017 10:05 AM Advance Directive(s) 05/16/2017 11:40 AM Documents on File Type Date Recorded 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 Advance Directive(s) 05/31/2017 10:05 AM Advance Directive(s) 05/16/2017 11:40 AM Documents on File Type Date Recorded 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 Advance Directive(s) 05/03/2023 1:34 PM Health Concerns Infection Onset Date Last Indicated Resolved Time COVID-19 Confirmed 08/17/2023 08/17/2023 Additional Source Comments (unrecognized sect ion and content) No Status Records FoundNo Status Records Found INFORMATION SOURCE (unrecogn ized section and content) DATE CREATED AUTHOR AUTHOR'S ORGANIZ ATION 08/19/2023 [facility] Source Comments (unrecognize d section and content) In the event this informatio n is protected by the Federal Confidentiality of Alcohol and Drug Abuse Patient Records regulations: The Federal rules restrict any use of the information to criminally investigate or prosecute any alcohol or drug abuse patient.[facility] the event this information is protected by the Federal Confidentiality of Alcohol and Drug Abuse Patient Records regulations: The Federal rules restrict any use of the information to criminally investigate or prosecute any alcohol or drug abuse patient.[facility] the event this information is protected by the Federal Confidentiality of Alcohol and Drug Abuse Patient Records regulations: The Federal rules restrict any use of the information to criminally investigate or prosecute any alcohol or drug abuse patient.[facility] the event this information is protected by the Federal Confidentiality of Alcohol and Drug Abuse Patient Records regulations: The Federal rules restrict any use of the information to criminally investigate or prosecute any alcohol or drug abuse patient.[facility] the event this information is protected by the Federal Confidentiality of Alcohol and Drug Abuse Patient Records regulations: The Federal rules restrict any use of the information to criminally investigate or prosecute any alcohol or drug abuse patient.[facility] the event this information is protected by the Federal Confidentiality of Alcohol and Drug Abuse Patient Records regulations: The Federal rules restrict any use of the information to criminally investigate or prosecute any alcohol or drug abuse patient.[facility] the event this information is protected by the Federal Confidentiality of Alcohol and Drug Abuse Patient Records regulations: The Federal rules restrict any use of the information to criminally investigate or prosecute any alcohol or drug abuse patient.[facility] the event this information is protected by the Federal Confidentiality of Alcohol and Drug Abuse Patient Records regulations: The Federal rules restrict any use of the information to criminally investigate or prosecute any alcohol or drug abuse patient.[facility] the event this information is protected by the Federal Confidentiality of Alcohol and Drug Abuse Patient Records regulations: The Federal rules restrict any use of the information to criminally investigate or prosecute any alcohol or drug abuse patient.[facility] the event this information is protected by the Federal Confidentiality of Alcohol and Drug Abuse Patient Records regulations: The Federal rules restrict any use of the information to criminally investigate or prosecute any alcohol or drug abuse patient.[facility] Reason for Visit (unrecogniz ed section and content) Reason Comments Blood Pressure Check Reason Comments Acute Visit bruise on left arm x 1 week Reason Comments Consult Consult GI Reason Comments Orders Reason Comments Results Care Teams (unrecognized sec tion and content) Hand Bootmaker Relationship Specialty Start Date End Date Natali Mcguire MD [address] [place], [place] [id number] PCP - General Family Practice 07/01/21 Rufino Grimaldo Jr. [address] [phone] Physician Urology 11/19/14 Terra Valdez Physician Infectious Diseases 11/19/14 Hand Bootmaker Relationship Specialty Start Date End Date Natali Mcguire MD [address] [place], [place] [id number] PCP - General Family Practice 07/01/21 Rufino Grimaldo Jr. [address] [phone] Physician Urology 11/19/14 Terra aVldez Physician Infectious Diseases 11/19/14 Hand Bootmaker Relationship Specialty Start Date End Date Natali Mcguire MD [address] [place], [place] [id number] PCP - General Family Practice 07/01/21 Rufino Grimaldo Jr. [address] [phone] Physician Urology 11/19/14 Terra Valdez Physician Infectious Diseases 11/19/14 Hand Bootmaker Relationship Specialty Start Date End Date Natali Mcguire MD [address] [facility] [place] [address] PCP - General Family Practice 07/01/21 Rufino Grimaldo Jr. [address] [phone] Physician Urology 11/19/14 Terra Valdez Physician Infectious Diseases 11/19/14 Hand Bootmaker Relationship Specialty Start Date End Date Natali Mcguire MD [address] [facility] [place] [address] PCP - General Family Medicine 07/01/21 Rufino Grimaldo Jr. [address] [phone] Physician Urology 11/19/14 Terra Valdez MD [address] [phone] Physician Infectious Diseases 11/19/14 Hand Bootmaker Relationship Specialty Start Date End Date Natali Mcguire MD [address] [facility] [place] [address] PCP - General Family Medicine 07/01/21 Rufino Grimaldo Jr. [address] [phone] Physician Urology 11/19/14 Terra Valdez MD [address] [phone] Physician Infectious Diseases 11/19/14 Hand Bootmaker Relationship Specialty Start Date End Date Natali Mcguire MD [address] [place], [place] [id number] PCP - General Family Medicine 07/01/21 Rufino Grimaldo Sayra [address] [phone] Physician Urology 11/19/14 Terra Valdez MD [address] [phone] Physician Infectious Diseases 11/19/14 Hand Bootmaker Relationship Specialty Start Date End Date Natali Mcguire MD [address] [place], [place] [address] PCP - General Family Medicine 07/01/21 Rufino Grimaldo Jr. [address] [phone] Physician Urology 11/19/14 Terra Valdez MD [address] [phone] Physician Infectious Diseases 11/19/14 FOR RECORDS PERTAINING [...] BE BASED ON THE PRIMARY CLINICAL RECORDS. [employer] provides no warranty or guarantee of the accuracy or completeness of information in this document.
[2023-10-06 09:23] LABS: AST(SGOT) 23 U/L (15-37); Alanine Aminotransfer ALT/SGPT 17 U/L (16-61); Albumin, Serum 3.6 g/dL (3.2-5.0); Alkaline Phosphatase 46 U/L (45-117); Bilirubin, Direct 0.18 mg/dL (0.00-0.30); Cholesterol 127 mg/dL (200); Globulin 3.2 g/dL (2.2-4.2); High Density Lipoprotein 50 mg/dL; Protein, Total 6.8 g/dL (6.4-8.2); Triglycerides 73 mg/dL; Very Low Density Lipoprotein 15 mg/dL (5-40)
== END | disposition home or self-care (01) ==
LOC: LAB 08:35
PROVIDERS: Internal Medicine Cardiovascular Disease; PCP Family Medicine; Referring Provider Nurse Practitioner Gerontology; Visit Provider Nurse Practitioner Gerontology
DX: E78.00 Pure hypercholesterolemia, unspecified (principal)
CPT/HCPCS: 36415; 80061; 80076

== ENCOUNTER 2024-03-03 17:38 | Emergency (ER) | payer MEDICARE, OTHER, SELFPAY ==
[2024-03-03 17:38] VITALS: BP 138/81; PULSE 92; RESP 18; TEMP 37; O2SAT 96; BMI 24.0
--- NOTE | 2024-03-03 18:14 | EX.ED.DYSGE1 ---
HPI History of Present Illness Chief Complaint: Complaint Informant: patient Onset/Context/Timing Onset: Yesterday Context: Gradual Onset Timing: Continuous Quality: Burning Location: Suprapubic area Worsened by: Nothing Relieved by: Nothing Narrative Narrative: Patient presents with urinary retention that began yesterday. Patient states he has only been able to urinate small amounts since yesterday. Patient states it is gradually getting worse. Patient states he has some burning over his lower abdomen. Patient states nothing makes it better nothing makes it worse. Patient states he did have a recent fever and went to the urgent care. Patient was diagnosed with a urinary tract infection at that time. Patient was given a prescription for Macrobid. Patient denies any nausea or vomiting. [facility] Medical History (Updated 03/03/24 @ 18:[address] 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) Essential (primary) hypertension [place] (type) II atrioventricular block Atherosclerosis of [place] coronary artery of [place] heart without angina pectoris Hyperlipidemia GERD (gastroesophageal reflux disease) Home Medications ?Medication ?Instructions ?Recorded ?Last Taken ?Type aspirin 81 mg chewable tablet 81 mg PO DAILY@0800 preventative 11/10/14 Unknown History tamsulosin 0.4 mg capsule 0.4 mg PO DAILY@1730 #90 caps 04/16/19 Unknown Rx multivitamin 1 tab PO DAILY 04/22/20 Unknown History latanoprost 0.005 % eye drops ml ophthalmic (eye) 06/01/22 Unknown History timolol maleate 0.5 % eye drops 1 drp ophthalmic (eye) DAILY 06/01/22 Unknown History lisinopril 5 mg tablet 5 mg PO DAILY #90 tabs 03/28/23 Unknown Rx montelukast 10 mg tablet 10 mg PO DAILY PRN 06/23/23 Unknown History nitroglycerin 0.4 mg sublingual 0.4 mg sublingual Q5M PRN Chest 09/14/23 Unknown Rx tablet Pain #25 tabs rosuvastatin 40 mg tablet See Rx Instructions .Route 01/06/24 Unknown Rx .COMPLEX #90 tabs omeprazole 20 mg capsule,delayed See Rx Instructions .Route 02/06/24 Unknown Rx release .COMPLEX #90 caps Allergy/AdvReac Type Severity Reaction Status Date / Time No Known Allergies Allergy Verified 06/23/23 09:13 Family History (Reviewed 06/23/23 @ 09:13 by Treva Grace CHIEF MERCHANDISING OFFICER, CHIEF MERCHANDISING OFFICER-C) Mother Cancer Surgical History Hx of cholecystectomy H/O right coronary artery stent placement (06/1999) H/O coronary artery bypass surgery (09/27/06) Presence of permanent cardiac pacemaker (01/03/17) History of left heart catheterization (2006) Social History Smoking Status: Never smoker alcohol intake: current alcohol intake frequency: a few times a week Alcohol type: beer substance use type: does not use caffeine: Yes Type: coffee Number of servings: 2 what type of physical activity do you participate in: none seatbelt use: always do you feel safe at home: Yes ROS ROS ED Constitutional Constitutional ED: Reports fever(s); Denies chills Eyes Eyes: Denies blurry vision or change in vision ENT ENT ED: Denies rhinorrhea or sore throat Cardiovascular Cardiovascular: Denies chest pain or palpitations Respiratory/Chest Respiratory/Chest: Denies cough or dyspnea Gastrointestinal Gastrointestinal: Denies nausea or vomiting Genitourinary Genitourinary ED: Denies dysuria or hematuria Musculoskeletal Musculoskeletal: Reports back pain; Denies neck pain Integumentary Denies abscess or rash Neurologic Neurologic: Denies headache(s) or weakness Allergic/Immunologic Allergic/Immunologic ED: Denies mouth swelling or urticaria EXAM Physical Exam Const Vital Signs: 03/03/24 17:38 Temperature 98.6 F Temperature Source Oral Pulse Rate 92 Respiratory Rate 18 Blood Pressure 138/81 H Blood Pressure Mean 100 Pulse Ox 96 Oxygen Delivery Method Room Air Positive well nourished and well developed General Appearance ED: well developed and NAD HEENT Reports moist mucous membranes Neck supple and no JVD Resp normal respiratory effort and clear to auscultation bilaterally Cardio regular rate and regular rhythm GI GI Narrative: There is bladder distention noted. There is mild tenderness over the bladder. There is no rebound or guarding noted. Palpation: soft and tender suprapubic; Negative for guarding or splenomegaly Neuro oriented x3, CN's II-XII intact bilaterally and no sensory deficits noted Sensorium / Orientation: alert Motor Exam: strength 5/5 throughout Psych mental status grossly normal MDM MDM MDM Narrative Medical decision making narrative: Bladder scan was performed. There is over 500 cc of urine in the bladder. Because of this, Alonzo catheter was inserted. Patient was instructed to continue his Macrobid as prescribed. Patient was instructed to follow-up with his urologist in 5 to 7 days. Patient understood and was agreeable with the plan. All questions were answered. Discharge Plan Triage Chief Complaint: Complaint ED Provider: Osei Cuneca Dx/Rx/DC Orders Clinical Impression: Acute urinary retention, Urinary tract infection Instructions: ED Alonzo Catheter, Care Prescriptions: No Action multivitamin Tablet 1 tab PO DAILY latanoprost 0.005 % drops ophthalmic (eye) timolol maleate 0.5 % drops 1 drp ophthalmic (eye) DAILY montelukast 10 mg tablet 10 mg PO DAILY PRN aspirin 81 MG tablet,chewable 81 mg PO DAILY@0800 Patient Comments: heart health tamsulosin 0.4 MG capsule 0.4 mg PO DAILY@1730 Qty: 90 0RF lisinopril 5 mg tablet 5 mg PO DAILY Qty: 90 3RF nitroglycerin 0.4 mg tablet, sublingual 0.4 mg SUBLINGUAL Q5M PRN (Reason: Chest Pain) Qty: 25 3RF rosuvastatin 40 mg tablet See Rx Instructions .ROUTE .COMPLEX Qty: 90 3RF Dose Instruction: TAKE 1 TABLET BY MOUTH EVERY DAY FOR CHOLESTEROL Rx Instructions: TAKE 1 TABLET BY MOUTH EVERY DAY FOR CHOLESTEROL omeprazole 20 mg capsule,delayed release(DR/EC) See Rx Instructions .ROUTE .COMPLEX Qty: 90 3RF Dose Instruction: TAKE 1 CAPSULE BY MOUTH EVERY DAY FOR GASTRIC REFLUX Rx Instructions: TAKE 1 CAPSULE BY MOUTH EVERY DAY FOR GASTRIC REFLUX Primary Care Provider: Pipo Shah Referrals: Pipo Shah MD [Primary Care Provider] - 5-7 Days Mike Green MD [Med Staff - Active Staff] - 2 Days Print Language: Citizen [place] Disposition Disposition: Home, Self Care
[2024-03-03 18:46] VITALS: BP 122/97; PULSE 69; RESP 17; TEMP 36.1; O2SAT 100
== END 2024-03-03 18:47 | disposition home or self-care (01) ==
PROVIDERS: Emergency Provider Emergency Medicine; PCP Family Medicine; Visit Provider Emergency Medicine
DX: R33.9 Retention of urine, unspecified (principal); N39.0 Urinary tract infection, site not specified; I25.2 Old myocardial infarction; Z95.5 Presence of coronary angioplasty implant and graft; Z95.0 Presence of cardiac pacemaker; Z95.1 Presence of aortocoronary bypass graft
CPT/HCPCS: 51702; 99283

== ENCOUNTER → 2024-04-09 | Outpatient (CLI) | payer MEDICARE, OTHER, SELFPAY | END | disposition home or self-care (01) | PROVIDERS: PCP Family Medicine; Referring Provider Urology; Visit Provider Urology | DX: R97.20 Elevated prostate specific antigen [PSA] (principal) | CPT/HCPCS: 36415; 84153 ==

== ENCOUNTER → 2024-09-04 | Outpatient (CLI) | payer MEDICARE, OTHER, SELFPAY ==
--- NOTE | 2024-09-04 09:42 | ECHOD_ITS ---
Reason For Study: CORONARY ARTERY DISEASE Procedure This was a 2D Doppler, Color Flow transthoracic echocardiogram. Exam performed in department. Left Ventricle Normal LV size. The left ventricular ejection fraction is 60 %. Stage 1 diastolic dysfunction. No regional wall motion abnormalities noted. Right Ventricle Normal RV size. ICD or pacer leads identified within the right ventricle. Normal systolic function. Atria Normal left atrium. Normal right atrium. Mitral Valve Normal mitral valve. Tricuspid Valve Normal tricuspid valve. Mild (1+) tricuspid valve insufficiency. Pulmonary artery systolic pressure is 30 mmHg. Aortic Valve Trisinus/trileaflet aortic valve. Mild (1+) aortic valve insufficiency. Pulmonic Valve Normal pulmonic valve. Great Vessels Mildly dilated aortic root. The pulmonary artery is normal size. Inferior vena cava collapse with respiration. Pericardium/Pleural No pericardial effusion. MMode/2D Measurements & Calculations LVIDd: 4.3 cm IVSd: 1.2 cm LVOT diam: 2.2 cm LVIDs: 2.6 cm LVPWd: 1.1 cm LVOT area: 3.8 cm2 RVDd: 4.4 cm FS: 39.3 % asc Aorta Diam: 4.0 cm LAV(MOD-bp): 43.4 ml LVAd ap4: 23.0 cm2 LAV(MOD-bp) Indexed: 22.9 ml/m2 LVLd ap4: 7.4 cm LAV(MOD-sp2): 44.9 ml EDV(MOD-sp4): 59.2 ml LAV(MOD-sp4): 39.3 ml EDV(sp4-el): 60.7 ml LVAs ap4: 13.2 cm2 LVLs ap4: 6.1 cm ESV(MOD-sp4): 23.3 ml ESV(sp4-el): 24.0 ml EF(MOD-sp4): 60.6 % EF(sp4-el): 60.6 % LVAd ap2: 24.9 cm2 SV(MOD-sp4): 35.9 ml SV(MOD-sp2): 38.2 ml LVLd ap2: 8.2 cm SI(MOD-sp4): 18.9 ml/m2 SI(MOD-sp2): 20.1 ml/m2 EDV(MOD-sp2): 64.0 ml EDV(sp2-el): 64.6 ml LVAs ap2: 14.2 cm2 LVLs ap2: 6.5 cm ESV(MOD-sp2): 25.8 ml ESV(sp2-el): 26.2 ml EF(MOD-sp2): 59.7 % SV(sp4-el): 36.8 ml Ao sinus diam: 3.[address] Junction: 3.3 cm LA dimension(2D): 4.1 cm LA A4 area: 14.8 cm2 RA A4 area: 13.6 cm2 TAPSE: 1.2 cm Time Measurements MV dec time: 0.27 sec Doppler Measurements & Calculations MV E max amari: 61.7 cm/sec Lat Peak E' Amari: 10.3 cm/sec Med Peak E' Amari: 6.1 cm/sec MV A max amari: 74.3 cm/sec E/E' lat: 6.0 E/E' med: 10.1 MV E/A: 0.83 MV dec slope: 231.4 cm/sec2 Ao V2 max: 126.9 cm/sec AI max amari: 375.8 cm/sec Ao max P.4 mmHg AI max P.0 mmHg Ao V2 mean: 87.9 cm/sec AI dec slope: 176.1 cm/sec2 Ao mean P.4 mmHg AI P1/2t: 625.0 msec Ao V2 VTI: 27.1 cm AV (velocity ratio): 0.62 JOE(I,D): 2.3 cm2 JOE(V,D): 2.2 cm2 LV V1 max: 74.3 cm/sec SV(LVOT): 63.3 ml PA V2 max: 144.0 cm/sec LV V1 max P.2 mmHg LV V1 mean P.3 mmHg LV V1 mean: 53.2 cm/sec LV V1 VTI: 16.7 cm PI end-d amari: 93.4 cm/sec TR max amari: 255.8 cm/sec TR max P.2 mmHg ECHO/Echo Complete Interpretation Summary Normal LV size. The left ventricular ejection fraction is 60 %. Stage 1 diastolic dysfunction. Pulmonary artery systolic pressure is 30 mmHg. Mildly dilated aortic root. Ordering Physician: Bill Asif Referring Physician: Bill Asif MD Performed By: Elena Camara, SYED
== END | disposition home or self-care (01) ==
PROVIDERS: PCP Family Medicine; Referring Provider Internal Medicine Cardiovascular Disease; Visit Provider Internal Medicine Cardiovascular Disease
DX: I25.10 Atherosclerotic heart disease of native coronary artery without angina pectoris (principal); I25.2 Old myocardial infarction; I10 Essential (primary) hypertension; R01.1 Cardiac murmur, unspecified
CPT/HCPCS: 93306